=== PATIENT | female | born 1945 | race Caucasian/White ===

== ENCOUNTER 2022-11-28 01:24 | Observation (INO) | payer OTHER ==
[2022-11-28] MEDS ORDERED: ONDANSETRON 4 MG/2 ML VIAL ONE (01:55)
[2022-11-28] MEDS ORDERED: FENTANYL CITR 100 MCG/2 ML ONE ×2 (01:55→03:06)
[2022-11-28] MEDS ORDERED: NA CHLORIDE 0.9% 500 ML ONE (01:55)
[2022-11-28 02:19] LABS: Absolute Lymphocytes (CBC) 1.6 K/uL (0.7-4.9); Hematocrit 36.8 % (36.0-45.0); Lymphocytes % 18.1 % (15.3-44.8); MCV 96.1 fL (80-100); MPV 9.1 fL (7.6-11.3); RBC Red Blood Cell Count 3.83 M/uL (3.86-4.86)
[2022-11-28 02:34] LABS: Bilirubin Total 0.6 mg/dL (0.2-1.0); Potassium 3.5 mEq/L (3.5-5.1)
[2022-11-28] MEDS ORDERED: DIAZEPAM 5 MG TABLET ONE (03:07)
[2022-11-28] MEDS ORDERED: KETOROLAC 30 MG/ML INJ ONE (03:08)
[2022-11-28] MEDS ORDERED: dexAMETHasone 10 MG/ML VIAL ONE (03:08)
--- NOTE | 2022-11-28 03:24 | EDPHYS ---
Physician Documentation [facility] Name: Christal Krishnamurthy Age: 77 yrs Sex: Female : 1945 Arrival Date: 11/28/2022 Time: 01:24 Bed 6 Private MD: ED Physician Jose Aguilar HPI: 11/28 02:06 This 77 yrs old Female presents to ER via EMS with complaints of right hip ana and back pain. 02:06 The patient or guardian reports decreased range of motion, pain. that occurred at an [facility] unknown site. The complaints affect the lumbar area. Onset: The symptoms/episode began/occurred yesterday. Modifying factors: The symptoms are alleviated by nothing, the symptoms are aggravated by any movement. The patient presents with pain that is acute. Onset: The symptoms/episode began/occurred yesterday, 1 day(s) ago. Historical: - Allergies: 01:27 Nexium; jb4 01:27 Latex, Natural Rubber; jb4 01:27 Levaquin; jb4 01:27 Wheat/glutens; jb4 01:27 Wine; jb4 01:27 Eggs; jb4 01:27 Cyanoacrylates; jb4 01:27 Amoxicillin; jb4 01:27 Antihistamine with decongestant; jb4 - PMHx: 01:27 Asthma; jb4 - PSHx: 01:27 Back; heart bypass; jb4 - Immunization history:: Adult Immunizations up to date. - Family history:: not pertinent. - Social history:: Smoking status: Patient denies any tobacco usage or history of. ROS: 02:06 Constitutional: Negative for fever, chills, and weight loss, Eyes: Negative for injury, ana pain, redness, and discharge, ENT: Negative for injury, pain, and discharge, Neck: Negative for injury, pain, and swelling, Cardiovascular: Negative for chest pain, palpitations, and edema, Respiratory: Negative for shortness of breath, cough, wheezing, and pleuritic chest pain, Abdomen/GI: Negative for abdominal pain, nausea, vomiting, diarrhea, and constipation, : Negative for injury, bleeding, discharge, and swelling, Skin: Negative for injury, rash, and discoloration, Neuro: Negative for headache, weakness, numbness, tingling, and seizure, Psych: Negative for depression, anxiety, suicide ideation, homicidal ideation, and hallucinations, Allergy/Immunology: Negative for hives, rash, and allergies, Endocrine: Negative for neck swelling, polydipsia, polyuria, polyphagia, and marked weight changes, Hematologic/Lymphatic: Negative for swollen nodes, abnormal bleeding, and unusual bruising. 02:06 Back: Positive for injury or acute deformity, decreased range of motion, pain with movement, of the lumbar area. Exam: 02:06 Constitutional: This is a well developed, well nourished patient who is awake, alert, ana and in no acute distress. Head/Face: Normocephalic, atraumatic. Eyes: Pupils equal round and reactive to light, extra-ocular motions intact. Lids and lashes normal. Conjunctiva and sclera are non-icteric and not injected. Cornea within normal limits. Periorbital areas with no swelling, redness, or edema. ENT: Nares patent. No nasal discharge, no septal abnormalities noted. Tympanic membranes are normal and external auditory canals are clear. Oropharynx with no redness, swelling, or masses, exudates, or evidence of obstruction, uvula midline. Mucous membranes moist. Neck: Trachea midline, no thyromegaly or masses palpated, and no cervical lymphadenopathy. Supple, full range of motion without nuchal rigidity, or vertebral point tenderness. No Meningismus. Chest/axilla: Normal chest wall appearance and motion. Nontender with no deformity. No lesions are appreciated. Cardiovascular: Regular rate and rhythm with a normal S1 and S2. No gallops, murmurs, or rubs. Normal PMI, no JVD. No pulse deficits. Respiratory: Lungs have equal breath sounds bilaterally, clear to auscultation and percussion. No rales, rhonchi or wheezes noted. No increased work of breathing, no retractions or nasal flaring. Abdomen/GI: Soft, non-tender, with normal bowel sounds. No distension or tympany. No guarding or rebound. No evidence of tenderness throughout. Female : Normal external genitalia. Skin: Warm, dry with normal turgor. Normal color with no rashes, no lesions, and no evidence of cellulitis. MS/ Extremity: Pulses equal, no cyanosis. Neurovascular intact. Full, normal range of motion. Neuro: Awake and alert, GCS 15, oriented to person, place, time, and situation. Cranial nerves II-XII grossly intact. Motor strength 5/5 in all extremities. Sensory grossly intact. Cerebellar exam normal. Normal gait. Psych: Awake, alert, with orientation to person, place and time. Behavior, mood, and affect are within normal limits. 02:06 Back: pain, that is moderate, ROM is painful, normal spinal alignment noted, CVA tenderness, is absent. Vital Signs: 01:25 BP 149 / 66; Pulse 56; Resp 16; Temp 98(O); Pulse Ox 98% on R/A; Weight 72.57 kg (R); jb4 Height 5 ft. 5 in. (R); Pain 0/10; 03:22 BP 120 / 68; Pulse 51; Resp 18; Pulse Ox 96% on R/A; as6 04:09 BP 117 / 59; Pulse 81; Resp 18 S; Pulse Ox 95% on R/A; as6 01:25 Body Mass Index 26.63 (72.57 kg, 165.1 cm) jb4 01:25 Pain Scale: Adult jb4 MDM: 01:39 Patient medically screened. [facility] 02:10 Differential diagnosis: bursitis, arthritis, strain, arthritis. Data reviewed: vital ana signs, nurses notes, lab test result(s), radiologic studies, CT scan. Consideration of Admission/Observation Escalation of care including admission/observation considered. I considered the following discharge prescriptions or medication management in the emergency department Medications were administered in the Emergency Department. See MAR. Independent interpretation of the following test(s) in the Emergency Department CT Scan: My interpretation is ct lumbar. Test considered but Not performed: MRI: no mri. Historians other than the Patient: Spouse/Significant Other: . Care significantly affected by the following chronic conditions: asthma. Counseling: I had a detailed discussion with the patient and/or guardian regarding: the historical points, exam findings, and any diagnostic results supporting the discharge/admit diagnosis, lab results, radiology results. 11/28 01:39 Order name: CBC with Diff; Complete Time: 02:45 ana 11/28 01:39 Order name: Comprehensive Metabolic Panel; Complete Time: 02:45 ana 11/28 01:39 Order name: Urinalysis w/ reflexes ana 11/28 01:39 Order name: Lipase; Complete Time: 02:45 ana 11/28 03:42 Order name: Urinalysis w/ reflexes EDMS 11/28 03:42 Order name: Basic Metabolic Panel EDMS 11/28 03:42 Order name: Basic Metabolic Panel EDMS 11/28 03:42 Order name: Basic Metabolic Panel EDMS 11/28 03:42 Order name: Basic Metabolic Panel EDMS 11/28 03:42 Order name: CBC with Automated Diff EDMS 11/28 03:42 Order name: CBC with Automated Diff EDMS 11/28 03:42 Order name: CBC with Automated Diff EDMS 11/28 03:42 Order name: CBC with Automated Diff EDMS 11/28 01:39 Order name: CT Lumbar Spine Wo Con ana 11/28 02:17 Order name: Hip Right 2 View EDMS 11/28 03:42 Order name: Physical Therapy Consult EDMS Administered Medications: 01:52 Drug: NS 0.9% IV 500 ml Route: IV; Rate: bolus; Site: right antecubital; jb4 04:16 Follow up: Response: No adverse reaction; IV Status: Completed infusion; IV Intake: as6 500ml 01:52 Drug: fentaNYL (PF) IVP 25 mcg Route: IVP; Site: right antecubital; jb4 04:16 Follow up: Response: No adverse reaction as6 01:52 Drug: Ondansetron IVP 4 mg Route: IVP; Site: right antecubital; jb4 04:16 Follow up: Response: No adverse reaction as6 03:12 Drug: fentaNYL (PF) IVP 25 mcg Route: IVP; Site: right antecubital; jb4 04:16 Follow up: Response: No adverse reaction as6 03:12 Drug: Decadron - Dexamethasone IVP 10 mg Route: IVP; Site: right antecubital; jb4 04:16 Follow up: Response: No adverse reaction as6 03:12 Drug: Diazepam PO 5 mg Route: PO; jb4 04:16 Follow up: Response: No adverse reaction as6 03:12 Drug: Ketorolac IVP 15 mg Route: IVP; Site: right antecubital; jb4 04:15 Follow up: Response: No adverse reaction as6 Disposition Summary: 11/28/22 03:23 Hospitalization Ordered Hospitalization Status: Observation ana Provider: Thong Hui cha Location: Telemetry/MedSurg (observation) ana Condition: Stable ana Problem: new ana Symptoms: have improved ana Bed/Room Type: Standard ana Room Assignment: 211(11/28/22 03:26) mw Diagnosis - Low back pain ana - Sciatica, right side ana - Unspecified symptoms and signs involving the musculoskeletal system ana Forms: - Medication Reconciliation Form ana - SBAR form ana Signatures: Dispatcher [employer] EDMS Joanie Clarke RN RN mw Anderson, Corey, MD MD cha Bryson, James, RN RN jb4 Yoel Gandara RN RN as6 Corrections: (The following items were deleted from the chart) 02: 02:06 Hip Left 2 View+RAD.RAD.BRZ ordered. EDMS EDMS 02:17 02:10 Hip Right 2 View+RAD.RAD.BRZ ordered. EDMS EDMS 03:26 03:23 ana mw
--- NOTE | 2022-11-28 03:24 | ER ---
Nurse's Notes [facility] Name: Christal Krishnamurthy Age: 77 yrs Sex: Female : 1945 Arrival Date: 11/28/2022 Time: 01:24 Bed 6 Private MD: Diagnosis: Low back pain;Sciatica, right side;Unspecified symptoms and signs involving the musculoskeletal system Presentation: 11/28 01:25 Chief complaint: EMS states: Pt reports moving into a new house. Was moving objects for jb4 the new house, started having lower back pain around 10am. It has progressively gotten worse. Denies falling or any other trauma. Coronavirus screen: At this time, the client does not indicate any symptoms associated with coronavirus-19. Ebola Screen: No symptoms or risks identified at this time. Initial Sepsis Screen: Does the patient meet any 2 criteria? No. Patient's initial sepsis screen is negative. Does the patient have a suspected source of infection? No. Patient's initial sepsis screen is negative. Risk Assessment: Do you want to hurt yourself or someone else? Patient reports no desire to harm self or others. Onset of symptoms was November 28, 2022. Transition of care: patient was not received from another setting of care. 01:25 Method Of Arrival: EMS: [facility] 01:25 Acuity: ARETHA 4 jb4 Historical: - Allergies: 01:27 Nexium; jb4 01:27 Latex, Natural Rubber; jb4 01:27 Levaquin; jb4 01:27 Wheat/glutens; jb4 01:27 Wine; jb4 01:27 Eggs; jb4 01:27 Cyanoacrylates; jb4 01:27 Amoxicillin; jb4 01:27 Antihistamine with decongestant; jb4 - PMHx: 01:27 Asthma; jb4 - PSHx: 01:27 Back; heart bypass; jb4 - Immunization history:: Adult Immunizations up to date. - Family history:: not pertinent. - Social history:: Smoking status: Patient denies any tobacco usage or history of. Screenin:08 [facility] ED Fall Risk Assessment (Adult) Score/Fall Risk Level 0 - 2 = Low Risk. Abuse as6 screen: Denies threats or abuse. Denies injuries from another. Nutritional screening: No deficits noted. Tuberculosis screening: No symptoms or risk factors identified. Assessment: 01:30 General: Appears in no apparent distress. comfortable, Behavior is calm, cooperative, jb4 appropriate for age. Pain: Complains of pain in low back area Pain does not radiate. Pain currently is 0 out of 10 on a pain scale. at worst was 10 out of 10 on a pain scale. Neuro: Level of Consciousness is awake, alert, obeys commands, Oriented to person, place, time, situation. Cardiovascular: Patient's skin is warm and dry. Respiratory: Airway is patent Respiratory effort is even, unlabored, Respiratory pattern is regular, symmetrical. GI: No signs and/or symptoms were reported involving the gastrointestinal system. : No signs and/or symptoms were reported regarding the genitourinary system. EENT: No signs and/or symptoms were reported regarding the EENT system. Derm: Skin is intact, Skin is pink, warm \T\ dry. Musculoskeletal: Circulation, motion, and sensation intact. Range of motion: intact in all extremities. 02:02 Reassessment: Patient appears in no apparent distress at this time. Patient and/or jb4 family updated on plan of care and expected duration. Pain level reassessed. Patient is alert, oriented x 3, equal unlabored respirations, skin warm/dry/pink. Vital Signs: 01:25 BP 149 / 66; Pulse 56; Resp 16; Temp 98(O); Pulse Ox 98% on R/A; Weight 72.57 kg (R); jb4 Height 5 ft. 5 in. (R); Pain 0/10; 03:22 BP 120 / 68; Pulse 51; Resp 18; Pulse Ox 96% on R/A; as6 04:09 BP 117 / 59; Pulse 81; Resp 18 S; Pulse Ox 95% on R/A; as6 01:25 Body Mass Index 26.63 (72.57 kg, 165.1 cm) jb4 01:25 Pain Scale: Adult jb4 ED Course: 01:24 Patient arrived in ED. as6 01:25 Geovani Reddy, MELCHOR is Primary Nurse. jb4 01:27 Triage completed. jb4 01:30 Arm band placed on right wrist. jb4 01:36 Jose Aguilar MD is Attending Physician. ana 02:17 Hip Right 2 View In Process Unspecified. EDMS 02:29 CT Lumbar Spine Wo Con In Process Unspecified. EDMS 02:40 Inserted saline lock: 20 gauge in right antecubital area, using aseptic technique. as6 Blood collected. 03:23 Thong Hui MD is Hospitalizing Provider. ana 04:08 Bed in low position. Call light in reach. Adult w/ patient. as6 04:08 No provider procedures requiring assistance completed. Patient admitted, IV remains in as6 place. Administered Medications: 01:52 Drug: NS 0.9% IV 500 ml Route: IV; Rate: bolus; Site: right antecubital; jb4 04:16 Follow up: Response: No adverse reaction; IV Status: Completed infusion; IV Intake: as6 500ml 01:52 Drug: fentaNYL (PF) IVP 25 mcg Route: IVP; Site: right antecubital; jb4 04:16 Follow up: Response: No adverse reaction as6 01:52 Drug: Ondansetron IVP 4 mg Route: IVP; Site: right antecubital; jb4 04:16 Follow up: Response: No adverse reaction as6 03:12 Drug: fentaNYL (PF) IVP 25 mcg Route: IVP; Site: right antecubital; jb4 04:16 Follow up: Response: No adverse reaction as6 03:12 Drug: Decadron - Dexamethasone IVP 10 mg Route: IVP; Site: right antecubital; jb4 04:16 Follow up: Response: No adverse reaction as6 03:12 Drug: Diazepam PO 5 mg Route: PO; jb4 04:16 Follow up: Response: No adverse reaction as6 03:12 Drug: Ketorolac IVP 15 mg Route: IVP; Site: right antecubital; jb4 04:15 Follow up: Response: No adverse reaction as6 Medication: 04:08 VIS not applicable for this client. as6 Intake: 04:16 IV: 500ml; Total: 500ml. as6 Outcome: 03:23 Decision to Hospitalize by Provider. ana 04:08 Admitted to Med/surg family with patient, via stretcher, room 211, with chart. as6 04:08 Condition: stable 04:08 Instructed on the need for admit. 04:15 Patient left the ED. as6 Signatures: Dispatcher [employer] EDJose Muñiz MD MD cha Bryson, James, RN RN jb4 Yoel Gandara RN RN as6 Corrections: (The following items were deleted from the chart) 01:30 01:25 Acuity: ARETHA 2 jb4 jb4
[2022-11-28] MEDS ORDERED: ACETAMINOPHEN 500 MG TAB PO PRN (03:35)
--- NOTE | 2022-11-28 03:35 | P.HP ---
Certification for Inpatient Patient admitted to: Observation With expected LOS: <2 Midnights Patient will require the following post-hospital care: Other (OP PT, OT,) Practitioner: I am a practitioner with admitting privileges, knowledge of patient current condition, hospital course, and medical plan of care. Services: Services provided to patient in accordance with Admission requirements found in Title 42 Section 412.3 of the Code of Federal Regulations <Cookie Hart - Last Filed: 11/28/22 04:47> Patient History Date of Service: 11/28/22 Reason for admission: intractable back pain History of Present Illness: 77 yrs old Female with past medical history of Chronic lung disease on home 02 prn and HS, asthma, Hypothyroidism, DJD, OA, diverticulitis, frequent falls, depression, WINNIE, presents to ER via EMS with complaints of lumbar back pain. She reports that the pain radiates to abdomen that is intermittent, made worse by ambulation, bending, turning. She reports history x 4 Back surgeries in the past. She reports she has been moving for the past 3 weeks and lifting a few things, that may have triggered her back pain. She reports she had difficulty rising from the commode, she denies bars in her bathroom, (may benefit from raised toilet seat with bars). She reports the low back pain was worse today. She reports history of falls, she does not have rolling walker with seat. She reports back pain is better with rest, pain medications. She denies fever, dysuria, She denies pain radiating to lower extremities, no lower ext weakness, denies incont of Bowel or bladder, chest pain. She reports needing 02 with ambulation, which she has at home, but has trouble carrying with her back pain. , is at bedside. . - Past Medical/Surgical History -: OA -: DJD -: chronic low back pain -: Depression -: History of falls -: Asthma -: WINNIE -: Chronic lung disease on home 02 prn and HS -: Hyppthyroidism -: Diverticulosis -: X4 Back surgeries -: Hystertectomy -: Knee scraping of deposits Psychosocial/ Personal History: , retired, good family support, lives in a 2 story home - Social History Smoking Status: Never smoker Alcohol use: No <Cookie Hart - Last Filed: 11/28/22 04:47> Date of Service: 11/28/22 <Thong Hui - Last Filed: 11/28/22 10:49> Allergies 2-octyl cyanoacrylate [octyl 2-cyanoacrylate] Allergy (Verified 04/09/12 09:07) Anaphylaxis amoxicillin [Amoxicillin] Allergy (Verified 04/09/12 09:07) Rash esomeprazole mag [From Nexium] Allergy (Verified 04/09/12 09:02) Anaphylaxis wheat Allergy (Verified 04/09/12 09:07) Anaphylaxis Antihistamines - Alkylamine Adverse Reaction (Verified 04/09/12 09:07) states in ones with decongestants it aggrevates her heart levofloxacin [From Levaquin] Adverse Reaction (Verified 04/09/12 09:07) stomach cramps metronidazole Adverse Reaction (Verified 04/09/12 09:07) stomach cramps rosuvastatin calcium [From Crestor] Adverse Reaction (Verified 04/09/12 09:07) weakness Physical Examination - Physical Exam General: Alert, In no apparent distress, Oriented x3, Other (moderate generalized weakness) HEENT: Atraumatic, Normocephalic, PERRLA Neck: Supple, 2+ carotid pulse no bruit Respiratory: Clear to auscultation bilaterally, Normal air movement Cardiovascular: No edema, Regular rate/rhythm, Normal S1 S2 Capillary refill: <2 Seconds Gastrointestinal: Normal bowel sounds, Non-distended Musculoskeletal: No clubbing, No swelling, Other (lumbar, paraspinal tenderness, pain with ROM) Integumentary: No rashes, No breakdown Neurological: Normal strength at 5/5 x4 extr, Cranial nerves 3-12 intact External genitalia: No edema, No lesions - Studies Laboratory Data (last 24 hrs) 11/28/22 01:44: Sodium 137, Potassium 3.5, BUN 17, Creatinine 0.56, Glucose 123 H, Total Bilirubin 0.6, AST 12 L, ALT 16, Alkaline Phosphatase 35 L, Lipase 22 11/28/22 01:44: WBC 8.60, Hgb 12.3, Hct 36.8, Plt Count 167 <Cookie Hart - Last Filed: 11/28/22 04:47> - Studies Laboratory Data (last 24 hrs) 11/28/22 01:44: Sodium 137, Potassium 3.5, BUN 17, Creatinine 0.56, Glucose 123 H, Total Bilirubin 0.6, AST 12 L, ALT 16, Alkaline Phosphatase 35 L, Lipase 22 11/28/22 01:44: WBC 8.60, Hgb 12.3, Hct 36.8, Plt Count 167 <Thong Hui - Last Filed: 11/28/22 10:49> Assessment and Plan - Problems (Diagnosis) (1) Intractable back pain Current Visit: Yes Status: Acute Plan: PRN analgesics PT/OT fall precaution (2) DJD (degenerative joint disease) Current Visit: Yes Status: Acute Plan: Prn analgesics, muscle relaxers PT/OT will like need OP PT/OT for gait training, exercises Qualifiers: Osteoarthritis location: knee Osteoarthritis type: unspecified (3) Osteoarthritis (arthritis due to wear and tear of joints) Current Visit: Yes Status: Acute Qualifiers: Osteoarthritis location: knee (4) Falls frequently Current Visit: Yes Status: Chronic Plan: PT/OT gait training fall precautions (5) Chronic lung disease Current Visit: Yes Status: Chronic Plan: resume approp home med o2 2L PRN, HS (6) On home oxygen therapy Current Visit: Yes Status: Chronic (7) Hypothyroidism Current Visit: Yes Status: Chronic Plan: resume home medications Discharge Plan: Home Plan to discharge in: 48 Hours - Advance Directives Does patient have a Living Will: No Does patient have a Durable POA for Healthcare: No - Code Status/Comfort Care Code Status: Full Code Physician Review: Patient Assessed, Agree with Above Assessment and Plan Critical Care: No Time Spent Managing Pts Care (In Minutes): 55 <Cookie Hart - Last Filed: 11/28/22 04:47> Physician Review: Patient Assessed, Agree with Above Assessment and Plan <Thong Hui - Last Filed: 11/28/22 10:49>
[2022-11-28] MEDS ORDERED: CYCLOBENZAPRINE 10 MG TAB PO PRN (03:41)
[2022-11-28] MEDS ORDERED: HYDROCODONE/APAP 5/325 MG TAB PO PRN (04:18)
[2022-11-28 05:03] VITALS: BMI 28.3
[2022-11-28] MEDS ORDERED: POTASSIUM CL SA 10 MEQ TAB PO ONE (06:00)
[2022-11-28] MEDS ORDERED: PNEUMOCOCCAL VACCINE 0.5 ML IMVAC ONE (08:00)
[2022-11-28] MEDS ORDERED: ONDANSETRON 4 MG/2 ML VIAL IV PRN (08:00)
[2022-11-28 08:11] VITALS: BP 136/68; TEMP 97.5
[2022-11-28] MEDS ORDERED: ENOXAPARIN 40 MG/0.4 ML SQ SCH (09:00)
[2022-11-28] MEDS ORDERED: LIDOCAINE 4% PATCH TOP SCH (09:00)
--- NOTE | 2022-11-28 09:05 | RAD REPORT ---
EXAM DESCRIPTION: RAD - Hip Right 2 View - 11/28/2022 2:16 am CLINICAL HISTORY: Right hip pain FINDINGS: The examination was submitted to [facility] but did not get dictated. It is being submitted fo [facility] for interpretation now. No fracture or dislocation is seen. Mild joint space narrowing with mild subchondral sclerosis. Calcification adjacent to the greater tro chanter right femur likely chronic
[2022-11-28 09:12] LABS: Specific Gravity 1.021 (1.005-1.030); Urine Bacteria None Seen /HPF (<20); Urine Bilirubin NEGATIVE (Negative); Urine Blood Negative (Negative); Urine Clarity Clear (Clear); Urine Color Yellow (Yellow); Urine Glucose 4+ (Over) (Negative); Urine Protein NEGATIVE (Negative); Urine RBC <5 /HPF (None Seen); Urine Urobilinogen Normal (Normal); Urine pH 6.5 (5.0-7.0)
[2022-11-28 10:01] VITALS: O2SAT 91
--- NOTE | 2022-11-28 10:56 | P.DS ---
Admission Date: 11/28/22 Discharge Date: 11/28/22 Disposition: ROUTINE DISCHARGE Reason for Admission: intractable back pain Hospital Course: DIAGNOSES: # Acute on Chronic Back Pain likely secondary to Muscle Strain # Mild- Moderate Central Canal Stenosis (L1-L2, L2-L3) # Severe Central Canal Stenosis (L3-L4) # Chronic Hypoxic Respiratory Failure secondary to Pulmonary Hypertension on PRN Home Oxygen # Chronic Compensated Congestive Heart Failure - Unknown Ejection Fraction # Obstructive Sleep Apnea # Asthma # Hypothyroidism # Depression # Splenic Artery Aneurysm (1.6 cm) HOSPITAL COURSE: Ms. Christal Krishnamurthy is a pleasant 77 year old female with a past medical history significant for spinal stenosis s/p 4 prior back surgeries, chronic hypoxic respiratory failure secondary to pulmonary hypertension on as needed home oxygen, obstructive sleep apnea, asthma, hypothyroidism, depression who was admitted to the [facility] on 11/28/2022 for back pain. She was admitted to the Medicine service. Upon further evaluation, she reported that she has been moving heavy boxes over the last 3-4 weeks. Since then, she has been experiencing significant lower back pain. She has a history of chronic back pain and feels that her symptoms had gotten worse. Her right hip x-ray revealed, "no fracture or dislocation is seen. Mild joint space narrowing with mild subchondral sclerosis. Calcification adjacent to the greater trochanter right femur likely chronic." Her CT lumbar spine revealed, "1. No acute fracture or subluxation of the lumbar spine. 2. Multilevel degenerative changes of the lumbar spine as described. Severe central canal stenosis at L3-L4 with grade 1 anterolisthesis of L3 on L4. Prominent left neural foraminal narrowing at L4-L5. 3. Peripherally calcified lesion in the left upper quadrant likely splenic artery aneurysm measuring approximately 1.6 cm in diameter, likely incidental finding." Over the course of her hospitalization, her symptoms improved significantly. Physical Therapy was consulted. She was able to walk 250 feet with PT. PT recommended that she be discharged with a walker and, with the assistance of case management, this was arranged. During her stay, she did not exhibit any alarm symptoms. She specifically denied any fevers, chills, unilateral weakness, saddle anesthesia, or urinary/bowel incontinence. On 11/28/2022, she was seen on rounds and deemed medically stable for discharge. She was discharged with instructions to schedule follow-up appointments with her PCP (Dr. Li) and her Back Surgeon. She and family members were given the opportunity to ask questions and reported no further questions. Furthermore, all questions were answered to the best of my ability. A copy of this discharge summary will be sent to the above providers to facilitate continuity of care. Today, I personally spent 25 minutes on her case, of which greater than 50% of the time was spent in patient education, counseling, and coordination of care as described above. Vital Signs/Physical Exam: Temp Pulse Resp BP Pulse Ox 97.5 F 52 15 136/68 95 11/28/22 08:00 11/28/22 08:00 11/28/22 08:00 11/28/22 08:00 11/28/22 08:00 General: Alert, In no apparent distress, Oriented x3 HEENT: Atraumatic, Mucous membr. moist/pink, Sclerae nonicteric Neck: JVD not distended Respiratory: Clear to auscultation bilaterally, Normal air movement Cardiovascular: No edema, Regular rate/rhythm, Normal S1 S2, No gallops, No rubs, No murmurs Gastrointestinal: Normal bowel sounds, Soft and benign, Non-distended, No tenderness, No rebound, No guarding Musculoskeletal: No clubbing, Other (lower back pain to palpation) Integumentary: No rashes Neurological: Normal speech, Normal strength at 5/5 x4 extr, Sensation intact, Cranial nerves 3-12 intact, Normal affect Laboratory Data at Discharge: WBC 8.60 thou/uL (4.3-10.9) 11/28/22 01:44 Hgb 12.3 g/dL (12.0-15.0) 11/28/22 01:44 Hct 36.8 % (36.0-45.0) 11/28/22 01:44 Plt Count 167 thou/uL (152-406) 11/28/22 01:44 Sodium 137 mEq/L (136-145) 11/28/22 01:44 Potassium 3.5 mEq/L (3.5-5.1) 11/28/22 01:44 BUN 17 mg/dL (7-18) 11/28/22 01:44 Creatinine 0.56 mg/dL (0.55-1.02) 11/28/22 01:44 Glucose 123 mg/dL (74-106) H 11/28/22 01:44 Total Bilirubin 0.6 mg/dL (0.2-1.0) 11/28/22 01:44 AST 12 U/L (15-37) L 11/28/22 01:44 ALT 16 U/L (13-56) 11/28/22 01:44 Alkaline Phosphatase 35 U/L (45-117) L 11/28/22 01:44 Lipase 22 U/L (13-75) 11/28/22 01:44 Home Medications: Lidocaine 4% Patch [Lidoderm 5% Patch*] 1 patch TOP DAILY pat 11/28/22 Physician Discharge Instructions: 1. Please attend your appointment with your PCP (Dr. Li) on 11/30/2022 - On your CT scan, an aneurysm measuring 1.6 cm was found in an artery in your spleen. Please discuss with Dr. Li. - For your back, please rest and limit picking up boxes for your move - You can alternate ice/heat, use topical lidocaine patches, and take acetaminophen (Tylenol) 650 mg every 6 hours as needed for pain 2. Please call and schedule a follow-up appointment with your back surgeon in 3- 5 days Diet: Regular Activity: Fall precautions Followup: Ant Li MD [ACTIVE - CAN ADMIT] - Time spent managing pt's care (in minutes): 25
--- NOTE | 2022-11-28 19:26 | RAD REPORT ---
EXAM DESCRIPTION: CT - Spine Lumbar Wo Con - 11/28/2022 7:06 am CLINICAL HISTORY: PAIN TECHNIQUE: Contiguous axial CT images obtained through the lumbar spine without IV contrast. Coronal and sagittal reformatted images also provided. This exam was performed according to our departmental dose-optimization program, which includes autom ated exposure control, adjustment of the mA and/or kV according to patient size and/or use of iterati ve reconstruction technique. COMPARISON: None available for comparison FINDINGS: Vertebra: No acute fracture or subluxation. Mild scoliotic curvature of the lumbar spine w ith convexity to the left. Disc spaces: Narrowing of the L1-L2, and L4-L5 intervertebral disc spaces. Broad-based disc bulging at L1-L2, L2-L3 with mild to moderate central canal stenosis. More prominent broad-based disc bulging at L3-L4 with grade 1 anterolisthesis of L3 on L4 and severe central canal stenosis. Prominent facet joint hypertrophy. Mild broad-based disc bulging at L4-L5 with no central canal stenosis. Facet joint arthropathy left g reater than right. Prominent left neural foraminal narrowing. Broad-based disc bulging at L5-S1 with no central canal stenosis. Prominent facet joint arthropathy. Soft tissues: Peripherally calcified lesion in the left upper quadrant likely splenic artery aneurysm measuring approximately 1.6 cm in diameter, likely incidental finding. IMPRESSION: 1. No acute fracture or subluxation of the lumbar spine. 2. Multilevel degenerative changes of the lumbar spine as described. Severe central canal stenosis at L3-L4 with grade 1 anterolisthesis of L3 on L4. Prominent left neural foraminal narrowing at L4-L5 . 3. Peripherally calcified lesion in the left upper quadrant likely splenic artery aneurysm measurin g approximately 1.6 cm in diameter, likely incidental finding. Electronically signed by: Davi Walker MD 11/28/2022 2:57 AM CDT Due to temporary technical issues with the PACS/Fluency reporting system, reports are being signed by the in house radiologists without review as a courtesy to insure prompt reporting. The interpreting radiologist is fully responsible for the content of the report.
== END 2022-11-28 12:00 | disposition home or self-care (01) ==
LOC: ER 01:24 → 2ND 03:57
PROVIDERS: ADMIT Internal Medicine; ATTEND Internal Medicine
DX: M54.9 Dorsalgia, unspecified (principal); M48.061 Spinal stenosis, lumbar region without neurogenic claudication; M19.90 Unspecified osteoarthritis, unspecified site; M17.10 Unilateral primary osteoarthritis, unspecified knee; J98.4 Other disorders of lung; E03.9 Hypothyroidism, unspecified; F32.A Depression, unspecified; J96.11 Chronic respiratory failure with hypoxia; I50.9 Heart failure, unspecified; G47.33 Obstructive sleep apnea (adult) (pediatric); J45.909 Unspecified asthma, uncomplicated; I72.8 Aneurysm of other specified arteries; Z91.81 History of falling; Z99.81 Dependence on supplemental oxygen
CPT/HCPCS: 85025; 81001; 36415; 83690; 80053; 72131; 73502; 97110; 97112; 97116; 97162; 97530; 94760; J2001; J1650; J3010 ×2; J1100; J2405; J7040; G0378

== ENCOUNTER 2023-11-07 17:40 | Inpatient (IN) | payer OTHER ==
[2023-11-07] MEDS ORDERED: IPRATROPIUM BROM 0.5MG/2.5ML ONE (19:13)
[2023-11-07] MEDS ORDERED: ALBUTEROL 2.5 MG/3 ML NEB SOL ONE (19:13)
--- NOTE | 2023-11-07 19:40 | RAD REPORT ---
EXAM DESCRIPTION: Charan Single View11/07/2023 6:20 pm CLINICAL HISTORY: SOB COMPARISON: No comparisons TECHNIQUE: Portable AP view of the chest. FINDINGS: The lungs are clear. No pneumothorax or effusion. Mild cardiomegaly. Mediastinal contours are unremarkable apart from sequelae of CABG. Deformity along the left mid left clavicle, suggestin g prior fracture. IMPRESSION: No acute pulmonary process. Mild cardiomegaly and sequelae of CABG.
[2023-11-07 19:41] LABS: Absolute Eosinophils 0.1 K/uL (0-0.5); Absolute Lymphocytes (CBC) 2.5 K/uL (0.7-4.9); Absolute Monocytes 0.6 K/uL (0.1-1.3); Absolute Neutrophil 2.5 K/uL (1.8-8.0); Basophils % 0.6 % (0-1.3); Eosinophils % 2.5 % (0-4.4); Hematocrit 39.6 % (36.0-45.0); Hemoglobin 13.1 g/dL (12.0-15.0); Lymphocytes % 42.6 % (15.3-44.8); MCH 32.4 pg (27.0-35.0); MCHC 33.1 g/dL (32.0-36.0); MCV 97.9 fL (80-100); MPV 9.2 fL (7.6-11.3); Monocytes % 10.7 % (3.3-12.3); Neutrophils % 43.6 % (41.7-73.7); Nucleated Red Blood Cells % 0.1 % (0-0); Platelets 170 thou/uL (152-406); RBC Red Blood Cell Count 4.04 M/uL (3.86-4.86); Red Cell Distribution Width 14.4 % (12.1-15.2)
[2023-11-07 19:43] LABS: PT Prothrombin Time 13.9 SECONDS (9.5-12.5); Protime INR 1.27; Sqamous Epithelial <5 /HPF (None Seen); Urine Bacteria <20 /HPF (<20); Urine Micro Reflex YN NO BILL MICROSCOPIC; Urine Mucus Slight /HPF (None Seen); Urine RBC <5 /HPF (None Seen); Urine WBC <5 /HPF (<5)
[2023-11-07 19:44] LABS: Specific Gravity 1.005 (1.005-1.030); Urine Bilirubin NEGATIVE (Negative); Urine Blood Negative (Negative); Urine Clarity Clear (Clear); Urine Color Colorless (Yellow); Urine Glucose 3+ (Negative); Urine Ketones NEGATIVE (Negative); Urine Nitrite NEGATIVE (Negative); Urine Protein NEGATIVE (Negative); Urine Urobilinogen Normal (Normal); Urine pH 6.5 (5.0-7.0)
[2023-11-07 19:57] LABS: Albumin 3.2 g/dL (3.4-5.0); Albumin/Globulin Ratio 0.8 (1.1-1.8); Anion Gap 7.8 mEq/L (5.0-15.0); Bilirubin Direct 0.2 mg/dL (0-0.2); Bilirubin Indirect, Calculated 0.2 mg/dL (0.2-0.8); Bilirubin Total 0.4 mg/dL (0.2-1.0); Globulin 4.2 g/dL (2.3-3.5); Magnesium 2.4 mg/dL (1.6-2.4); Potassium 3.8 mEq/L (3.5-5.1); Protein, Total 7.4 g/dL (6.4-8.2); Troponin High Sensitivity 11.4 pg/mL (<58.9)
[2023-11-07] MEDS ORDERED: FUROSEMIDE 40 MG/4 ML VIAL ONE (20:52)
[2023-11-07 21:26] LABS: SARS-CoV-2 Antigen CONTROL BLUE LINE VIS/BG OK; SARS-CoV-2 Antigen Rapid Res Negative (Negative)
--- NOTE | 2023-11-07 21:26 | RAD REPORT ---
EXAM DESCRIPTION: CT - Chest For Pe Angio - 11/07/2023 8:09 pm CLINICAL HISTORY: SOB COMPARISON: Chest Single View dated 11/07/2023 TECHNIQUE: Thin axial CT images of the chest were obtained following administration of 100 mL Isovue 370 IV contrast. Multiplanar reconstructions, and maximum intensity projection reconstructions were generated and reviewed. Exam utilizes a protocol for optimal evaluation of pulmonary arterial tree. All CT scans are performed using dose optimization technique as appropriate and may include automated exposure control or mA/KV adjustment according to patient size. FINDINGS: Markedly prominent caliber of the main pulmonary artery measuring 4.3 cm in greatest calib er. Prominent caliber of the right and left pulmonary arteries as well. No emboli or other suspicious finding. No acute or significant aorta findings. Moderate cardiomegaly. Sequelae of CABG. Irregular consolidative right upper lobe 1.4 cm opacity with adjacent less opacification, abutting th e minor fissure. No pleural thickening or pleural effusion. No pneumothorax. No abnormal mediastinal or hilar masses or lymphadenopathy seen. No chest wall mass or abnormal axill iary lymphadenopathy. Right lateral rib deformity suggesting a remote fracture. Subtle hepatic 2.3 cm lesion suggesting a cyst, not well evaluated. Marginally calcified 1.7 cm splen ic artery aneurysm. IMPRESSION: No evidence of acute central pulmonary emboli. Negative CT scan of the chest for other significant findings. Prominent caliber of the main pulmonary artery as well as the right and left pulmonary arteries, sugg esting pulmonary hypertension. Right upper lobe 1.4 cm opacity with adjacent ground-glass opacification, favoring an infectious/infl ammatory etiologies such as focal pneumonia. A short-term follow-up CT is recommended in 1-3 months t o ensure resolution. Other incidental findings as above.
[2023-11-07] MEDS ORDERED: D5W 100 ML IV ONE (21:52)
[2023-11-07] MEDS ORDERED: AMIODARONE HCL 150 MG/3 ML INJ IV ONE (21:52)
[2023-11-07] MEDS ORDERED: AMIODARONE IN DEXTROSE,ISO-OSM 360 MG/200 ML BAG IV ONE (21:54)
--- NOTE | 2023-11-07 22:53 | ER ---
Nurse's Notes [facility] Name: Christal Krishnamurthy Age: 78 yrs Sex: Female : 1945 Arrival Date: 11/07/2023 Time: 17:40 Bed 2 Private MD: Diagnosis: Other pneumonia, unspecified organism;Unspecified atrial fibrillation;Dyspnea Presentation: 11/06 17:48 Chief complaint: Patient states: shortness of breath that has been increasing over the as6 last few months. Coronavirus screen: At this time, the client does not indicate any symptoms associated with coronavirus-19. Ebola Screen: No symptoms or risks identified at this time. Initial Sepsis Screen: Does the patient meet any 2 criteria? No. Patient's initial sepsis screen is negative. Does the patient have a suspected source of infection? No. Patient's initial sepsis screen is negative. Risk Assessment: Do you want to hurt yourself or someone else? Patient reports no desire to harm self or others. Onset of symptoms was November 07, 2023. 17:48 Method Of Arrival: Wheelchair as6 17:48 Acuity: ARETHA 2 as6 Historical: - Allergies: 17:50 wine; as6 17:50 Wheat/glutens; as6 17:50 Nexium; as6 17:50 Levaquin; as6 17:50 Eggs; as6 17:50 Cyanoacrylates; as6 17:50 Antihistamine with decongestant; as6 17:50 Amoxicillin; as6 17:50 Latex; as6 17:50 PENICILLINS; as6 - PMHx: 17:50 Asthma; as6 17:52 Congestive heart failure; as6 - PSHx: 17:50 back; heart bypass; as6 - Immunization history:: Adult Immunizations up to date. - Infectious Disease History:: Denies. - Social history:: Smoking status: Patient/guardian denies using tobacco, but has a distant history of tobacco abuse. Screenin:43 [facility] ED Fall Risk Assessment (Adult) History of falling in the last 3 months, ld1 including since admission No falls in past 3 months (0 pts). Abuse screen: Denies threats or abuse. Denies injuries from another. Nutritional screening: No deficits noted. Tuberculosis screening: No symptoms or risk factors identified. Assessment: 18:43 General: Appears in no apparent distress. comfortable, Behavior is calm, cooperative, ld1 appropriate for age. Pain: Denies pain. Neuro: Level of Consciousness is awake, alert, obeys commands, Oriented to person, place, time, situation. Cardiovascular: Capillary refill < 3 seconds Patient's skin is warm and dry. Rhythm is sinus rhythm Chest pain. Respiratory: Reports shortness of breath at rest on exertion Airway is patent Respiratory effort is even, unlabored. GI: Abdomen is flat, non-distended. : No signs and/or symptoms were reported regarding the genitourinary system. EENT: No signs and/or symptoms were reported regarding the EENT system. Derm: No signs and/or symptoms reported regarding the dermatologic system. Derm: No signs and/or symptoms reported regarding the dermatologic system. 20:28 General: Appears in no apparent distress. comfortable, slender, well groomed, well vc1 developed, well nourished, Behavior is calm, cooperative, appropriate for age. Pain: Denies pain. Neuro: Level of Consciousness is awake, alert, obeys commands, Oriented to person, place, time, situation, Appropriate for age. Cardiovascular: Capillary refill < 3 seconds Patient's skin is warm and dry. Rhythm is sinus rhythm Chest pain is denied. Respiratory: Reports shortness of breath at rest on exertion Airway is patent Respiratory effort is even, unlabored, Breath sounds are clear bilaterally. GI: No deficits noted. No signs and/or symptoms were reported involving the gastrointestinal system. Abdomen is flat, non-distended, Bowel sounds present X 4 quads. Abd is soft and non tender. : No deficits noted. No signs and/or symptoms were reported regarding the genitourinary system. EENT: No deficits noted. No signs and/or symptoms were reported regarding the EENT system. Derm: No signs and/or symptoms reported regarding the dermatologic system. Skin is intact, is healthy with good turgor, Skin is dry, Skin is pink, warm \T\ dry. Skin temperature is warm. Musculoskeletal: No deficits noted. No signs and/or symptoms reported regarding the musculoskeletal system. 21:04 General: Pt leans back, yawns and closes her eyes, VTACH on monitor for a run of 15 vc1 beats. No complaint of chest pain. Provider notified, repeat EKG shows atrial fibrillation.. 22:31 General: Pt cleaned of incontinence. Pt remains on continuous monitoring. No further kd3 requests at this time. . 23:00 Reassessment: Patient and/or family updated on plan of care and expected duration. Pain vc1 level reassessed. Patient is alert, oriented x 3, equal unlabored respirations, skin warm/dry/pink. Patient states feeling better. Patient states symptoms have improved. 11/07 00:55 Reassessment: Patient appears in no apparent distress at this time. No changes from vc1 previously documented assessment. Patient and/or family updated on plan of care and expected duration. Pain level reassessed. Patient is alert, oriented x 3, equal unlabored respirations, skin warm/dry/pink. Vital Signs: 11/06 17:48 BP 144 / 80; Pulse 61; Resp 18 S; Temp 97.9(TE); Pulse Ox 94% on R/A; Weight 72.57 kg as6 (R); Height 5 ft. 5 in. (R); Pain 0/10; 18:43 BP 155 / 85; Pulse 58; Resp 19; Pulse Ox 89% on R/A; ld1 20:30 BP 151 / 69; Pulse 82; Resp 19; Pulse Ox 90% on R/A; vc1 22:00 BP 142 / 90; Pulse 77; Resp 17; Pulse Ox 90% ; vc1 23:00 BP 145 / 76; Pulse 83; Resp 18; Pulse Ox 94% on 2 lpm NC; vc1 17:48 Body Mass Index 26.63 (72.57 kg, 165.1 cm) as6 17:48 Pain Scale: Adult as6 ED Course: 17:48 Patient arrived in ED. as6 17:50 Triage completed. as6 17:50 Jose Mckeon PA is PHCP. cp 17:50 Bandar Boyd DO is Attending Physician. cp 17:51 Arm band placed on. as6 18:22 XRAY Chest (1 view) In Process Unspecified. EDMS 18:43 Patient has correct armband on for positive identification. Placed in gown. Bed in low ld1 position. Call light in reach. Side rails up X2. detailer furniture on. Pulse ox on. NIBP on. Door closed. Noise minimized. Warm blanket given. 18:43 No provider procedures requiring assistance completed. ld1 18:44 Claudia Boyd, RN is Primary Nurse. ld1 19:33 Basic Metabolic Panel Sent. vk 19:33 CBC with Diff Sent. vk 19:33 LFT's Sent. vk 19:33 NT PRO-BNP Sent. vk 19:33 Magnesium Sent. vk 19:33 PT-INR Sent. vk 19:33 Troponin HS Sent. vk 19:33 Urinalysis W/Microscopic Sent. vk 19:33 Inserted saline lock: 20 gauge in right antecubital area, using aseptic technique. vk 19:34 Initial lab(s) drawn, by me, sent to lab. vk 19:34 EKG done, by ED staff. vk 20:10 CT Chest For PE Angio In Process Unspecified. EDMS 21:58 Notified Nurse Practitioner and/or Physician Cool Roofing Installer of paged on-call alterations workroom clerk. kmf 22:44 Notified Nurse Practitioner and/or Physician [employer] Installer of paged cardiology again. kmf 22:52 Denilson Madsen MD is Hospitalizing Provider. cp 23:46 Ant Li MD is Hospitalizing Provider. cp Administered Medications: 19:14 CANCELLED (Physician Discretion): DuoNeb Nebulize (2.5 mg - 0.5 mg) 3 ml Nebulizer once cp 19:33 Drug: DuoNeb Nebulize (2.5 mg - 0.5 mg) 3 ml Nebulizer once Route: Nebulizer; vc1 20:50 CANCELLED (Physician Discretion): [id number] mg IVP once; give over 2 minutes cp 20:58 CANCELLED (Physician Discretion): [id number] mg IVP once; give over 2 minutes cp 20:59 Drug: Furosemide IVP 20 mg IVP once; give over 2 minutes Route: IVP; Infused Over: 2 vc1 mins; Site: right antecubital; 22:15 Drug: amiodarone IVPB 150 mg 100 ml IVPB once over 10 mins; (mix in D5W) Volume: 100 vc1 ml; Route: IVPB; Infused Over: 10 mins; Site: right antecubital; 22:47 Drug: amiodarone IVPB 900 mg, D5W IV 500 ml IVPB at 1 mg/min continuous; for 6 hrs, vc1 then change to 0.5 mg/min Route: IVPB; Rate: 1 mg/min; Site: right antecubital; 11/07 00:37 Drug: Ativan IVP 0.5 mg IVP once Route: IVP; Site: right antecubital; vc1 00:38 Drug: Enoxaparin Sub-Q 1 mg/kg Sub-Q once Route: Sub-Q; Site: right lower abdomen; vc1 00:38 Drug: Rocephin IV 1 grams IV at calculated rate once; Given slow IV push per pharmacy vc1 instructions Route: IV; Rate: calculated rate; Site: right antecubital; Medication: 11/06 20:30 VIS not applicable for this client. vc1 Outcome: 22:53 Decision to Hospitalize by Provider. ollie 11/07 01:17 Patient left the ED. kd3 Signatures: Dispatcher [employer] EDMS Jose Mckeon PA PA Claudia Boyd RN RN ld1 Yoel Gandara RN RN as6 Itzel Ivan RN RN kd3 Amber Bennett RN RN vc1 No Little Vivian vk
--- NOTE | 2023-11-07 22:53 | EDPHYS ---
Physician Documentation [facility] Name: Christal Krishnamurthy Age: 78 yrs Sex: Female : 1945 Arrival Date: 11/07/2023 Time: 17:40 Bed 2 Private MD: ED Physician Bandar Boyd HPI: 11/06 18:10 This 78 yrs old Female presents to ER via Wheelchair with complaints of Shortness Of cp Breath. 18:10 The patient has shortness of breath with light activity. Onset: The symptoms/episode cp began/occurred gradually, and became worse 1 week(s) ago. Duration: The symptoms are continuous, and are steadily getting worse. The patient's shortness of breath is aggravated by light activity, is alleviated by rest. Associated signs and symptoms: Pertinent negatives: chest pain, productive cough, diaphoresis, fever, vomiting. Severity of symptoms: in the emergency department the symptoms are unchanged despite home interventions. Historical: - Allergies: 17:50 wine; as6 17:50 Wheat/glutens; as6 17:50 Nexium; as6 17:50 Levaquin; as6 17:50 Eggs; as6 17:50 Cyanoacrylates; as6 17:50 Antihistamine with decongestant; as6 17:50 Amoxicillin; as6 17:50 Latex; as6 17:50 PENICILLINS; as6 - PMHx: 17:50 Asthma; as6 17:52 Congestive heart failure; as6 - PSHx: 17:50 back; heart bypass; as6 - Immunization history:: Adult Immunizations up to date. - Infectious Disease History:: Denies. - Social history:: Smoking status: Patient/guardian denies using tobacco, but has a distant history of tobacco abuse. ROS: 18:15 Constitutional: Negative for body aches, chills, fever, poor PO intake, cp 18:15 Eyes: Negative for injury, pain, redness, and discharge, cp 18:15 ENT: Negative for drainage from ear(s), ear pain, sore throat, difficulty swallowing, difficulty handling secretions, 18:15 Cardiovascular: Negative for chest pain, edema, palpitations, 18:15 Respiratory: Positive for shortness of breath, on exertion. Negative for wheezing, 18:15 Abdomen/GI: Negative for abdominal pain, vomiting, diarrhea, constipation, 18:15 Back: Negative for pain at rest, pain with movement, 18:15 : Negative for urinary symptoms, 18:15 Skin: Negative for rash, 18:15 Neuro: Negative for altered mental status, headache, numbness, syncope, weakness, 18:15 All other systems are negative, Exam: 18:20 Constitutional: The patient appears in no acute distress, alert, awake, cp non-diaphoretic, non-toxic, well developed, well nourished, 18:20 Head/Face: Normocephalic, atraumatic. cp 18:20 Eyes: Periorbital structures: appear normal, Conjunctiva: normal, no exudate, no injection, Sclera: no appreciated abnormality, Lids and lashes: appear normal, bilaterally, 18:20 ENT: External ear(s): are unremarkable, Nose: is normal, Mouth: Lips: moist, Oral mucosa: pink and intact, moist, Posterior pharynx: is normal, airway is patent, no erythema, no exudate, 18:20 Chest/axilla: Inspection: normal, Palpation: is normal, no crepitus, no tenderness, 18:20 Cardiovascular: Rate: normal, Rhythm: regular, Edema: is not appreciated, JVD: is not appreciated, 18:20 Respiratory: the patient does not display signs of respiratory distress, Respirations: normal, no use of accessory muscles, no retractions, labored breathing, is not present, Breath sounds: decreased breath sounds, that are mild, throughout, stridor, is not appreciated, wheezing: is not appreciated, 18:20 Abdomen/GI: Inspection: abdomen appears normal, Palpation: abdomen is soft and non-tender, in all quadrants, 18:20 Back: pain, is absent, ROM is normal, 18:20 Skin: cellulitis, is not appreciated, no rash present. 18:20 Neuro: Orientation: to person, place \T\ time. Mentation: is normal, Motor: moves all fours, strength is normal, Sensation: is normal, 18:45 ECG was reviewed by the Attending Physician. cp 21:14 ECG was reviewed by the Attending Physician. cp Vital Signs: 17:48 BP 144 / 80; Pulse 61; Resp 18 S; Temp 97.9(TE); Pulse Ox 94% on R/A; Weight 72.57 kg as6 (R); Height 5 ft. 5 in. (R); Pain 0/10; 18:43 BP 155 / 85; Pulse 58; Resp 19; Pulse Ox 89% on R/A; ld1 20:30 BP 151 / 69; Pulse 82; Resp 19; Pulse Ox 90% on R/A; vc1 22:00 BP 142 / 90; Pulse 77; Resp 17; Pulse Ox 90% ; vc1 23:00 BP 145 / 76; Pulse 83; Resp 18; Pulse Ox 94% on 2 lpm NC; vc1 17:48 Body Mass Index 26.63 (72.57 kg, 165.1 cm) as6 17:48 Pain Scale: Adult as6 MDM: 18:01 Patient medically screened. cp 19:00 Differential diagnosis: Anemia Bronchitis CHF exacerbation, Chronic Obstructive cp Pulmonary Disease Myocardial Infarction pneumonia, Pneumothorax pulmonary edema, Pulmonary Embolism Sepsis Unstable Angina. 22:15 Data reviewed: vital signs, nurses notes, lab test result(s), EKG, radiologic studies, cp CT scan, plain films, I have discussed the patient's presentation/case with the attending Emergency Department Physician; and as a result, I will admit patient. 22:15 Management of patient was discussed with the following: Vice President Talent Management: cardiology cp concerning short run of VTach observed by nurse. Amiodarone administered and patient to be admitted to ICU. 11/06 18:02 Order name: Basic Metabolic Panel; Complete Time: 20:37 cp 06/12 20:37 Interpretation: Normal except: BUN 24; GFR 71. cp /12 18:02 Order name: CBC with Diff; Complete Time: 20:37 cp /12 18:02 Order name: LFT's; Complete Time: 20:37 cp 06/12 20:38 Interpretation: Normal except: ALB 3.2; GLOB 4.2; A/G 0.8. cp /12 18:02 Order name: Magnesium; Complete Time: 20:37 cp 06/12 18:02 Order name: NT PRO-BNP; Complete Time: 20:37 cp 06/12 20:38 Interpretation: Abnormal: NT PRO-BNP 6201. cp /12 18:02 Order name: PT-INR; Complete Time: 20:37 cp /12 18:02 Order name: Troponin HS; Complete Time: 20:37 cp /12 18:02 Order name: SARS RAPID; Complete Time: 21:30 06 18:02 Order name: Urinalysis W/Microscopic; Complete Time: 20:37 11/06 21:47 Interpretation: Normal except: UGLUC 3+. 11/06 21:56 Order name: Lactate w/ 2H reflex if indic. 11/06 21:56 Order name: Blood Culture Adult (2) 11/07 00:30 Order name: Basic Metabolic Panel EDLA 11/07 00:30 Order name: Basic Metabolic Panel [facility] 11/07 00:30 Order name: CBC with Automated Diff [facility] 11/07 00:30 Order name: CBC with Automated Diff [facility] 11/07 00:30 Order name: NT PRO-BNP [facility] 11/07 00:30 Order name: NT PRO-BNP [facility] 11/07 00:30 Order name: Troponin High Sensitivity [facility] 11/07 00:30 Order name: Troponin High Sensitivity [facility] 11/07 00:30 Order name: Troponin High Sensitivity [facility] 11/07 00:30 Order name: Troponin High Sensitivity [facility] 11/06 18:02 Order name: XRAY Chest (1 view); Complete Time: 20:37 11/06 20:38 Interpretation: Report review. 11/06 19:14 Order name: CT Chest For PE Angio; Complete Time: 21:30 11/06 21:54 Interpretation: Report reviewed. 11/07 00:30 Order name: CONS Physician Consult [facility] 11/06 18:02 Order name: Cardiac monitoring; Complete Time: 18:43 11/06 18:02 Order name: EKG - Nurse/Tech; Complete Time: 18:43 cp 11/06 18:02 Order name: IV Saline Lock; Complete Time: 19:32 cp 11/06 18:02 Order name: Labs collected and sent; Complete Time: 19:33 cp 06 18:02 Order name: O2 Per Protocol; Complete Time: 18:35 cp 11/06 18:02 Order name: O2 Sat Monitoring; Complete Time: 18:35 cp EC:45 Rate is 60 beats/min. Rhythm is regular. ID interval is normal. QRS interval is cp prolonged at 108 msec. QT interval is normal. T waves are Inverted in lead aVL. Interpreted by me. Reviewed by me. 21:14 Rate is 70 beats/min. Rhythm is irregular. QRS interval is prolonged at 106 msec. QT cp interval is prolonged. Interpreted by me. Reviewed by me. Administered Medications: 19:14 CANCELLED (Physician Discretion): DuoNeb Nebulize (2.5 mg - 0.5 mg) 3 ml Nebulizer once cp 19:33 Drug: DuoNeb Nebulize (2.5 mg - 0.5 mg) 3 ml Nebulizer once Route: Nebulizer; vc1 20:50 CANCELLED (Physician Discretion): [id number] mg IVP once; give over 2 minutes cp 20:58 CANCELLED (Physician Discretion): mg IVP once; give over 2 minutes cp 20:59 Drug: Furosemide IVP 20 mg IVP once; give over 2 minutes Route: IVP; Infused Over: 2 vc1 mins; Site: right antecubital; 22:15 Drug: amiodarone IVPB 150 mg 100 ml IVPB once over 10 mins; (mix in D5W) Volume: 100 vc1 ml; Route: IVPB; Infused Over: 10 mins; Site: right antecubital; 22:47 Drug: amiodarone IVPB 900 mg, D5W IV 500 ml IVPB at 1 mg/min continuous; for 6 hrs, vc1 then change to 0.5 mg/min Route: IVPB; Rate: 1 mg/min; Site: right antecubital; 11/07 00:37 Drug: Ativan IVP 0.5 mg IVP once Route: IVP; Site: right antecubital; vc1 00:38 Drug: Enoxaparin Sub-Q 1 mg/kg Sub-Q once Route: Sub-Q; Site: right lower abdomen; vc1 00:38 Drug: Rocephin IV 1 grams IV at calculated rate once; Given slow IV push per pharmacy vc1 instructions Route: IV; Rate: calculated rate; Site: right antecubital; Disposition: 03:35 I agree with the assessment and plan of care. I reviewed the patient's care provided by sp4 the Advanced Practice Provider and agree with the diagnosis and treatment plan. Disposition Summary: 11/07/23 22:53 Hospitalization Ordered Notes: Hospitalization Status: Inpatient Admission cp Condition: Stable cp Problem: new cp Symptoms: have improved cp Bed/Room Type: Standard cp Location: Intensive Care Unit(11/07/23 23:02) cp Provider: Ant Li(11/07/23 23:47) cp Room Assignment: 3-(11/08/23 00:36) jb4 Diagnosis - Other pneumonia, unspecified organism cp - Unspecified atrial fibrillation cp - Dyspnea cp Forms: - Medication Reconciliation Form cp - SBAR form cp - Leadership Thank You Letter cp Signatures: Dispatcher [employer] EDMS Jose Mckeon PA PA cp Geovani Reddy, RN RN jb4 Yoel Gandara, RN RN as6 Amber Bennett RN RN vc1 Regino Page MD MD sp4 Corrections: (The following items were deleted from the chart) 11/06 18:02 18:02 Chest Single View+RAD.RAD.BRZ ordered. EDMS EDMS 19:14 18:02 DuoNeb Nebulize (2.5 mg - 0.5 mg) 3 ml Nebulizer once ordered. cp cp 20:50 20:39 Furosemide IVP 20 mg IVP once; give over 2 minutes ordered. cp cp 20:58 20:50 Furosemide IVP 40 mg IVP once; give over 2 minutes ordered. cp cp 21:56 21:56 LACTATE+C.LAB.BRZ ordered. EDMS EDMS 21:56 21:56 BLOOD CULTURE*+BA.LAB.BRZ ordered. EDMS EDMS 23:02 22:53 Telemetry/MedSurg (Inpatient) cp cp 23:02 22:53 cp cp 23:47 22:53 Denilson Madsen cp cp 11/07 00:36 11/06 23:02 cp jb4
[2023-11-07] MEDS ORDERED: LORazepam 2 MG/ML VIAL ONE (23:50)
[2023-11-07] MEDS ORDERED: CEFTRIAXONE 1000 MG/VIAL ONE (23:51)
[2023-11-07] MEDS ORDERED: ENOXAPARIN 80 MG/0.8 ML SQ ONE (23:52)
[2023-11-08] MEDS ORDERED: ALBUTEROL 2.5 MG/3 ML NEB SOL NEB PRN (00:25)
[2023-11-08] MEDS ORDERED: IPRATROPIUM BROM 0.5MG/2.5ML NEB PRN (00:25)
[2023-11-08] MEDS ORDERED: AMIODARONE HCL 900 MG in Dextrose 5%-Water 482 ML IV SCH (01:00)
[2023-11-08 02:22] VITALS: BMI 28.8
[2023-11-08] MEDS: AMIODARONE IN DEXTROSE,ISO-OSM 360 MG/200 ML BAG IV ONE (04:44)
[2023-11-08] MEDS: TADALAFIL 20 MG PO SCH (09:00)
[2023-11-08] MEDS: **PT MED**Empagliflozin [Jardiance] 10 MG Tablet PO SCH (09:00)
[2023-11-08] MEDS: FEXOFENADINE 180 MG TAB PO SCH (09:39)
[2023-11-08] MEDS: ASPIRIN EC 81 MG TAB PO SCH (09:39)
[2023-11-08] MEDS: LEVOTHYROXINE SOD 0.05 MG TABLET PO SCH (09:39)
[2023-11-08] MEDS: SACUBITRIL/VALSARTAN 24/26 MG TAB PO SCH (09:40)
[2023-11-08] MEDS: SERTRALINE HCL 50 MG TAB PO SCH (09:40)
[2023-11-08] MEDS: FUROSEMIDE 20 MG/ 2ML VIAL IV SCH (09:43)
[2023-11-08] MEDS: CEFTRIAXONE 1,000 MG in NA CHLORIDE 0.9% 50 ML IVPB SCH (09:44)
[2023-11-08 10:13] LABS: Magnesium 1.9 mg/dL (1.6-2.4)
[2023-11-08] MEDS: POTASSIUM 25 MEQ EFFERV TAB PO ONE (11:26)
[2023-11-08] MEDS: MAGNESIUM SULFATE 1 gm IVPB 1 GM/100 ML BAG IV ONE (11:26)
--- NOTE | 2023-11-08 11:35 | P.CNS ---
Date of Consult: 11/08/23 Chief Complaint: SOB History of Present Illness: Patient with PMH of CAD s/p CABG X1 in 1997, congestive heart failure and pulmonary hypertension, presented with worsening BRODERICK, bilateral lower extremities swelling that has been going on for month, denies chest pain, no palpitations, no syncope. Allergies 2-octyl cyanoacrylate [octyl 2-cyanoacrylate] Allergy (Verified 04/09/12 09:07) Anaphylaxis amoxicillin [Amoxicillin] Allergy (Verified 04/09/12 09:07) Rash esomeprazole mag [From Nexium] Allergy (Verified 04/09/12 09:02) Anaphylaxis wheat Allergy (Verified 04/09/12 09:07) Anaphylaxis Antihistamines - Alkylamine Adverse Reaction (Verified 04/09/12 09:07) states in ones with decongestants it aggrevates her heart levofloxacin [From Levaquin] Adverse Reaction (Verified 04/09/12 09:07) stomach cramps metronidazole Adverse Reaction (Verified 04/09/12 09:07) stomach cramps rosuvastatin calcium [From Crestor] Adverse Reaction (Verified 04/09/12 09:07) weakness Home Medications: Albuterol Sulfate [Albuterol Sulfate 0.083% Neb Soln] 2.5 mg IH PRN 11/08/23 Albuterol Sulfate [Proair Hfa] See Rx Instructions .ROUTE .COMPLEX PRN 11/08/23 Aspirin [Aspirin EC] 81 mg PO DAILY 11/08/23 Azelastine [Astelin 137MCG/Metered [place]] 30 sprays NS PRN 11/08/23 Bempedoic Acid [Nexletol] 180 mg 1X 11/08/23 Dupilumab [Dupixent Pen] 300 mg SQ SEECOM 11/08/23 Empagliflozin [Jardiance] 10 mg PO DAILY 11/08/23 Estrogens, Conjugated [Premarin] 1.25 mg PO 1X 11/08/23 Famotidine 20 mg PO BID 11/08/23 Fexofenadine HCl 180 mg PO DAILY 11/08/23 Levothyroxine [Synthroid] 50 mcg PO 1X 11/08/23 Montelukast [Singulair] 10 mg PO BEDTIME 11/08/23 Sacubitril/Valsartan [Entresto 24 mg-26 mg Tablet] 1 tab PO BID 11/08/23 Sertraline [Zoloft] 50 mg PO 1X 11/08/23 Tadalafil [Cialis] 20 mg PO BID 11/08/23 - Past Medical/Surgical History Diabetic: No -: OA -: DJD -: chronic low back pain -: Depression -: History of falls -: Asthma -: WINNIE -: Chronic lung disease on home 02 prn and HS -: Hyppthyroidism -: Diverticulosis -: X4 Back surgeries -: Hystertectomy -: Knee scraping of deposits Psychosocial/ Personal History: , retired, good family support, lives in a 2 story home - Social History Smoking Status: Former smoker Alcohol use: No CD- Drugs: No Caffeine use: Yes Place of Residence: Home Review of Systems 10-point ROS is otherwise unremarkable Physical Examination Temp Pulse Resp BP Pulse Ox 97.6 F 66 18 141/77 H 100 11/08/23 08:00 11/08/23 10:00 11/08/23 10:00 11/08/23 10:00 11/08/23 10:00 General: Alert, In no apparent distress HEENT: Atraumatic, PERRLA, Mucous membr. moist/pink, EOMI, Sclerae nonicteric Neck: Supple, 2+ carotid pulse no bruit, No LAD, Without JVD or thyroid abnormality Respiratory: Crackles/rales Cardiovascular: Regular rate/rhythm, Normal S1 S2, Edema Gastrointestinal: Normal bowel sounds, No tenderness Musculoskeletal: No tenderness Integumentary: No rashes Neurological: Normal gait, Normal speech, Normal tone, Normal affect Lymphatics: No axilla or inguinal lymphadenopathy Laboratory Data (last 24 hrs) 11/07/23 11/07/23 11/07/23 19:28 19:28 19:28 WBC 5.80 Hgb 13.1 Hct 39.6 Plt Count 170 PT 13.9 H INR 1.27 Sodium 137 Potassium 3.8 BUN 24 H Creatinine 0.83 Glucose 96 Magnesium 2.4 Total Bilirubin 0.4 AST 18 ALT 18 Alkaline Phosphatase 47 - Problems (1) Atrial fibrillation Current Visit: Yes Status: Acute Plan: New onset as patient denies being told that she had AF,now she is in sinus rhythm after Amiodarone load and drip. Continue Amiodarone 200 mg daily Start Xarelto 20 mg daily Echo outpatient follow up with her project reservoir engineer, she sees one in [place]. (2) Congestive heart failure Current Visit: Yes Status: Acute Plan: patient with mild volume overload, NYHA 3, stage C. Continue Lasix 20 mg IV BID Monitor input and output and correct electrolytes Continue Entresto BID can not use BB due to slow HR get Echo (3) CAD (coronary artery disease) of artery bypass graft Current Visit: Yes Status: Acute Plan: stable, no chest pain with negative troponin. continue ASA 81 mg daily
--- NOTE | 2023-11-08 12:55 | P.HP ---
Certification for Inpatient Patient admitted to: Inpatient With expected LOS: >2 Midnights Practitioner: I am a practitioner with admitting privileges, knowledge of patient current condition, hospital course, and medical plan of care. Services: Services provided to patient in accordance with Admission requirements found in Title 42 Section 412.3 of the Code of Federal Regulations Patient History Date of Service: 11/08/23 Reason for admission: SOB History of Present Illness: ESTRADA HAS HAD PULMONARY HTN FROM [facility] AGO AND HAS CONGESTIVE CARDIOMYOPATHY MANAGED BY DR. PATEL. SHE COMES WITH DYSPNEA, WAS FOUND TO HAVE A FIB. ER PA CALLED AND SAID SHE HAD V. TACH BUT DR. GARCIA DENIES THAT. SHE IS ON AMIODARONE DRIP AND HR IS LOW NOW. SHE WILL BE ON ORAL AMIO. SHE WILL GET DIURESIS FOR A DAY AND MAY GO HOME. THERE IS EARLY SIGN OF CHF. Allergies 2-octyl cyanoacrylate [octyl 2-cyanoacrylate] Allergy (Verified 04/09/12 09:07) Anaphylaxis amoxicillin [Amoxicillin] Allergy (Verified 04/09/12 09:07) Rash esomeprazole mag [From Nexium] Allergy (Verified 04/09/12 09:02) Anaphylaxis wheat Allergy (Verified 04/09/12 09:07) Anaphylaxis Antihistamines - Alkylamine Adverse Reaction (Verified 04/09/12 09:07) states in ones with decongestants it aggrevates her heart levofloxacin [From Levaquin] Adverse Reaction (Verified 04/09/12 09:07) stomach cramps metronidazole Adverse Reaction (Verified 04/09/12 09:07) stomach cramps rosuvastatin calcium [From Crestor] Adverse Reaction (Verified 04/09/12 09:07) weakness Home Medications: Albuterol Sulfate [Albuterol Sulfate 0.083% Neb Soln] 2.5 mg IH PRN 11/08/23 Albuterol Sulfate [Proair Hfa] See Rx Instructions .ROUTE .COMPLEX PRN 11/08/23 Aspirin [Aspirin EC] 81 mg PO DAILY 11/08/23 Azelastine [Astelin 137MCG/Metered [place]] 30 sprays NS PRN 11/08/23 Bempedoic Acid [Nexletol] 180 mg 1X 11/08/23 Dupilumab [Dupixent Pen] 300 mg SQ SEECOM 11/08/23 Empagliflozin [Jardiance] 10 mg PO DAILY 11/08/23 Estrogens, Conjugated [Premarin] 1.25 mg PO 1X 11/08/23 Famotidine 20 mg PO BID 11/08/23 Fexofenadine HCl 180 mg PO DAILY 11/08/23 Levothyroxine [Synthroid] 50 mcg PO 1X 11/08/23 Montelukast [Singulair] 10 mg PO BEDTIME 11/08/23 Sacubitril/Valsartan [Entresto 24 mg-26 mg Tablet] 1 tab PO BID 11/08/23 Sertraline [Zoloft] 50 mg PO 1X 11/08/23 Tadalafil [Cialis] 20 mg PO BID 11/08/23 - Past Medical/Surgical History Has patient received pneumonia vaccine in the past: Yes Diabetic: No -: OA -: DJD -: chronic low back pain -: Depression -: History of falls -: Asthma -: WINNIE -: Chronic lung disease on home 02 prn and HS -: Hyppthyroidism -: Diverticulosis -: X4 Back surgeries -: Hystertectomy -: Knee scraping of deposits Psychosocial/ Personal History: , retired, good family support, lives in a 2 story home - Social History Smoking Status: Former smoker Alcohol use: No CD- Drugs: No Caffeine use: Yes Place of Residence: Home Review of Systems 10-point ROS is otherwise unremarkable General: Weakness Physical Examination - Vital Signs Temperature: 98 F Blood Pressure: 131/81 Pulse: 60 Respirations: 14 Pulse Ox (%): 97 - Physical Exam General: Oriented x3, Mild distress HEENT: Atraumatic, PERRLA, Mucous membr. moist/pink, EOMI, Sclerae nonicteric Neck: Supple, 2+ carotid pulse no bruit, No LAD, Without JVD or thyroid abnormality Respiratory: Diminished Cardiovascular: Regular rate/rhythm, Normal S1 S2 Gastrointestinal: Normal bowel sounds, No tenderness Musculoskeletal: No tenderness Integumentary: No rashes Neurological: Normal gait, Normal speech, Normal strength at 5/5 x4 extr, Normal tone, Normal affect Lymphatics: No axilla or inguinal lymphadenopathy - Studies Laboratory Data (last 24 hrs) 11/07/23 11/07/23 11/07/23 19:28 19:28 19:28 WBC 5.80 Hgb 13.1 Hct 39.6 Plt Count 170 PT 13.9 H INR 1.27 Sodium 137 Potassium 3.8 BUN 24 H Creatinine 0.83 Glucose 96 Magnesium 2.4 Total Bilirubin 0.4 AST 18 ALT 18 Alkaline Phosphatase 47 Assessment and Plan - Problems (Diagnosis) (1) Atrial fibrillation Current Visit: Yes Status: Acute Plan: ORAL AMIODARONE ADDED XARELTO SHE MAY GO HOME IN AM I WILL BE OUT OF TOWN. SIGNED OUT TO DR. OLIVEIRA FROM AM. HE WILL DC HER. (2) Congestive heart failure Current Visit: Yes Status: Chronic Plan: GENTLE DIURESIS LAB IN AM FU WITH DR PATEL. SHE IS ADVISED TO GET LOCAL MINE SAFETY DIRECTOR BUT I AM NOT SURE IF SHE WILL. (3) Lesion of lung Current Visit: Yes Status: Acute Plan: ROUNDED , REPORTED EARLY PNEUMONIA BUT I AM NOT SURE. WILL FU. AFTER ABX. - Advance Directives Does patient have a Living Will: Yes Does patient have a Durable POA for Healthcare: Yes
[2023-11-08] MEDS: AMIODARONE HCL 900 MG in Dextrose 5%-Water 482 ML IV SCH (14:12)
[2023-11-08 16:21] LABS: Magnesium 2.5 mg/dL (1.6-2.4); Potassium 3.8 mEq/L (3.5-5.1)
[2023-11-08] MEDS: RIVAROXABAN 20 MG TABLET PO SCH (18:29)
[2023-11-08] MEDS: MONTELUKAST 10 MG TAB PO SCH (21:24)
[2023-11-08] MEDS: ACETAMINOPHEN 325 MG TABLET PO PRN (22:03)
[2023-11-08] MEDS: ROPINIROLE HCL 0.25 MG TAB PO SCH (23:02)
--- NOTE | 2023-11-09 06:53 | ECHO ---
HEIGHT: 5 ft 4 in WEIGHT: 168 lb 0 oz DATE OF STUDY: 11/08/[address]: Ernesto Bryant MD 2-DIMENSIONAL: YES M.MODE: YES DOPPLER: YES COLOR FLOW: YES TDS: PORTABLE: YES DEFINITY: BUBBLE STUDY: DIAGNOSIS: HEART FAILURE CARDIAC HISTORY: CATHERIZATION: YES SURGERY: YES PROSTHETIC VALVE: NO PACEMAKER: NO MEASUREMENTS (cm) DIASTOLIC (NORMALS) SYSTOLIC (NORMALS) IVSd 0.9 (0.6-1.2) LA Diam 3.0 (1.9-4.0) LVEF 40-45% LVIDd 5.1 (3.5-5.7) LVIDs 4.3 (2.0-3.5) %FS 16% LVPWd 1.0 (0.6-1.2) Ao Diam 3.0 (2.0-3.7) 2 DIMENSIONAL ASSESSMENT: RIGHT ATRIUM: NORMAL LEFT ATRIUM: NORMAL RIGHT VENTRICLE: NORMAL LEFT VENTRICLE: DEPRESSED EJECTION FRACTION TRICUSPID VALVE: MILD TRICUSPID REGURGITATION MITRAL VALVE: MILD MITRAL REGURGITATION PULMONIC VALVE: MODERATE PULMONIC INSUFFICIENCY AORTIC VALVE: NORMAL PERICARDIAL EFFUSION: NONE AORTIC ROOT: NORMAL LEFT VENTRICULAR WALL MOTION: MILD GLOBAL HYPOKINESIS DOPPLER/COLOR FLOW: SEE BELOW COMMENTS: 1. MILDLY DEPRESSED LEFT VENTRICULAR EJECTION FRACTION 40-45% 2. MILD GLOBAL HYPOKINESIS 3. MILD MITRAL REGURGITATION/ TRICUSPID REGURGITATION 4. MODERATE PULMONIC INSUFFICIENCY 5. MODERATE DIASTOLIC DYSFUNCTION TECHNOLOGIST: JUNIOR CÁRDENAS
[2023-11-09 07:00] LABS: Absolute Eosinophils 0.3 K/uL (0-0.5); Absolute Lymphocytes (CBC) 1.8 K/uL (0.7-4.9); Absolute Monocytes 0.6 K/uL (0.1-1.3); Absolute Neutrophil 2.8 K/uL (1.8-8.0); Basophils % 0.5 % (0-1.3); Eosinophils % 5.1 % (0-4.4); Hematocrit 41.3 % (36.0-45.0); Lymphocytes % 32.5 % (15.3-44.8); MCH 32.9 pg (27.0-35.0); MCHC 33.9 g/dL (32.0-36.0); MCV 96.9 fL (80-100); MPV 9.4 fL (7.6-11.3); Monocytes % 10.7 % (3.3-12.3); Neutrophils % 51.2 % (41.7-73.7); Nucleated Red Blood Cells % 0.1 % (0-0); Platelets 187 thou/uL (152-406); RBC Red Blood Cell Count 4.26 M/uL (3.86-4.86)
[2023-11-09 07:19] LABS: Anion Gap 8.5 mEq/L (5.0-15.0); Potassium 3.5 mEq/L (3.5-5.1)
[2023-11-09] MEDS: SERTRALINE HCL 50 MG TAB PO SCH (08:53)
[2023-11-09] MEDS: AMIODARONE HCL 200 MG TAB PO SCH (09:00)
[2023-11-09 09:07] VITALS: O2SAT 92
[2023-11-09] MEDS ORDERED: IPRATROPIUM BROM 0.5MG/2.5ML NEB PRN (11:15)
[2023-11-09] MEDS: FEXOFENADINE 180 MG TAB PO SCH (11:16)
[2023-11-09 12:15] VITALS: BP 140/82; TEMP 97.1
--- NOTE | 2023-11-09 19:35 | PN ---
Date of Progress Note: 11/09/2023 Subjective: Seen by bedside. Doing clinically well. No new complaints. Heart rate has been contro lled. Review of Systems: No chest pain, shortness of breath, orthopnea, cough, nausea, vomiting, diarrhea. All other systems reviewed, they are negative. Objective: Vital Signs: Reviewed. Head and Neck: Pupils are equal, reactive to light. Intact eye movements. No JVD. No cervical lym phadenopathy. Neck is supple. Thyroid is not enlarged. Lungs: Clear to auscultation bilaterally. No rhonchi, wheezing, or crackles. No accessory muscle u se. Heart: Regular rate and rhythm. No extra sounds. Abdomen: Soft, nontender. Bowel sounds positive. No organomegaly. No masses or hernia. No rigidi ty or rebound. Extremities: No clubbing, cyanosis. Intact pulses. Skin: No rash. No nodule. Neurologic: Alert, awake, oriented x3. No acute focal deficits appreciated. Investigation: Labs reviewed. Assessment And Recommendations: 1.Atrial fibrillation, controlled now. Continue amiodarone and Xarelto. 2.Congestive heart failure, NYHA class 2. Continue Lasix and Entresto. Follow up echo as an outpat ient. 3.Coronary artery disease. No chest pain. Continue current management. Cardiology signed off. Follow up on an outpatient basis. /BECKY Voice ID: [id number] Report ID: [id number]
--- NOTE | 2023-11-12 15:05 | EKG ---
Test Date: 2023-11-09 Test Time: 07:07:32 Service Supervisor: 33 MEASUREMENT RESULTS: Intervals: Rate: 55 CO: 190 QRSD: 110 QT: 502 QTc: 480 [place]: P: 86 CO: 190 QRS: -54 T: 170 INTERPRETIVE STATEMENTS: Sinus bradycardia with occasional premature ventricular complexes and premature atrial complexes Pulmonary disease pattern Left anterior fascicular block Nonspecific T wave abnormality Prolonged QT Abnormal ECG Compared to ECG 11/07/2023 21:09:20 Atrial premature complex(es) now present Left anterior fascicular block now present T-wave abnormality now present Atrial fibrillation no longer present ST (T wave) deviation no longer present Electronically Signed On 11-12-23 14:54:59 CDT by Eric Fagan
--- NOTE | 2023-11-12 15:09 | EKG ---
Test Date: 2023-11-07 Test Time: 21:09:20 Reference Services Head: GIUSEPPE MEASUREMENT RESULTS: Intervals: Rate: 70 MS: QRSD: 106 QT: 450 QTc: 486 [place]: P: MS: QRS: 214 T: 51 INTERPRETIVE STATEMENTS: Atrial fibrillation with premature ventricular or aberrantly conducted complexes Nonspecific ST and T wave abnormality, probably digitalis effect Prolonged QT Abnormal ECG Compared to ECG 11/07/2023 18:38:57 ST (T wave) deviation now present Sinus rhythm no longer present T-wave abnormality no longer present Electronically Signed On 11-12-23 14:56:42 CDT by Eric Fagan
--- NOTE | 2023-11-12 15:11 | EKG ---
Test Date: 2023-11-07 Test Time: 18:38:57 Fire Lieutenant Marine: Tyson CURRY MEASUREMENT RESULTS: Intervals: Rate: 60 NC: 182 QRSD: 108 QT: 484 QTc: 484 [place]: P: -3 NC: 182 QRS: 183 T: 30 INTERPRETIVE STATEMENTS: Sinus rhythm with occasional premature ventricular complexes Nonspecific T wave abnormality Prolonged QT Abnormal ECG Compared to ECG 06/24/2012 11:14:36 Ventricular premature complex(es) now present T-wave abnormality now present Prolonged QT interval now present Sinus bradycardia no longer present ST (T wave) deviation no longer present Possible ischemia no longer present Electronically Signed On 11-12-23 14:56:55 CDT by Eric Fagan
== END 2023-11-09 14:00 | disposition home or self-care (01) | DRG 308 ==
LOC: ER 17:40 → ERHOLD 11-08 00:23 → 3RD-ICU 11-08 01:02 → 4TH 11-08 15:15
PROVIDERS: ADMIT Internal Medicine; ATTEND Hospitalist
DX: I48.91 Unspecified atrial fibrillation (principal); J18.9 Pneumonia, unspecified organism; I50.9 Heart failure, unspecified; I25.10 Atherosclerotic heart disease of native coronary artery without angina pectoris; Z88.0 Allergy status to penicillin; Z88.1 Allergy status to other antibiotic agents; Z95.1 Presence of aortocoronary bypass graft; Z88.8 Allergy status to other drugs, medicaments and biological substances; Z11.52 Encounter for screening for COVID-19; Z90.49 Acquired absence of other specified parts of digestive tract; Z91.09 Other allergy status, other than to drugs and biological substances; Z91.012 Allergy to eggs; Z91.040 Latex allergy status; Z91.018 Allergy to other foods; Z87.891 Personal history of nicotine dependence
CPT/HCPCS: 36415; 71045; 71275; 80048; 80076; 81001; 83605; 83735; 83880; 84132; 84484; 85025; 85610; 87040; 87811; 93005; 93306; 94640; 96372; 96374; 96375; 99285; J0282; J0696; J1940; J7060; J7613; J7644; Q9967

== ENCOUNTER 2023-12-03 20:23 | Emergency (ER) | payer OTHER ==
--- NOTE | 2023-12-03 21:35 | RAD REPORT ---
EXAM DESCRIPTION: RAD - Chest Single View - 12/03/2023 9:28 pm CLINICAL HISTORY: weakness COMPARISON: Chest Single View dated 11/07/2023; Chest For Pe Angio dated 11/07/2023 FINDINGS: Lines: None. Lungs: No evidence of edema or pneumonia. Pleural: No significant pleural effusions or pneumothorax. Cardiac: Cardiomegaly. Mediastinum: Within normal limits. Bones: No acute fractures. Sternotomy. Other: None IMPRESSION: No acute cardiopulmonary disease.
[2023-12-03 22:11] LABS: Urine Color Light-Yellow (Yellow)
[2023-12-03 22:12] LABS: Specific Gravity 1.012 (1.005-1.030); Urine Bilirubin NEGATIVE (Negative); Urine Blood Trace (Negative); Urine Clarity Clear (Clear); Urine Glucose 3+ (Negative); Urine Ketones Negative (Negative); Urine Protein Negative (Negative); Urine Urobilinogen Normal mg/dL (0.2-1.0); Urine pH 6.5 (5.0-7.0)
[2023-12-03 22:13] LABS: Sqamous Epithelial <5 /HPF (None Seen); Urine Bacteria 20-50 /HPF (<20); Urine Culture Reflex Order NOT NEEDED; Urine Micro Reflex YN NO BILL MICROSCOPIC; Urine Nitrite Negative (Negative); Urine RBC <5 /HPF (None Seen); Urine WBC <5 /HPF (<5)
[2023-12-03 22:17] LABS: PT Prothrombin Time 38.2 SECONDS (9.4-12.5); Protime INR 3.6
[2023-12-03 22:25] LABS: Albumin 3.3 g/dL (3.4-5.0); Albumin/Globulin Ratio 0.8 (1.1-1.8); Anion Gap 8.5 mEq/L (5.0-15.0); Bilirubin Direct 0.2 mg/dL (0-0.2); Bilirubin Indirect, Calculated 0.3 mg/dL (0.2-0.8); Bilirubin Total 0.5 mg/dL (0.2-1.0); Globulin 3.9 g/dL (2.3-3.5); Magnesium 2.3 mg/dL (1.6-2.4); Potassium 3.5 mEq/L (3.5-5.1); Protein, Total 7.2 g/dL (6.4-8.2); Troponin High Sensitivity 12.2 pg/mL (<58.9)
[2023-12-03 22:36] LABS: Hematocrit 36.4 % (36.0-45.0); Hemoglobin 12.4 g/dL (12.0-15.0); MCH 32.8 pg (27.0-35.0); MCHC 34.1 g/dL (32.0-36.0); MCV 96.2 fL (80-100); MPV 9.5 fL (7.6-11.3); Platelets 159 thou/uL (152-406); RBC Red Blood Cell Count 3.78 M/uL (3.86-4.86); Red Cell Distribution Width 14.5 % (12.1-15.2)
[2023-12-03 22:38] LABS: Lymphocytes % 43.1 % (15.3-44.8); Monocytes % 13.1 % (3.3-12.3); Neutrophils % 40.7 % (41.7-73.7)
[2023-12-03 22:39] LABS: Absolute Lymphocytes (CBC) 2.4 K/uL (0.7-4.9); Absolute Monocytes 0.7 K/uL (0.1-1.3); Absolute Neutrophil 2.2 K/uL (1.8-8.0); Basophils % 0.8 % (0-1.3); Eosinophils % 2.3 % (0-4.4)
[2023-12-03 22:40] LABS: Absolute Eosinophils 0.1 K/uL (0-0.5)
[2023-12-03] MEDS ORDERED: FUROSEMIDE 20 MG/ 2ML VIAL ONE (22:56)
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
[2023-12-04 00:19] VITALS: TEMP 97.6
[2023-12-04 00:50] VITALS: BP 121/74; O2SAT 95
--- NOTE | 2023-12-05 12:14 | EKG ---
Test Date: 2023-12-03 Test Time: 21:05:49 Powder Blender: MEASUREMENT RESULTS: Intervals: Rate: 58 TN: 206 QRSD: 112 QT: 480 QTc: 471 [place]: P: 30 TN: 206 QRS: -59 T: 87 INTERPRETIVE STATEMENTS: Sinus bradycardia with occasional premature ventricular complexes Left axis deviation Nonspecific T wave abnormality Prolonged QT Abnormal ECG Compared to ECG 11/09/2023 07:07:32 Left-axis deviation now present Atrial premature complex(es) no longer present Left anterior fascicular block no longer present T-wave abnormality still present Electronically Signed On 12-05-23 12:11:10 CDT by Ernesto Bryant
== END 2023-12-04 00:11 | disposition home or self-care (01) ==
LOC: ER 20:23
DX: I50.9 Heart failure, unspecified (principal); I48.91 Unspecified atrial fibrillation; I27.20 Pulmonary hypertension, unspecified; J45.909 Unspecified asthma, uncomplicated; Z79.01 Long term (current) use of anticoagulants; Z95.1 Presence of aortocoronary bypass graft; Z88.0 Allergy status to penicillin; Z88.1 Allergy status to other antibiotic agents; Z88.5 Allergy status to narcotic agent; Z91.012 Allergy to eggs; Z91.018 Allergy to other foods; Z88.8 Allergy status to other drugs, medicaments and biological substances
CPT/HCPCS: 93005; 85025; 81001; 80048; 36415; 83735; 85610; 80076; 84484; 83880; 71045; 96374; 99285; J1940

== ENCOUNTER 2024-04-26 13:51 | Inpatient (IN) | payer OTHER ==
[2024-04-26] MEDS ORDERED: IPRATROPIUM BROM 0.5MG/2.5ML ONE (14:40)
[2024-04-26] MEDS ORDERED: AZITHROMYCIN 250 MG TAB ONE (14:41)
[2024-04-26] MEDS ORDERED: LEVALBUTEROL 1.25 MG/3 ML NEB ONE ×2 (14:41→16:52)
[2024-04-26 14:55] LABS: SARS-CoV-2 Antigen CONTROL BLUE LINE VIS/BG OK; SARS-CoV-2 Antigen Rapid Res Negative (Negative)
--- NOTE | 2024-04-26 15:45 | RAD REPORT ---
EXAM: Chest Pa And Lat (2 Views) HISTORY: COUGH COMPARISON: 12/03/2023 FINDINGS: LUNGS/PLEURA: The lungs are clear. No pleural effusions or pneumothorax. No pulmonary edema. MEDIASTINUM: The mediastinal silhouette is within normal limits. CARDIAC: Similar cardiomegaly. UPPER ABDOMEN: No significant abnormality. BONES: No acute fracture. Sternotomy LINES/TUBES/OTHER: N/A IMPRESSION: No evidence of acute cardiopulmonary disease.
[2024-04-26] MEDS ORDERED: FUROSEMIDE 20 MG/ 2ML VIAL ONE (16:52)
[2024-04-26] MEDS ORDERED: Magnesium Sulfate 2gm IVPB 2 G/50 ML BAG IV ONE (16:52)
[2024-04-26] MEDS ORDERED: CEFTRIAXONE 1000 MG/VIAL ONE (16:52)
[2024-04-26] MEDS ORDERED: METHYLPREDNISOLONE 125 MG INJ ONE (16:52)
[2024-04-26 16:55] LABS: Absolute Lymphocytes (CBC) 2.1 K/uL (0.7-4.9); Absolute Monocytes 0.7 K/uL (0.1-1.3); Absolute Neutrophil 2.8 K/uL (1.8-8.0); Basophils % 0.5 % (0-1.3); Eosinophils % 0.5 % (0-4.4); Hemoglobin 12.5 g/dL (12.0-15.0); Lymphocytes % 36.7 % (15.3-44.8); MCH 33.5 pg (27.0-35.0); MCHC 33.7 g/dL (32.0-36.0); MCV 99.5 fL (80-100); MPV 9.4 fL (7.6-11.3); Monocytes % 11.9 % (3.3-12.3); Neutrophils % 50.4 % (41.7-73.7); Platelets 149 thou/uL (152-406); RBC Red Blood Cell Count 3.72 M/uL (3.86-4.86); Red Cell Distribution Width 14.4 % (12.1-15.2)
[2024-04-26 17:21] LABS: Albumin 3.4 g/dL (3.4-5.0); Albumin/Globulin Ratio 0.9 (1.1-1.8); Anion Gap 7.2 mEq/L (5.0-15.0); Bilirubin Direct 0.2 mg/dL (0-0.2); Bilirubin Indirect, Calculated 0.2 mg/dL (0.2-0.8); Bilirubin Total 0.4 mg/dL (0.2-1.0); Globulin 3.9 g/dL (2.3-3.5); Magnesium 2.5 mg/dL (1.6-2.4); Potassium 3.2 mEq/L (3.5-5.1); Protein, Total 7.3 g/dL (6.4-8.2); Troponin High Sensitivity 11.2 pg/mL (<58.9)
[2024-04-26 17:25] LABS: PT Prothrombin Time 38.4 SECONDS (9.4-12.5); Protime INR 3.56
[2024-04-26] MEDS ORDERED: FAMOTIDINE 20 MG/2 ML VIAL IV ONE (17:41)
--- NOTE | 2024-04-26 17:46 | EDPHYS ---
Physician Documentation [facility] Name: Christal Krishnamurthy Age: 78 yrs Sex: Female : 1945 Arrival Date: 04/26/2024 Time: 13:51 Bed 14 Private MD: ED Physician Jose Aguilar HPI: 04/26 15:50 This 78 yrs old Female presents to ER via Ambulatory with complaints of Flu ana Symptoms, Congestion. 15:50 The patient has shortness of breath at rest, with light activity. Onset: The ana symptoms/episode began/occurred 3 day(s) ago. Duration: The symptoms are continuous, and are steadily getting worse. The patient's shortness of breath has no apparent modifying factors. The patient or guardian reports cough, that is constant, difficulty breathing, flu symptoms, arthralgias, low-grade fever, myalgias. Modifying factors: The symptoms are alleviated by changing position, elevating head, remaining still, the symptoms are aggravated by activity, cold environment, lying flat, talking. Associated signs and symptoms: Pertinent positives: non-productive cough. Severity of symptoms: At their worst the symptoms were moderate in the emergency department the symptoms are unchanged. Associated signs and symptoms: Pertinent positives: fever, rhinorrhea, sore throat. Historical: - Allergies: 14:24 Adhesives; ss 14:24 Amoxicillin; ss 14:24 Antihistamine with decongestant; ss 14:24 Cyanoacrylates; ss 14:24 Eggs; ss 14:24 Levaquin; ss 14:24 Nexium; ss 14:24 PENICILLINS; ss 14:24 Wheat/glutens; ss 14:24 wine; ss - PMHx: 14:24 Asthma; Congestive heart failure; pulmonary HTN (Congestive heart fa); ss - PSHx: 14:24 back; heart bypass; ss - Immunization history:: Client reports receiving the 2nd dose of the Covid vaccine. - Infectious Disease History:: Denies. - Social history:: Smoking status: Patient/guardian denies using tobacco, but has a distant history of tobacco abuse. - Family history:: not pertinent. ROS: 15:50 Constitutional: Negative for fever, chills, and weight loss, Eyes: Negative for injury, ana pain, redness, and discharge, ENT: Negative for injury, pain, and discharge, Neck: Negative for injury, pain, and swelling, Cardiovascular: Negative for chest pain, palpitations, and edema, Abdomen/GI: Negative for abdominal pain, nausea, vomiting, diarrhea, and constipation, Back: Negative for injury and pain, : Negative for injury, bleeding, discharge, and swelling, MS/Extremity: Negative for injury and deformity, Skin: Negative for injury, rash, and discoloration, Neuro: Negative for headache, weakness, numbness, tingling, and seizure, Psych: Negative for depression, anxiety, suicide ideation, homicidal ideation, and hallucinations, Allergy/Immunology: Negative for hives, rash, and allergies, Endocrine: Negative for neck swelling, polydipsia, polyuria, polyphagia, and marked weight changes, 15:50 Respiratory: Positive for cough, "sounds productive", shortness of breath, at rest. wheezing, inspiratory, expiratory, 15:50 MS/extremity: Negative for acute changes, swelling, tenderness, Exam: 15:50 Constitutional: This is a well developed, well nourished patient who is awake, alert, ana and in no acute distress. Head/Face: Normocephalic, atraumatic. Eyes: Pupils equal round and reactive to light, extra-ocular motions intact. Lids and lashes normal. Conjunctiva and sclera are non-icteric and not injected. Cornea within normal limits. Periorbital areas with no swelling, redness, or edema. ENT: Nares patent. No nasal discharge, no septal abnormalities noted. Tympanic membranes are normal and external auditory canals are clear. Oropharynx with no redness, swelling, or masses, exudates, or evidence of obstruction, uvula midline. Mucous membranes moist. Neck: Trachea midline, no thyromegaly or masses palpated, and no cervical lymphadenopathy. Supple, full range of motion without nuchal rigidity, or vertebral point tenderness. No Meningismus. Chest/axilla: Normal chest wall appearance and motion. Nontender with no deformity. No lesions are appreciated. Cardiovascular: Regular rate and rhythm with a normal S1 and S2. No gallops, murmurs, or rubs. Normal PMI, no JVD. No pulse deficits. Abdomen/GI: Soft, non-tender, with normal bowel sounds. No distension or tympany. No guarding or rebound. No evidence of tenderness throughout. Back: No spinal tenderness. No costovertebral tenderness. Full range of motion. Female : Normal external genitalia. Skin: Warm, dry with normal turgor. Normal color with no rashes, no lesions, and no evidence of cellulitis. MS/ Extremity: Pulses equal, no cyanosis. Neurovascular intact. Full, normal range of motion., bilateral aka Neuro: Awake and alert, GCS 15, oriented to person, place, time, and situation. Cranial nerves II-XII grossly intact. Motor strength 5/5 in all extremities. Sensory grossly intact. Cerebellar exam normal. Normal gait. Psych: Awake, alert, with orientation to person, place and time. Behavior, mood, and affect are within normal limits. 15:50 ECG was reviewed by the Attending Physician. 15:50 Respiratory: mild respiratory distress is noted, Respirations: normal, Breath sounds: decreased breath sounds, that are moderate, are scattered, are located in both bases, rhonchi, that are moderate, are scattered, stridor, is not appreciated, + upper airway congestion. wheezing: inspiratory expiratory is heard diffusely, Respiratory rate: 22 15:50 Musculoskeletal/extremity: Extremities: all appear grossly normal, with no appreciated pain with palpation, ROM: full active range of motion, full passive range of motion, limited active range of motion, limited passive range of motion, Circulation is intact in all extremities. Sensation intact. Compartment Syndrome exam of affected extremity: is normal. Weight bearing: able to fully bear weight, DVT Exam: No signs of deep vein thrombosis. no pain, no swelling, no tenderness, negative Homans' sign noted on exam, no appreciated bluish discoloration, no erythema, no increased warmth, Vital Signs: 14:22 BP 101 / 73; Pulse 64; Resp 17; Temp 98(TE); Pulse Ox 95% on R/A; Weight 73.03 kg; ss Height 5 ft. 4 in. ; Pain 0/10; 16:31 BP 149 / 102; Pulse 52; Pulse Ox 98% on R/A; MAP 115 mmHg; Pain 0/10; tm6 19:00 BP 142 / 73; Pulse 53; Resp 18; Pulse Ox 98% ; vc1 20:30 BP 142 / 73; Pulse 53; Resp 18; Pulse Ox 95% ; vc1 14:22 Body Mass Index 27.64 (73.03 kg, 162.56 cm) ss 14:22 Pain Scale: Adult ss 16:31 Pain Scale: Adult tm6 Lluvia Coma Score: 15:50 Eye Response: spontaneous(4). Motor Response: obeys commands(6). Verbal Response: ana oriented(5). Total: 15. MDM: 13:57 Medical Screening Exam initiated ana 14:39 Medical Screening Exam initiated ana 15:54 Differential diagnosis: Anemia Anxiety Reaction asthma, Bronchitis CHF exacerbation, ana Chronic Obstructive Pulmonary Disease obstructed airway, tracheal injury, bronchitis, flu, URI, Myocardial Infarction pneumonia, Pneumothorax pulmonary edema, Pulmonary Embolism reactive airway disease, Sepsis Unstable Angina. Antibiotic administration: Rocephin and Zithromax given. Immunization status: Pneumococcal vaccine: within last 5 years. Influenza vaccine: within last 5 years. Data reviewed: vital signs, nurses notes, lab test result(s), EKG, radiologic studies, plain films. Consideration of Admission/Observation Patient was admitted/placed on observation. Escalation of care including admission/observation considered. I considered the following discharge prescriptions or medication management in the emergency department Medications were administered in the Emergency Department. See MAR. Independent interpretation of the following test(s) in the Emergency Department EKG: See my EKG interpretation above. Test considered but Not performed: Ultrasound NO 2 D ECHO. Historians other than the Patient: PT WELL INFORMED. Care significantly affected by the following chronic conditions: Hypertension, Congestive Heart Failure, ASTHMA. Counseling: I had a detailed discussion with the patient and/or guardian regarding the historical points, exam findings, and any diagnostic results supporting the discharge/admit diagnosis, lab results, radiology results, the need for further work-up and treatment in the hospital. 04/26 13:58 Order name: Flu; Complete Time: 15:50 [facility] 04/26 13:58 Order name: SARS RAPID; Complete Time: 15:50 ana 04/26 14:58 Order name: Basic Metabolic Panel; Complete Time: 17:26 ana 04/26 14:58 Order name: CBC with Diff; Complete Time: 17: ana 04/26 14:58 Order name: LFT's; Complete Time: 17:26 04/26 14:58 Order name: Magnesium; Complete Time: 17:26 04/26 14:58 Order name: NT PRO-BNP; Complete Time: 17:26 ana 04/26 14:58 Order name: PT-INR; Complete Time: 17: [facility] 04/26 14:58 Order name: Troponin HS; Complete Time: 17:26 [facility] 04/26 14:58 Order name: Blood Culture Adult (2) [facility] 04/26 20:24 Order name: Urinalysis w/ reflexes [facility] 04/26 20:25 Order name: CBC with Automated Diff [facility] 04/26 20:25 Order name: Comprehensive Metabolic Panel [facility] 04/26 20:25 Order name: Magnesium [facility] 04/26 20:25 Order name: NT PRO-BNP [facility] 04/26 20:25 Order name: Phosphorus [facility] 04/26 20:25 Order name: Thyroid Stimulating Hormone [facility] 04/26 13:58 Order name: Chest Pa And Lat (2 Views) XRAY; Complete Time: 15:50 [facility] 04/26 17:33 Order name: CT Chest For PE Angio; Complete Time: 20:07 [facility] 04/26 20:24 Order name: CONS Physician Consult [facility] 04/26 20:25 Order name: Respiratory Therapy Consult [facility] 04/26 14:58 Order name: Cardiac monitoring; Complete Time: 16:31 [facility] 04/26 14:58 Order name: EKG - Nurse/Tech; Complete Time: 16:31 [facility] 04/26 14:58 Order name: IV Saline Lock; Complete Time: 16:46 [facility] 04/26 14:58 Order name: Labs collected and sent; Complete Time: 16:46 [facility] 04/26 14:58 Order name: O2 Per Protocol; Complete Time: 16:31 [facility] 04/26 14:58 Order name: O2 Sat Monitoring; Complete Time: 16:31 [facility] Administered Medications: 14:46 Drug: AZITHromycin PO 500 mg PO once Route: PO; tm6 14:46 Drug: Levalbuterol Inhalation 1.25 mg Inhalation once Route: Inhalation; tm6 18:51 Follow up: Response: No adverse reaction tm6 14:46 Drug: Ipratropium Inhalation Aerosol 0.5 mg Inhalation once Route: Inhalation; tm6 18:51 Follow up: Response: No adverse reaction tm6 17:14 Drug: MethylPrednisoLONE IVP 125 mg IVP once Route: IVP; Site: right antecubital; tm6 18:50 Follow up: Response: No adverse reaction tm6 17:14 Drug: Furosemide IVP 20 mg IVP once; give over 2 minutes Route: IVP; Site: right tm6 antecubital; 18:50 Follow up: Response: No adverse reaction tm6 17:14 Drug: Rocephin IV 1 grams IV at per protocol once; Given slow IV push per pharmacy tm6 instructions Route: IV; Rate: per protocol; Site: right antecubital; 18:51 Follow up: Response: No adverse reaction; IV Status: Completed infusion; IV Intake: [id number] 17:14 Drug: Levalbuterol Inhalation 1.25 mg Inhalation once Route: Inhalation; tm6 18:51 Follow up: Response: No adverse reaction tm6 17:14 Drug: Magnesium Sulfate IVPB 2 grams IVPB once over 2 hrs Route: IVPB; Infused Over: 2 tm6 hrs; Site: right antecubital; 18:52 Follow up: Response: No adverse reaction; IV Status: Completed infusion; IV Intake: [id number] 17:52 Drug: Famotidine IVP 20 mg IVP once; dilute with 10 mL 0.9% NaCl; give over 2 minutes tm6 Route: IVP; Site: right antecubital; 18:52 Follow up: Response: No adverse reaction tm6 18:50 Drug: Potassium PO Effervescent Tablet 25 mEq PO once; dissolve in 4 ounces of water or tm6 juice Route: PO; 18:50 Drug: Mucomyst - Acetylcysteine PO 600 mg PO once Route: PO; tm6 Disposition Summary: 04/26/24 17:46 Hospitalization Ordered Notes: Hospitalization Status: Observation ana Provider: Abdoulaye Hernandez cha Location: Telemetry/MedSurg (Inpatient) ana Condition: Fair ana Problem: new ana Symptoms: have improved ana Bed/Room Type: Standard ana Room Assignment: 228(04/26/24 21:49) lg3 Diagnosis - Dyspnea ana - Acute upper respiratory infection, unspecified ana - Cardiomegaly ana - Essential (primary) hypertension ana - Primary pulmonary hypertension ana - Hypokalemia ana Forms: - Medication Reconciliation Form ana - SBAR form ana - Leadership Thank You Letter ana Signatures: Dispatcher [employer] Jose Sher MD MD cha Blanchard, Shelby, RN RN Celeste Burr RN RN lg3 Kate Ordoñez RN RN tm6 Corrections: (The following items were deleted from the chart) 13:59 13:59 Influenza Screen (A \\T\\ B)+BA.LAB.BRZ ordered. EDMS EDMS 13:59 13:59 SARS-COV-2 Antigen Rapid+I.LAB.BRZ ordered. EDMS EDMS 13:59 13:59 Chest Pa And Lat (2 Views)+RAD.RAD.BRZ ordered. EDMS EDMS 14:58 14:58 BASIC METABOLIC PANEL+C.LAB.BRZ ordered. EDMS EDMS 14:58 14:58 CBC+H.LAB.BRZ ordered. EDMS EDMS 14:58 14:58 HEPATIC FUNCTION+C.LAB.BRZ ordered. EDMS EDMS 14:58 14:58 MAGNESIUM+C.LAB.BRZ ordered. EDMS EDMS 14:58 14:58 PROBNP+C.LAB.BRZ ordered. EDMS EDMS 14:58 14:58 PROTIME (+INR)+COAG.LAB.BRZ ordered. EDMS EDMS 14:58 14:58 Troponin High Sensitivity+C.LAB.BRZ ordered. EDMS EDMS 14:58 14:58 BLOOD CULTURE*+BA.LAB.BRZ ordered. EDMS EDMS 21:49 17:46 ana lg3
--- NOTE | 2024-04-26 17:46 | ER ---
Nurse's Notes [facility] Name: Christal Krishnamurthy Age: 78 yrs Sex: Female : 1945 Arrival Date: 04/26/2024 Time: 13:51 Bed 14 Private MD: Diagnosis: Dyspnea;Acute upper respiratory infection, unspecified;Cardiomegaly;Essential (primary) hypertension;Primary pulmonary hypertension;Hypokalemia Presentation: 04/26 14:22 Chief complaint: Patient states: scratchy throat, itchy eyes and cough that has been ss getting worse over the past week. Coronavirus screen: Client denies travel out of the [place] in the last 14 days. Ebola Screen: Patient denies exposure to infectious person. Patient denies travel to an Ebola-affected area in the 21 days before illness onset. Initial Sepsis Screen: Does the patient meet any 2 criteria? No. Patient's initial sepsis screen is negative. Does the patient have a suspected source of infection? No. Patient's initial sepsis screen is negative. Risk Assessment: Do you want to hurt yourself or someone else? Patient reports no desire to harm self or others. Onset of symptoms was April 19, 2024. 14:22 Method Of Arrival: Ambulatory ss 14:22 Acuity: ARETHA 3 ss Historical: - Allergies: 14:24 Adhesives; ss 14:24 Amoxicillin; ss 14:24 Antihistamine with decongestant; ss 14:24 Cyanoacrylates; ss 14:24 Eggs; ss 14:24 Levaquin; ss 14:24 Nexium; ss 14:24 PENICILLINS; ss 14:24 Wheat/glutens; ss 14:24 wine; ss - PMHx: 14:24 Asthma; Congestive heart failure; pulmonary HTN (Congestive heart fa); ss - PSHx: 14:24 back; heart bypass; ss - Immunization history:: Client reports receiving the 2nd dose of the Covid vaccine. - Infectious Disease History:: Denies. - Social history:: Smoking status: Patient/guardian denies using tobacco, but has a distant history of tobacco abuse. - Family history:: not pertinent. Screenin:46 [facility] ED Fall Risk Assessment (Adult) History of falling in the last 3 months, tm6 including since admission No falls in past 3 months (0 pts) Confusion or Disorientation No (0 pts) Intoxicated or Sedated No (0 pts) Impaired Gait No (0 pts) Mobility Assist Device Used No (0 pt) Altered Elimination No (0 pt) Score/Fall Risk Level 0 - 2 = Low Risk Oriented to surroundings, Maintained a safe environment, Educated pt \T\ family on fall prevention, incl call for assistance when getting out of bed. Abuse screen: Denies threats or abuse. Denies injuries from another. Nutritional screening: No deficits noted. Tuberculosis screening: No symptoms or risk factors identified. Assessment: 14:46 General: Appears in no apparent distress. Behavior is calm, cooperative. Pain: Denies tm6 pain. Neuro: Level of Consciousness is awake, alert, obeys commands, Oriented to person, place, time, situation. Cardiovascular: Patient's skin is warm and dry. Respiratory: Reports cough that is hacking, persistent since x1 week Airway is patent Respiratory effort is even, unlabored, Respiratory pattern is regular, symmetrical, Breath sounds are coarse. GI: No signs and/or symptoms were reported involving the gastrointestinal system. Abdomen is flat, non-distended. : No signs and/or symptoms were reported regarding the genitourinary system. EENT: Reports itchy eyes. Derm: No signs and/or symptoms reported regarding the dermatologic system. Musculoskeletal: No signs and/or symptoms reported regarding the musculoskeletal system. 16:32 Reassessment: Patient and/or family updated on plan of care and expected duration. Pain tm6 level reassessed. Patient is alert, oriented x 3, equal unlabored respirations, skin warm/dry/pink. 18:53 Reassessment: Patient and/or family updated on plan of care and expected duration. Pain tm6 level reassessed. Patient is alert, oriented x 3, equal unlabored respirations, skin warm/dry/pink. Vital Signs: 14:22 BP 101 / 73; Pulse 64; Resp 17; Temp 98(TE); Pulse Ox 95% on R/A; Weight 73.03 kg; ss Height 5 ft. 4 in. ; Pain 0/10; 16:31 BP 149 / 102; Pulse 52; Pulse Ox 98% on R/A; MAP 115 mmHg; Pain 0/10; tm6 19:00 BP 142 / 73; Pulse 53; Resp 18; Pulse Ox 98% ; vc1 20:30 BP 142 / 73; Pulse 53; Resp 18; Pulse Ox 95% ; vc1 14:22 Body Mass Index 27.64 (73.03 kg, 162.56 cm) ss 14:22 Pain Scale: Adult ss 16:31 Pain Scale: Adult tm6 Hulbert Coma Score: 15:50 Eye Response: spontaneous(4). Motor Response: obeys commands(6). Verbal Response: ana oriented(5). Total: 15. ED Course: 13:55 Patient arrived in ED. im 13:57 Jose Aguilar MD is Attending Physician. ana 14:24 Triage completed. ss 14:24 Arm band placed on right wrist. ss 14:38 SARS RAPID Sent. ss 14:38 Flu Sent. ss 14:46 Patient has correct armband on for positive identification. Provided Education on: plan tm6 of care. 15:19 Kate Ordoñez, RN is Primary Nurse. tm6 15:38 Chest Pa And Lat (2 Views) XRAY In Process Unspecified. EDMS 16:31 EKG done, by ED staff, reviewed by Jose Aguilar MD. tm6 16:46 Blood Culture Adult (2) Sent. tm6 16:46 Basic Metabolic Panel Sent. tm6 16:46 CBC with Diff Sent. tm6 16:46 LFT's Sent. tm6 16:46 Magnesium Sent. tm6 16:46 NT PRO-BNP Sent. tm6 16:46 PT-INR Sent. tm6 16:46 Troponin HS Sent. tm6 16:46 Inserted saline lock: 20 gauge in right antecubital area, using aseptic technique. tm6 Blood collected. Flushed with 10 mL NS. 17:38 Abdoulaye Hernandez MD is Hospitalizing Provider. ana 18:10 CT Chest For PE Angio In Process Unspecified. EDMS Administered Medications: 14:46 Drug: AZITHromycin PO 500 mg PO once Route: PO; tm6 14:46 Drug: Levalbuterol Inhalation 1.25 mg Inhalation once Route: Inhalation; tm6 18:51 Follow up: Response: No adverse reaction tm6 14:46 Drug: Ipratropium Inhalation Aerosol 0.5 mg Inhalation once Route: Inhalation; tm6 18:51 Follow up: Response: No adverse reaction tm6 17:14 Drug: MethylPrednisoLONE IVP 125 mg IVP once Route: IVP; Site: right antecubital; tm6 18:50 Follow up: Response: No adverse reaction tm6 17:14 Drug: Furosemide IVP 20 mg IVP once; give over 2 minutes Route: IVP; Site: right tm6 antecubital; 18:50 Follow up: Response: No adverse reaction tm6 17:14 Drug: Rocephin IV 1 grams IV at per protocol once; Given slow IV push per pharmacy tm6 instructions Route: IV; Rate: per protocol; Site: right antecubital; 18:51 Follow up: Response: No adverse reaction; IV Status: Completed infusion; IV Intake: [id number] 17:14 Drug: Levalbuterol Inhalation 1.25 mg Inhalation once Route: Inhalation; tm6 18:51 Follow up: Response: No adverse reaction tm6 17:14 Drug: Magnesium Sulfate IVPB 2 grams IVPB once over 2 hrs Route: IVPB; Infused Over: 2 tm6 hrs; Site: right antecubital; 18:52 Follow up: Response: No adverse reaction; IV Status: Completed infusion; IV Intake: [id number] 17:52 Drug: Famotidine IVP 20 mg IVP once; dilute with 10 mL 0.9% NaCl; give over 2 minutes tm6 Route: IVP; Site: right antecubital; 18:52 Follow up: Response: No adverse reaction tm6 18:50 Drug: Potassium PO Effervescent Tablet 25 mEq PO once; dissolve in 4 ounces of water or tm6 juice Route: PO; 18:50 Drug: Mucomyst - Acetylcysteine PO 600 mg PO once Route: PO; tm6 Medication: 14:46 VIS not applicable for this client. tm6 Intake: 18:51 IV: 10ml; Total: 10ml. tm6 18:52 IV: 50ml; Total: 60ml. tm6 Outcome: 17:46 Decision to Hospitalize by Provider. ana 23:11 Patient left the ED. lg3 Signatures: Dispatcher [employer] EDJose Muñiz MD MD cha Blanchard, Shelby, RN RN ss Able, Lacie, RN RN lg3 Amber Bennett RN RN vc1 Christy Feng Tawney, RN RN tm6
[2024-04-26] MEDS ORDERED: ACETYLCYST 6,000 MG/30 ML VIAL ONE (18:06)
[2024-04-26] MEDS ORDERED: POTASSIUM 25 MEQ EFFERV TAB ONE (18:06)
--- NOTE | 2024-04-26 18:21 | RAD REPORT ---
EXAMINATION: CTA CHEST PE CLINICAL INDICATION: Female, 78 years old. PE TECHNIQUE: This examination was performed according to an angiographic protocol with 3D post-processi ng. This involves 3D reconstructions, MIPs, volume rendered images and/or shaded surface rendering. One or more of the following dose reduction techniques were used: Automated exposure control, adjustm ent of the mA and/or kV according to patient size, and/or iterative reconstruction. Unless otherwise specified, incidental findings do not require dedicated imaging follow-up. [id number]. COMPARISON: 01/03/2024 FINDINGS: LOWER NECK: Visualized thyroid gland and soft tissues are normal. LUNGS AND AIRWAYS: Motion limited. No evidence of edema or pneumonia. Mild subpleural reticulation. PLEURA: No pleural effusion. No pneumothorax. Hemidiaphragms are normally positioned. MEDIASTINUM AND LYMPH NODES: No mediastinal mass or fluid collection. Normal size mediastinal, hilar, and axillary lymph nodes. THORACIC AORTA: Normal caliber and configuration. PULMONARY ARTERIES: No evidence of pulmonary embolism. Enlarged main pulmonary artery suggesting pulm onary hypertension. HEART: Cardiomegaly. Coronary arterial calcifications are present. No pericardial effusion. OSSEOUS STRUCTURES AND CHEST WALL: Intact. Sternotomy. Multilevel degenerative changes are present in the spine. UPPER ABDOMEN: Low-density liver lesions noted which are probably benign and unchanged from prior. IMPRESSION: No evidence of pulmonary emboli to the subsegmental level. Lungs are clear. Cardiomegaly. Enlarged main pulmonary artery suggests pulmonary hypertension.
[2024-04-26] MEDS ORDERED: ALBUTEROL 2.5 MG/3 ML NEB SOL NEB PRN (20:18)
[2024-04-26] MEDS: LEVOTHYROXINE SOD 0.05 MG TABLET PO SCH (20:30)
--- NOTE | 2024-04-26 20:35 | P.HP ---
Certification for Inpatient With expected LOS: <2 Midnights Practitioner: I am a practitioner with admitting privileges, knowledge of patient current condition, hospital course, and medical plan of care. Services: Services provided to patient in accordance with Admission requirements found in Title 42 Section 412.3 of the Code of Federal Regulations Patient History Date of Service: 04/26/24 Reason for admission: upper respiratory infection History of Present Illness: 78-year-old woman with a past medical history significant for hypothyroidism, CHF, depression, chronic pulmonary hypertension, CAD s/p CABG, and WINNIE on CPAP at bedtime presented to the emergency department complaining of a constant cough x 3 days. The patient is alert and oriented x 3. The patient's is present at bedside. The patient states that she has had a constant cough for the past 3 days that is now productive. The patient states with a productive cough, she has felt short of breath today. The patient is on home oxygen for her chronic pulmonary hypertension at bedtime. She has attempted OTC cough medication and reports minimal improvement. She states nothing worsens her symptoms. The patient is a former smoker who quit 30 years ago. She denies fever, and urinary symptoms. Allergies 2-octyl cyanoacrylate [octyl 2-cyanoacrylate] Allergy (Verified 04/09/12 09:07) Anaphylaxis amoxicillin [Amoxicillin] Allergy (Verified 04/09/12 09:07) Rash esomeprazole mag [From Nexium] Allergy (Verified 04/09/12 09:02) Anaphylaxis wheat Allergy (Verified 04/09/12 09:07) Anaphylaxis Antihistamines - Alkylamine Adverse Reaction (Verified 04/09/12 09:07) states in ones with decongestants it aggrevates her heart levofloxacin [From Levaquin] Adverse Reaction (Verified 04/09/12 09:07) stomach cramps metronidazole Adverse Reaction (Verified 04/09/12 09:07) stomach cramps rosuvastatin calcium [From Crestor] Adverse Reaction (Verified 04/09/12 09:07) weakness Home medications list reviewed: Yes Home Medications: Albuterol Sulfate [Albuterol Sulfate 0.083% Neb Soln] 2.5 mg IH PRN 11/08/23 Albuterol Sulfate [Proair Hfa] See Rx Instructions .ROUTE .COMPLEX PRN 11/08/23 Aspirin [Aspirin EC] 81 mg PO DAILY 11/08/23 Azelastine [Astelin 137MCG/Metered [place]*] 30 sprays NS PRN 11/08/23 Bempedoic Acid [Nexletol] 180 mg 1X 11/08/23 Dupilumab [Dupixent Pen] 300 mg SQ SEECOM 11/08/23 Empagliflozin [Jardiance] 10 mg PO DAILY 11/08/23 Estrogens, Conjugated [Premarin] 1.25 mg PO 1X 11/08/23 Famotidine 20 mg PO BID 11/08/23 Fexofenadine HCl 180 mg PO DAILY 11/08/23 Levothyroxine [Synthroid*] 50 mcg PO 1X 11/08/23 Montelukast [Singulair*] 10 mg PO BEDTIME 11/08/23 Sacubitril/Valsartan [Entresto 24 mg-26 mg Tablet] 1 tab PO BID 11/08/23 Sertraline [Zoloft*] 50 mg PO 1X 11/08/23 tadalafiL [Cialis] 20 mg PO BID 11/08/23 Amiodarone HCl [Cordarone*] 200 mg PO DAILY #30 tab 11/09/23 Rivaroxaban [Xarelto] 20 mg PO DAILY #30 tab 11/09/23 - Past Medical/Surgical History Diabetic: No -: OA -: DJD -: chronic low back pain -: Depression -: History of falls -: Asthma -: WINNIE -: Chronic lung disease on home 02 prn and HS -: Hypothyroidism -: CHF -: chronic pulm HTN on home oxygen 1 L at bedtime -: CAD s/p CABG -: X4 Back surgeries -: Hystertectomy -: Knee scraping of deposits Psychosocial/ Personal History: , retired, good family support, lives in a 2 story home - Social History Smoking Status: Former smoker (quit 30 years ago) Alcohol use: No CD- Drugs: No Caffeine use: Yes Review of Systems Respiratory: Cough, Shortness of Breath Physical Examination - Vital Signs Temperature: 98.0 F Blood Pressure: 142/73 Pulse: 62 Respirations: 18 Pulse Ox (%): 100 (room air) - Physical Exam General: Alert, Oriented x3 HEENT: Atraumatic, Normocephalic Neck: JVD not distended Respiratory: Crackles/rales (bilateral lungs) Cardiovascular: No edema, Regular rate/rhythm, No gallops, No rubs, No murmurs Gastrointestinal: Normal bowel sounds, Non-distended, No tenderness Musculoskeletal: No swelling, No erythema, No tenderness, No warmth Neurological: Normal strength at 5/5 x4 extr, Sensation intact - Studies Laboratory Data (last 24 hrs) 04/26/24 04/26/24 04/26/24 16:43 16:43 16:43 WBC 5.60 Hgb 12.5 Hct 37.0 Plt Count 149 L PT 38.4 H INR 3.56 Sodium 138 Potassium 3.2 L BUN 29 H Creatinine 1.13 H Glucose 98 Magnesium 2.5 H Total Bilirubin 0.4 AST 31 ALT 24 Alkaline Phosphatase 37 L Microbiology Data (last 24 hrs): 04/26/24 14:36 Nasopharnyx Influenza Type A Antigen Screen - Final 04/26/24 14:36 Nasopharnyx Influenza Type B Antigen Screen - Final Assessment and Plan - Problems (Diagnosis) (1) Pulmonary hypertension Current Visit: Yes Status: Acute (2) CAD (coronary artery disease) Current Visit: Yes Status: Acute (3) Depression Current Visit: Yes Status: Acute (4) WINNIE on CPAP Current Visit: Yes Status: Acute (5) Congestive heart failure Current Visit: No Status: Chronic (6) Hypothyroidism Current Visit: No Status: Chronic (7) URI (upper respiratory infection) Current Visit: Yes Status: Acute - Plan Upper respiratory infection: Admit to floor Jen patient Respiratory therapy consulted DuoNebs as needed Solu-Medrol 60 q6 ordered Pulm consulted Continue with oxygen via nasal cannula Tessalon Perles ordered for cough CXR revealed no acute disease Given azithromycin, Rocephin, breathing treatments, Lasix, magnesium, Solu- Medrol, and potassium repletion in ED Blood cultures collected in ED CHF: Resume home medication BNP improved since 12/18, BNP to continue to monitor Heparin ordered Hypothyroidism: Resume home medication Depression: Resume home medication Chronic pulmonary hypertension: Pulm consulted Continue with oxygen via nasal cannula CT chest revealed no pulmonary embolism, cardiomegaly, pulmonary hypertension WINNIE: CPAP at bedtime ordered - Advance Directives Does patient have a Living Will: No Does patient have a Durable POA for Healthcare: No
[2024-04-26] MEDS: SERTRALINE HCL 50 MG TAB PO SCH (21:00)
[2024-04-26] MEDS: SACUBITRIL/VALSARTAN 24/26 MG TAB PO SCH (21:00)
[2024-04-26 23:55] VITALS: BMI 28.0
[2024-04-27] MEDS: IPRATROPIUM BROM 0.5MG/2.5ML NEB SCH (01:03)
[2024-04-27] MEDS: METHYLPREDNISOLONE 125 MG INJ IV SCH (01:05)
[2024-04-27] MEDS: HEPARIN 5000 UNIT/ML 1 ML VIAL SQ SCH (01:05)
[2024-04-27 01:08] LABS: Specific Gravity 1.029 (1.005-1.030); Urine Bilirubin NEGATIVE (Negative); Urine Blood Negative (Negative); Urine Clarity Clear (Clear); Urine Color Colorless (Yellow); Urine Glucose 4+ (Over) (Negative); Urine Ketones NEGATIVE (Negative); Urine Microscopic Reflex YN NO UMIC; Urine Nitrite NEGATIVE (Negative); Urine Protein NEGATIVE (Negative); Urine Urobilinogen Normal (Normal); Urine pH 6.5 (5.0-7.0)
[2024-04-27 06:12] LABS: Absolute Monocytes 0.1 K/uL (0.1-1.3); Absolute Neutrophil 3.3 K/uL (1.8-8.0); Basophils % 0.5 % (0-1.3); Hematocrit 40.7 % (36.0-45.0); Hemoglobin 13.6 g/dL (12.0-15.0); Lymphocytes % 23.2 % (15.3-44.8); MCH 33.2 pg (27.0-35.0); MCHC 33.4 g/dL (32.0-36.0); MCV 99.2 fL (80-100); MPV 9.6 fL (7.6-11.3); Monocytes % 2.2 % (3.3-12.3); Neutrophils % 74.1 % (41.7-73.7); Platelets 182 thou/uL (152-406); RBC Red Blood Cell Count 4.11 M/uL (3.86-4.86); Red Cell Distribution Width 14.3 % (12.1-15.2)
[2024-04-27 06:37] LABS: Albumin 3.8 g/dL (3.4-5.0); Albumin/Globulin Ratio 0.8 (1.1-1.8); Anion Gap 11.8 mEq/L (5.0-15.0); Bilirubin Total 0.5 mg/dL (0.2-1.0); Globulin 4.6 g/dL (2.3-3.5); Magnesium 2.7 mg/dL (1.6-2.4); Phosphorus 4.1 mg/dL (2.5-4.9); Potassium 3.8 mEq/L (3.5-5.1); Protein, Total 8.4 g/dL (6.4-8.2); Thyroid Stimulating Hormone 0.646 uIU/mL (0.358-3.740)
[2024-04-27] MEDS: SERTRALINE HCL 50 MG TAB PO SCH (09:37)
--- NOTE | 2024-04-27 10:22 | P.PN ---
Subjective Date of Service: 04/28/24 Chief Complaint: upper respiratory infection resports productive cough, shortness of breath with exertion <Cookie Hart - Last Filed: 04/28/24 01:42> Date of Service: 04/27/24 <Abdoulaye Hernandezl - Last Filed: 04/28/24 03:30> Review of Systems 10-point ROS is otherwise unremarkable <Cookie Hart - Last Filed: 04/28/24 01:42> Physical Examination - Vital Signs Temperature: 97.6 F Blood Pressure: 138/70 Pulse: 97 Respirations: 16 Pulse Ox (%): 92 - Physical Exam General: Alert, In no apparent distress, Oriented x3 HEENT: Atraumatic, Normocephalic Respiratory: Expiratory wheezes, Inspiratory wheezes, Other (productive cough) Cardiovascular: No edema, Regular rate/rhythm, Normal S1 S2 Gastrointestinal: Normal bowel sounds, Soft and benign Musculoskeletal: No clubbing, No swelling Integumentary: No rashes, No breakdown Neurological: Normal speech, Normal strength at 5/5 x4 extr - Studies Laboratory Data (last 24 hrs) 04/26/24 04/26/24 04/26/24 16:43 16:43 16:43 WBC 5.60 Hgb 12.5 Hct 37.0 Plt Count 149 L PT 38.4 H INR 3.56 Sodium 138 Potassium 3.2 L BUN 29 H Creatinine 1.13 H Glucose 98 Magnesium 2.5 H Total Bilirubin 0.4 AST 31 ALT 24 Alkaline Phosphatase 37 L Microbiology Data (last 24 hrs): 04/26/24 14:36 Nasopharnyx Influenza Type A Antigen Screen - Final 04/26/24 14:36 Nasopharnyx Influenza Type B Antigen Screen - Final <Cookie Hart - Last Filed: 04/28/24 01:42> Assessment And Plan - Plan Assessment and Plan - Problems (Diagnosis) (1) Pulmonary hypertension Current Visit: Yes Status: Acute (2) CAD (coronary artery disease) Current Visit: Yes Status: Acute (3) Depression Current Visit: Yes Status: Acute (4) WINNIE on CPAP Current Visit: Yes Status: Acute (5) Congestive heart failure Current Visit: No Status: Chronic (6) Hypothyroidism Current Visit: No Status: Chronic (7) URI (upper respiratory infection) Current Visit: Yes Status: Acute - Plan Upper respiratory infection: Admit to floor Jen patient Respiratory therapy consulted TorreyoNebs as needed Solu-Medrol 60 q6 ordered Pulm consulted Continue with oxygen via nasal cannula Tessalon Perles ordered for cough CXR revealed no acute disease Given azithromycin, Rocephin, breathing treatments, Lasix, magnesium, Solu- Medrol, and potassium repletion in ED Blood cultures collected in ED CHF: Resume home medication BNP improved since 7 echo ordered, card to eval BNP to continue to monitor Heparin ordered Hypothyroidism: Resume home medication Depression: Resume home medication Chronic pulmonary hypertension: Pulm consulted Continue with oxygen via nasal cannula CT chest revealed no pulmonary embolism, cardiomegaly, pulmonary hypertension WINNIE: CPAP at bedtime ordered - Advance Directives Does patient have a Living Will: No Does patient have a Durable POA for Healthcare: No Discharge Plan: Home - Code Status/Comfort Care Code Status: Full Code Critical Care: No Time Spent Managing PTS Care (In Minutes): 35 <Cookie Hart - Last Filed: 04/28/24 01:42> Date of Service: 04/27/24 Patient was seen and examined. Events of the last 24 hours have been noted. Spoke with with STEFF regarding patient's clinical picture after evaluating and examining the patient independently. I performed a substantial part of the MDM during this patient's care today. I personally made or approved the documented management plan and acknowledge its risk of complications. I agree with the find ings and documentation provided in the STEFF's notes. Clinically doing well. Anticipate discharge in a.m. if continues to do well. <Abdoulaye Hernandez - Last Filed: 04/28/24 03:30>
[2024-04-27] MEDS ORDERED: ALBUTEROL 2.5 MG/3 ML NEB SOL NEB PRN (10:35)
[2024-04-27] MEDS: CEFTRIAXONE 2,000 MG in NA CHLORIDE 0.9% 100 ML IV SCH (11:45)
[2024-04-27] MEDS: FUROSEMIDE 40 MG/4 ML VIAL IV SCH (12:34)
[2024-04-27] MEDS: LEVALBUTEROL 1.25 MG/3 ML NEB NEB SCH (13:00)
--- NOTE | 2024-04-27 14:12 | EKG ---
Test Date: 2024-04-26 Test Time: 16:22:20 Clerk Supervisor: JENNIFER MEASUREMENT RESULTS: Intervals: Rate: 56 OK: 204 QRSD: 112 QT: 520 QTc: 501 Noble: P: 9 OK: 204 QRS: -59 T: -57 INTERPRETIVE STATEMENTS: Sinus bradycardia with occasional premature ventricular complexes Left axis deviation Incomplete left bundle branch block Nonspecific ST and T wave abnormality Prolonged QT Abnormal ECG Compared to ECG 12/03/2023 21:05:49 Left bundle-branch block now present ST (T wave) deviation now present T-wave abnormality no longer present Electronically Signed On 04-27-24 14:10:46 INTERNAL RECRUITER by Eric Fagan
--- NOTE | 2024-04-27 16:52 | CON ---
Date of Consultation: 04/27/2024 Reason For Consultation: Elevated NT proBNP. History Of Present Illness: This is an 78-year-old female coming into the hospital with shortness of breath, productive cough, congestion, and wheezing. Denies having any chest pain. No orthopnea or lower extremity edema. She has past medical history of CHF and coronary artery disease, status post CABG. Denies having any active chest pain. No nausea. No nausea, vomiting, or diarrhea. Past Medical History: Coronary artery disease, asthma, hypertension, congestive heart failure, COPD, hypothyroidism. Medications: Refer to reconciliation sheet for detailed list. Allergies: LONG LIST OF ALLERGY WAS REVIEWED. PLEASE REFER TO NURSE'S NOTE. Social History: Ex-smoker. Does not drink, use any drugs. Family History: No premature coronary artery disease or cancer. Review of Systems: All systems reviewed and they were negative except as mentioned in the HPI. Physical Examination: Vital Signs: Reviewed. Head and Neck: Pupils equal and reactive to light. Intact eye movements. No JVD. No cervical lymp hadenopathy. Neck supple. Thyroid is not enlarged. Lungs: Rhonchi bilaterally. No accessory muscle use or muscle retraction. Heart: Irregular. No extra sounds. Abdomen: Soft and nontender. Bowel sounds positive. No organomegaly. No masses or hernia. No rig idity or rebound. Extremities: No edema, clubbing, cyanosis. Intact pulses. Skin: No rash. Neuro: Alert, awake, oriented x3. No acute focal deficits appreciated. Investigations: BUN 30, creatinine 1.14, and hemoglobin is 13.6. Assessment/recommendation: 1.Elevated NT proBNP. She is known to have history of congestive heart failure. Please discontinue IV Lasix. This is not an acute exacerbation and put her on home medications and no need to repeat e cho tomorrow. Cancel the order. She had an echo back in October. 2.Upper respiratory tract infection, which is causing her shortness of breath, likely pneumonia. Ag ree with IV antibiotics. 3.Mitral valve regurgitation, it is mild. I will follow this through in the outpatient arena. 4.Hypothyroidism, on LT4. SR/MODL Voice ID: [id number] Report ID: [id number]
[2024-04-27] MEDS: METHYLPREDNISOLONE 40 MG INJ IV SCH (17:17)
[2024-04-27] MEDS: POTASSIUM CL SA 10 MEQ TAB PO ONE (20:36)
[2024-04-27] MEDS: ACETAMINOPHEN 325 MG TABLET PO PRN (20:36)
[2024-04-27] MEDS ORDERED: MELATONIN 5 MG TABLET PO PRN (22:14)
[2024-04-27] MEDS: TRAZODONE 50 MG TABLET PO PRN (22:53)
[2024-04-28] MEDS: BENZONATATE 100 MG CAP PO PRN (05:21)
[2024-04-28] MEDS: LEVOTHYROXINE SOD 0.05 MG TABLET PO SCH (05:22)
--- NOTE | 2024-04-28 08:18 | P.DS ---
Admission Date: 04/26/24 Discharge Date: 04/28/24 Disposition: ROUTINE DISCHARGE Discharge Condition: GOOD Reason for Admission: upper respiratory infection Brief History of Present Illness: 78-year-old woman with a past medical history significant for hypothyroidism, CHF, depression, chronic pulmonary hypertension, CAD s/p CABG, and WINNIE on CPAP at bedtime presented to the emergency department complaining of a constant cough x 3 days. The patient is alert and oriented x 3. The patient's is present at bedside. The patient states that she has had a constant cough for the past 3 days that is now productive. The patient states with a productive cough, she has felt short of breath today. The patient is on home oxygen for her chronic pulmonary hypertension at bedtime. She has attempted OTC cough medication and reports minimal improvement. She states nothing worsens her symptoms. The patient is a former smoker who quit 30 years ago. She denies fever, and urinary symptoms. - Physical Exam General: Alert, Oriented x3 HEENT: Atraumatic, Normocephalic Neck: JVD not distended Respiratory: Crackles/rales (bilateral lungs) Cardiovascular: No edema, Regular rate/rhythm, No gallops, No rubs, No murmurs Gastrointestinal: Normal bowel sounds, Non-distended, No tenderness Musculoskeletal: No swelling, No erythema, No tenderness, No warmth Neurological: Normal strength at 5/5 x4 extr, Sensation intact Hospital Course: 78-year-old woman with a past medical history significant for hypothyroidism, CHF, depression, chronic pulmonary hypertension, CAD s/p CABG, and WINNIE on CPAP at bedtime presented to the emergency department complaining of a constant cough x 3 days. The patient is alert and oriented x 3. The patient's is present at bedside. The patient states that she has had a constant cough for the past 3 days that is now productive. The patient states with a productive cough, she has felt short of breath, worse with excertion The patient is a former smoker who quit 30 years ago. Noted to have acute upper respiratory infection, acute hyporespiratory failure, pulmonary hypertension, congestive heart elevated BNP, history of obstructive sleep apnea, CAD, depression, she was treated with oxygen, steroids, IV antibiotics, improving on treatment plan. Will order home O2 prior to discharge, discharged home on p.o. antibiotics, steroids, nebulizers. Follow-up with pulmonary after discharge Order home O2 prior to discharge Discharge medications, steroids, inhalers, antibiotics, follow-up with pulmonary, cardiology, after discharge Assessment Acute hypoxic respiratory failure secondary to upper respiratory infection, pulmonary hypertension, elevated BNP, suspected heart failure, treated with oxygen, Lasix, echo ordered prior to discharge, Pulmonary hypertension, follow-up with pulmonary after the discharge Elevated BNP, suspected heart failure, treated with Lasix History of CAD resume home meds History of depression resume home meds History of hypothyroidism resume home meds Continue home medicines as previously prescribed GOAL: Clear understanding of disease process INSTRUCTIONS: Physician Discharge Instructions: -Follow-up with pulmonary after discharge -Follow-up with cardiology after discharge -Follow-up with PCP in 1 to 2 weeks -Please call Dr. Hernandez at [phone] if any questions regarding hospital stay -Please call nursing station at [phone] if any nursing or medication questions -Return to the emergency room if symptoms worsen Diet: ADA, low sodium Activity: Fall precautions Vital Signs/Physical Exam: Temp Pulse Resp BP Pulse Ox 97.1 F 51 17 147/77 H 99 04/28/24 04:00 04/28/24 04:00 04/28/24 04:00 04/28/24 04:00 04/28/24 04:00 Laboratory Data at Discharge: WBC 4.50 thou/uL (4.3-10.9) 04/27/24 05:59 Hgb 13.6 g/dL (12.0-15.0) D 04/27/24 05:59 Hct 40.7 % (36.0-45.0) 04/27/24 05:59 Plt Count 182 thou/uL (152-406) 04/27/24 05:59 PT 38.4 SECONDS (9.4-12.5) H 04/26/24 16:43 INR 3.56 04/26/24 16:43 Sodium 139 mEq/L (136-145) 04/27/24 05:59 Potassium 3.8 mEq/L (3.5-5.1) D 04/27/24 05:59 BUN 30 mg/dL (7-18) H 04/27/24 05:59 Creatinine 1.14 mg/dL (0.55-1.02) H 04/27/24 05:59 Glucose 150 mg/dL (74-106) H 04/27/24 05:59 Phosphorus 4.1 mg/dL (2.5-4.9) 04/27/24 05:59 Magnesium 2.7 mg/dL (1.6-2.4) H 04/27/24 05:59 Total Bilirubin 0.5 mg/dL (0.2-1.0) 04/27/24 05:59 AST 35 U/L (15-37) 04/27/24 05:59 ALT 27 U/L (13-56) 04/27/24 05:59 Alkaline Phosphatase 44 U/L (45-117) L 04/27/24 05:59 Home Medications: Albuterol Sulfate [Albuterol Sulfate 0.083% Neb Soln] 2.5 mg IH PRN 11/08/23 Albuterol Sulfate [Proair Hfa] See Rx Instructions .ROUTE .COMPLEX PRN 11/08/23 Aspirin [Aspirin EC] 81 mg PO DAILY 11/08/23 Azelastine [Astelin 137MCG/Metered [place]*] 30 sprays NS PRN 11/08/23 Bempedoic Acid [Nexletol] 180 mg 1X 11/08/23 Dupilumab [Dupixent Pen] 300 mg SQ SEECOM 11/08/23 Empagliflozin [Jardiance] 10 mg PO DAILY 11/08/23 Estrogens, Conjugated [Premarin] 1.25 mg PO 1X 11/08/23 Famotidine 20 mg PO BID 11/08/23 Fexofenadine HCl 180 mg PO DAILY 11/08/23 Levothyroxine [Synthroid*] 50 mcg PO 1X 11/08/23 Montelukast [Singulair*] 10 mg PO BEDTIME 11/08/23 Sacubitril/Valsartan [Entresto 24 mg-26 mg Tablet] 1 tab PO BID 11/08/23 Sertraline [Zoloft*] 50 mg PO 1X 11/08/23 tadalafiL [Cialis] 20 mg PO BID 11/08/23 Amiodarone HCl [Cordarone*] 200 mg PO DAILY #30 tab 11/09/23 Rivaroxaban [Xarelto*] 20 mg PO DAILY #30 tab 11/09/23 Benzonatate [Tessalon Perle*] 100 mg PO TID PRN #20 cap 04/28/24 Cefdinir [Cefdinir*] 300 mg PO BID #14 cap 04/28/24 Ipratropium Neb [Atrovent*] 0.5 mg NEB [id number] #60 amp 04/28/24 Levalbuterol [Xopenex*] 1.25 mg NEB TIDRESP #60 amp 04/28/24 predniSONE [Deltasone] 20 mg PO BID #11 tab 04/28/24 New Medications: Ipratropium Neb [Atrovent*] 0.5 mg NEB [id number] #60 amp Cefdinir [Cefdinir*] 300 mg PO BID #14 cap predniSONE [Deltasone] 20 mg PO BID #11 tab Benzonatate [Tessalon Perle*] 100 mg PO TID PRN #20 cap PRN Reason: Cough Levalbuterol [Xopenex*] 1.25 mg NEB TIDRESP #60 amp Physician Discharge Instructions: -DC IV and DC home -Follow-up with PCP in 1 to 2 weeks -Follow-up with [facility] in 1 to 2 weeks -Please call Dr. Hernandez at [phone] if any questions regarding hospital stay -Please call nursing station at [phone] if any nursing or medication questions -Return to the emergency room if symptoms worsen Diet: AHA Activity: Fall precautions Followup: Ant Li MD [Primary Care Provider] - Time spent managing pt's care (in minutes): 45
[2024-04-28] MEDS: CEFTRIAXONE 1,000 MG in NA CHLORIDE 0.9% 50 ML IVPB SCH (09:22)
--- NOTE | 2024-04-28 10:38 | P.PN ---
Subjective Date of Service: 04/28/24 Chief Complaint: cough and short of breath Subjective: Worsening I SAW HER TODAY. SHE WAS SEEN BY HOSPITALISTS FOR THE WEEKEND. SHE IS WEAK, LAYING IN BED. SOME BETTER. Review of Systems General: As per HPI Physical Examination - Vital Signs Temperature: 97.5 F Blood Pressure: 125/70 Pulse: 43 Respirations: 20 Pulse Ox (%): 90 - Physical Exam General: Mild distress, Moderate distress HEENT: Atraumatic, PERRLA, EOMI Neck: Supple, JVD not distended Respiratory: Inspiratory wheezes (DIFFUSE.), Rhonchi/gurgles Cardiovascular: Regular rate/rhythm, Normal S1 S2 Gastrointestinal: Normal bowel sounds, No tenderness Musculoskeletal: No tenderness Integumentary: No rashes Neurological: Normal speech, Normal tone, Normal affect Lymphatics: No axilla or inguinal lymphadenopathy - Studies Medications List Reviewed: Yes Assessment And Plan - Current Problems (Diagnosis) (1) COPD with acute bronchitis Current Visit: Yes Status: Acute Plan: SHE WAS HYPOXIC LAST NIGHT. DOWN TO 85% STILL HAS WHEEZING AND ACUTE BRONCHITIS CANCEL DISCHARGE ADD ZITHROMAX OR ATYPICAL COVERAGE STOP ROCEPHIN SHE HAS NO PNEUMONIA. CONT STEROIDS IV AND NEBS. (2) Pulmonary hypertension Current Visit: Yes Status: Acute
[2024-04-28] MEDS: AZITHROMYCIN IV 500 MG in NA CHLORIDE 0.9% 250 ML IVPB SCH (11:43)
[2024-04-29] MEDS: Levofloxacin500mg IV 500 MG/100 ML BAG IV SCH (08:31)
--- NOTE | 2024-04-29 13:16 | P.PN ---
Subjective Date of Service: 04/29/24 Chief Complaint: cough and short of breath I SAW HER TODAY. SHE WAS SEEN BY HOSPITALISTS FOR THE WEEKEND. SHE IS WEAK, LAYING IN BED. SOME BETTER. ESTRADA IS STIL WEAK. HAS DEEP COUGH AND DYSPNEA. Review of Systems 10-point ROS is otherwise unremarkable General: Weakness Physical Examination - Vital Signs Temperature: 98.0 F Blood Pressure: 144/75 Pulse: 53 Respirations: 18 Pulse Ox (%): 94 - Physical Exam General: Acute distress, Moderate distress HEENT: Atraumatic, PERRLA, EOMI Neck: Supple, JVD not distended Respiratory: Inspiratory wheezes Cardiovascular: Regular rate/rhythm, Normal S1 S2 Gastrointestinal: Normal bowel sounds, No tenderness Musculoskeletal: No tenderness Integumentary: No rashes Neurological: Normal speech, Normal tone, Normal affect Lymphatics: No axilla or inguinal lymphadenopathy - Studies Medications List Reviewed: Yes Assessment And Plan - Current Problems (Diagnosis) (1) COPD with acute bronchitis Current Visit: Yes Status: Acute Plan: SHE WAS HYPOXIC LAST NIGHT. DOWN TO 85% STILL HAS WHEEZING AND ACUTE BRONCHITIS I ADDED LEVAQUIN ZITHROMAX WAS NOT GIVEN. STOP AMIDARONE IT WILL INTERACT WITH LEVAQUIN SHE NEEDS THIS ANTIBIOTIC OTHER BROAD SPECTRUM HAS FAILED AND SHE NEEDS ATYPICAL COVERAGE. (2) Pulmonary hypertension Current Visit: Yes Status: Acute
[2024-04-29] MEDS: POTASSIUM 25 MEQ EFFERV TAB PO ONE (14:43)
[2024-04-30] MEDS: METOPROLOL XL 50 MG TAB PO SCH (04:57)
[2024-04-30] MEDS: **PT MED**Empagliflozin [Jardiance] 10 MG Tablet PO SCH ×2 (09:00→12:17)
[2024-04-30] MEDS: RIVAROXABAN 20 MG TABLET PO SCH (09:23)
[2024-04-30] MEDS: CALCIUM CARBONATE CHEW 500MG TAB PO PRN (10:44)
[2024-04-30] MEDS: ARFORMOTEROL TARTRATE 15 MCG/2 ML VIAL.NEB NEB SCH (12:20)
--- NOTE | 2024-04-30 12:21 | P.CNS ---
Date of Consult: 04/30/24 Reason for Consult: Cough and shortness of breath Chief Complaint: cough and short of breath History of Present Illness: Patient is 78 years of age admitted with acute onset of shortness of breath history of congestive heart failure patient denies any fever acutely worse ended up here in the hospital still wheezing Allergies 2-octyl cyanoacrylate [octyl 2-cyanoacrylate] Allergy (Verified 04/09/12 09:07) Anaphylaxis amoxicillin [Amoxicillin] Allergy (Verified 04/09/12 09:07) Rash esomeprazole mag [From Nexium] Allergy (Verified 04/09/12 09:02) Anaphylaxis wheat Allergy (Verified 04/09/12 09:07) Anaphylaxis Antihistamines - Alkylamine Adverse Reaction (Verified 04/09/12 09:07) states in ones with decongestants it aggrevates her heart levofloxacin [From Levaquin] Adverse Reaction (Verified 04/09/12 09:07) stomach cramps metronidazole Adverse Reaction (Verified 04/09/12 09:07) stomach cramps rosuvastatin calcium [From Crestor] Adverse Reaction (Verified 04/09/12 09:07) weakness Home Medications: Albuterol Sulfate [Albuterol Sulfate 0.083% Neb Soln] 2.5 mg IH PRN 11/08/23 Albuterol Sulfate [Proair Hfa] See Rx Instructions .ROUTE .COMPLEX PRN 11/08/23 Azelastine [Astelin 137MCG/Metered [place]*] 0.1 % NS DAILYPRN PRN 11/08/23 Bempedoic Acid [Nexletol] 180 mg PO DAILY 11/08/23 Estrogens, Conjugated [Premarin] 1.25 mg PO DAILY 11/08/23 Famotidine 20 mg PO BID 11/08/23 Fexofenadine HCl 180 mg PO DAILY 11/08/23 Levothyroxine [Synthroid*] 50 mcg PO DAILY 11/08/23 Montelukast [Singulair*] 10 mg PO BEDTIME 11/08/23 Sacubitril/Valsartan [Entresto 24 mg-26 mg Tablet] 24 - 26 mg PO BID 11/08/23 Sertraline [Zoloft*] 50 mg PO DAILY 11/08/23 Rivaroxaban [Xarelto*] 20 mg PO DAILY #30 tab 11/09/23 Benzonatate [Tessalon Perle*] 100 mg PO TID PRN #20 cap 04/28/24 Cefdinir [Cefdinir*] 300 mg PO BID #14 cap 04/28/24 Ipratropium Neb [Atrovent*] 0.5 mg NEB [id number] #60 amp 04/28/24 Levalbuterol [Xopenex*] 1.25 mg NEB TIDRESP #60 amp 04/28/24 predniSONE [Deltasone] 20 mg PO BID #11 tab 04/28/24 Amiodarone HCl [Pacerone] 200 mg PO DAILY 04/29/24 Dupilumab [Dupixent Pen] 300 mg IM Q15D 04/29/24 Empagliflozin [Jardiance] 10 mg PO DAILY 04/29/24 Furosemide [Lasix] 20 mg PO BIDL 04/30/24 - Past Medical/Surgical History Diabetic: No -: OA -: DJD -: chronic low back pain -: Depression -: History of falls -: Asthma -: WINNIE -: Chronic lung disease on home 02 prn and HS -: Hypothyroidism -: CHF -: chronic pulm HTN on home oxygen 1 L at bedtime -: CAD s/p CABG -: X4 Back surgeries -: Hystertectomy -: Knee scraping of deposits Psychosocial/ Personal History: , retired, good family support, lives in a 2 story home - Social History Smoking Status: Former smoker Alcohol use: No CD- Drugs: No Caffeine use: Yes Place of Residence: Home Review of Systems 10-point ROS is otherwise unremarkable General: Weakness Respiratory: Shortness of Breath Physical Examination Temp Pulse Resp BP Pulse Ox 97.9 F 58 16 138/61 95 04/30/24 08:00 04/30/24 08:00 04/30/24 08:00 04/30/24 08:00 04/30/24 08:00 General: Alert, In no apparent distress, Oriented x3 Respiratory: Expiratory wheezes Cardiovascular: No edema, Regular rate/rhythm, Normal S1 S2 Gastrointestinal: Normal bowel sounds, Soft and benign Musculoskeletal: No clubbing, No swelling - Problems (1) CHF exacerbation Current Visit: Yes Status: Acute Plan: Patient is 78 years of age with a history of congestive heart failure admitted with worsening acute dyspnea SPECT his heart failure her BNP is very elevated no evidence of obstructive airways disease on her pulmonary function testing could be a viral reactive airways disease have added some prednisone scheduled bronchodilators and higher dose of IV Lasix repeat 2D echocardiogram doubt if patient have sepsis patient is still wheezing Qualifiers: Heart failure type: systolic Qualified Code(s): I50.23 - Acute on chronic systolic (congestive) heart failure
[2024-04-30 12:48] LABS: Arterial Blood Carboxyhemoglob 0.9 % (0-1.5); Blood Gas Oxyhemoglobin 94.3 % (94-97); Blood Gas THB 12.9 g/dl (12-18)
[2024-04-30] MEDS: FUROSEMIDE 40 MG/4 ML VIAL IV SCH (12:53)
[2024-04-30] MEDS: predniSONE 20 MG TAB PO SCH (12:53)
[2024-04-30] MEDS ORDERED: FUROSEMIDE 20 MG TABLET PO SCH ×2 (14:00→21:00)
[2024-04-30] MEDS: GUAIFENESIN/CODEINE 5ML UCUP PO PRN (17:32)
[2024-04-30] MEDS: PANTOPRAZOLE 40MG TABLET PO SCH (17:32)
[2024-05-01 04:37] VITALS: TEMP 97.2
[2024-05-01 09:32] VITALS: O2SAT 98
[2024-05-01 13:05] VITALS: BP 146/68
--- NOTE | 2024-05-01 13:05 | P.DS ---
Admission Date: 04/26/24 Discharge Date: 05/01/24 Disposition: ROUTINE DISCHARGE Discharge Condition: GOOD Reason for Admission: cough and short of breath - Problems (1) COPD with acute bronchitis Status: Acute (2) Pulmonary hypertension Status: Acute Hospital Course: ESTRADA COMESWITH INCESSANT COUGH AND I FOUND THAT SHE HAS WHEEZES WITHOUT ANY RALES. SHE IMPROVED AFTER LEVAQUIN. I STOPPED AMIODARONE AND KEPT HER ON B ERNESTO. SHE IS STABLE FOR HOME. SHE HAS PULMONARY HTN BUT NO CHF SIGNS ON X RAY. Vital Signs/Physical Exam: Temp Pulse Resp BP Pulse Ox 97.2 F 64 17 113/54 L 95 05/01/24 04:00 05/01/24 05:18 05/01/24 04:00 05/01/24 05:18 05/01/24 04:00 Laboratory Data at Discharge: WBC 4.50 thou/uL (4.3-10.9) 04/27/24 05:59 Hgb 13.6 g/dL (12.0-15.0) D 04/27/24 05:59 Hct 40.7 % (36.0-45.0) 04/27/24 05:59 Plt Count 182 thou/uL (152-406) 04/27/24 05:59 PT 38.4 SECONDS (9.4-12.5) H 04/26/24 16:43 INR 3.56 04/26/24 16:43 Sodium 139 mEq/L (136-145) 04/27/24 05:59 Potassium 3.8 mEq/L (3.5-5.1) D 04/27/24 05:59 BUN 30 mg/dL (7-18) H 04/27/24 05:59 Creatinine 1.14 mg/dL (0.55-1.02) H 04/27/24 05:59 Glucose 150 mg/dL (74-106) H 04/27/24 05:59 Phosphorus 4.1 mg/dL (2.5-4.9) 04/27/24 05:59 Magnesium 2.7 mg/dL (1.6-2.4) H 04/27/24 05:59 Total Bilirubin 0.5 mg/dL (0.2-1.0) 04/27/24 05:59 AST 35 U/L (15-37) 04/27/24 05:59 ALT 27 U/L (13-56) 04/27/24 05:59 Alkaline Phosphatase 44 U/L (45-117) L 04/27/24 05:59 Home Medications: Albuterol Sulfate [Albuterol Sulfate 0.083% Neb Soln] 2.5 mg IH PRN 11/08/23 Albuterol Sulfate [Proair Hfa] See Rx Instructions .ROUTE .COMPLEX PRN 11/08/23 Azelastine [Astelin 137MCG/Metered [place]*] 0.1 % NS DAILYPRN PRN 11/08/23 Bempedoic Acid [Nexletol] 180 mg PO DAILY 11/08/23 Estrogens, Conjugated [Premarin] 1.25 mg PO DAILY 11/08/23 Famotidine 20 mg PO BID 11/08/23 Fexofenadine HCl 180 mg PO DAILY 11/08/23 Levothyroxine [Synthroid*] 50 mcg PO DAILY 11/08/23 Montelukast [Singulair*] 10 mg PO BEDTIME 11/08/23 Sacubitril/Valsartan [Entresto 24 mg-26 mg Tablet] 24 - 26 mg PO BID 11/08/23 Sertraline [Zoloft*] 50 mg PO DAILY 11/08/23 Rivaroxaban [Xarelto*] 20 mg PO DAILY #30 tab 11/09/23 Benzonatate [Tessalon Perle*] 100 mg PO TID PRN #20 cap 04/28/24 Ipratropium Neb [Atrovent*] 0.5 mg NEB [id number] #60 amp 04/28/24 Levalbuterol [Xopenex*] 1.25 mg NEB TIDRESP #60 amp 04/28/24 predniSONE [Deltasone] 20 mg PO BID #11 tab 04/28/24 Amiodarone HCl [Pacerone] 200 mg PO DAILY 04/29/24 Dupilumab [Dupixent Pen] 300 mg IM Q15D 04/29/24 Empagliflozin [Jardiance] 10 mg PO DAILY 04/29/24 Furosemide [Lasix] 20 mg PO BIDL 04/30/24 New Medications: Ipratropium Neb [Atrovent*] 0.5 mg NEB [id number] #60 amp predniSONE [Deltasone] 20 mg PO BID #11 tab Benzonatate [Tessalon Perle*] 100 mg PO TID PRN #20 cap PRN Reason: Cough Levalbuterol [Xopenex*] 1.25 mg NEB TIDRESP #60 amp Physician Discharge Instructions: -DC IV and DC home -Follow-up with PCP in 1 to 2 weeks -Follow-up with Supervisor Inspection in 1 to 2 weeks -Please call Dr. Hernandez at [phone] if any questions regarding hospital stay -Please call nursing station at [phone] if any nursing or medication questions -Return to the emergency room if symptoms worsen Diet: AHA Activity: Fall precautions Followup: Ant Li MD [ACTIVE - CAN ADMIT] - 1-2 Weeks
== END 2024-05-01 11:52 | disposition home or self-care (01) | DRG 189 ==
LOC: ER 13:51 → ERHOLD 20:18 → 2ND 22:35
PROVIDERS: ADMIT Hospitalist; ATTEND Internal Medicine
PROC: 5A09457 Assistance with Respiratory Ventilation, 24-96 Consecutive Hours, Continuous Positive Airway Pressure (ICD-10-PCS; 2024-04-26)
PROC: 4A033R1 Measurement of Arterial Saturation, Peripheral, Percutaneous Approach (ICD-10-PCS; principal; 2024-04-30)
DX: J96.01 Acute respiratory failure with hypoxia (principal); I50.32 Chronic diastolic (congestive) heart failure; J44.0 Chronic obstructive pulmonary disease with (acute) lower respiratory infection; I27.0 Primary pulmonary hypertension; J20.9 Acute bronchitis, unspecified; E87.6 Hypokalemia; I51.7 Cardiomegaly; F32.A Depression, unspecified; G47.33 Obstructive sleep apnea (adult) (pediatric); I34.0 Nonrheumatic mitral (valve) insufficiency; E03.9 Hypothyroidism, unspecified; I25.10 Atherosclerotic heart disease of native coronary artery without angina pectoris; R29.6 Repeated falls; Z88.1 Allergy status to other antibiotic agents; Z95.1 Presence of aortocoronary bypass graft; Z88.8 Allergy status to other drugs, medicaments and biological substances; Z91.81 History of falling; Z79.82 Long term (current) use of aspirin; Z99.89 Dependence on other enabling machines and devices; Z91.09 Other allergy status, other than to drugs and biological substances; Z91.012 Allergy to eggs; Z79.890 Hormone replacement therapy; Z79.899 Other long term (current) drug therapy; Z87.891 Personal history of nicotine dependence; Z91.048 Other nonmedicinal substance allergy status
CPT/HCPCS: 36415; 36600; 71046; 71275; 80048; 80053; 80076; 81003; 82805; 83735; 83880; 84100; 84443; 84484; 85025; 85610; 87040; 87804; 87811; 93005; 94640; 94660; 94760; 96365; 96366; 96368; 96375; 99285; J0696; J1644; J1940; J2919; J3475; J7050; J7512; J7605; J7608; J7614; J7644; Q9967

== ENCOUNTER 2024-05-16 18:00 | Inpatient (IN) | payer OTHER ==
[2024-05-16 18:51] LABS: PT Prothrombin Time 27.6 SECONDS (9.4-12.5); Protime INR 2.53
[2024-05-16 18:52] LABS: Absolute Basophils 0.1 K/uL (0-0.5); Absolute Eosinophils 0.1 K/uL (0-0.5); Absolute Lymphocytes (CBC) 1.4 K/uL (0.7-4.9); Absolute Monocytes 0.8 K/uL (0.1-1.3); Absolute Neutrophil 5.7 K/uL (1.8-8.0); Basophils % 1.4 % (0-1.3); Eosinophils % 1.2 % (0-4.4); Hematocrit 33.7 % (36.0-45.0); Hemoglobin 11.5 g/dL (12.0-15.0); Lymphocytes % 17.6 % (15.3-44.8); MCH 33.8 pg (27.0-35.0); MCHC 34.2 g/dL (32.0-36.0); MCV 98.7 fL (80-100); MPV 9.5 fL (7.6-11.3); Monocytes % 10.2 % (3.3-12.3); Neutrophils % 69.6 % (41.7-73.7); Nucleated Red Blood Cells % 0.1 % (0-0); Platelets 133 thou/uL (152-406); RBC Red Blood Cell Count 3.41 M/uL (3.86-4.86); Red Cell Distribution Width 14.1 % (12.1-15.2)
[2024-05-16 19:07] LABS: Albumin 2.8 g/dL (3.4-5.0); Albumin/Globulin Ratio 0.7 (1.1-1.8); Anion Gap 8.6 mEq/L (5.0-15.0); Bilirubin Direct 0.2 mg/dL (0-0.2); Bilirubin Indirect, Calculated 0.3 mg/dL (0.2-0.8); Bilirubin Total 0.5 mg/dL (0.2-1.0); Globulin 3.8 g/dL (2.3-3.5); Magnesium 2.4 mg/dL (1.6-2.4); Potassium 3.6 mEq/L (3.5-5.1); Protein, Total 6.6 g/dL (6.4-8.2); Troponin High Sensitivity 16.1 pg/mL (<58.9)
--- NOTE | 2024-05-16 19:07 | RAD REPORT ---
EXAMINATION: ONE VIEW CHEST XR CLINICAL INDICATION: Female, 78 years old.,DYSPNEA TECHNIQUE: Frontal chest projection is submitted. Examination is limited by patient positioning and t echnique. COMPARISON: 04/26/2024 FINDINGS: Patchy perihilar opacities, on the left extending to the mid to lower lung. Sequelae of CABG. Decreas ed inspiratory effort limits evaluation. No pneumothorax or sizable effusion. The heart is moderately enlarged in size. Mediastinal contours are unremarkable. IMPRESSION: Patchy central bilateral and left mid to lower lung airspace opacities, may relate to pulmonary edema . Moderate cardiomegaly. Underlying pneumonia would be difficult to exclude.
[2024-05-16] MEDS ORDERED: FUROSEMIDE 40 MG/4 ML VIAL ONE (19:12)
[2024-05-16] MEDS ORDERED: IPRATROPIUM BROM 0.5MG/2.5ML NEB PRN (19:24)
[2024-05-16] MEDS ORDERED: ALBUTEROL 2.5 MG/3 ML NEB SOL NEB PRN (19:24)
--- NOTE | 2024-05-16 19:24 | ER ---
Nurse's Notes [facility] Name: Christal Krishnamurthy Age: 78 yrs Sex: Female : 1945 Arrival Date: 05/16/2024 Time: 18:00 Bed 8 Private MD: Diagnosis: CHF exacerbation, dyspnea Presentation: 05/16 18:21 Chief complaint: EMS states: patient called for shortness of breath, was on NC 1lpm and ko1 sats were 87%, placed on 3lpm and sats came up to 97%. Coronavirus screen: At this time, the client does not indicate any symptoms associated with coronavirus-19. Ebola Screen: No symptoms or risks identified at this time. Initial Sepsis Screen: Does the patient meet any 2 criteria? No. Patient's initial sepsis screen is negative. Does the patient have a suspected source of infection? No. Patient's initial sepsis screen is negative. Risk Assessment: Do you want to hurt yourself or someone else? Patient reports no desire to harm self or others. Onset of symptoms was May 16, 2024. 18:21 Method Of Arrival: EMS: [facility] ko1 18:21 Acuity: ARETHA 3 ko1 18:21 Care prior to arrival: Oxygen administered. via nasal cannula. ko1 Triage Assessment: 18:23 General: Appears in no apparent distress. Behavior is calm, cooperative, appropriate ko1 for age. Pain: Denies pain. EENT: No deficits noted. Neuro: No deficits noted. Cardiovascular: Reports shortness of breath. Respiratory: Reports shortness of breath at rest on exertion Onset: The symptoms/episode began/occurred today, the patient has moderate shortness of breath. GI: No deficits noted. No signs and/or symptoms were reported involving the gastrointestinal system. : No deficits noted. No signs and/or symptoms were reported regarding the genitourinary system. Derm: No deficits noted. No signs and/or symptoms reported regarding the dermatologic system. Musculoskeletal: No deficits noted. No signs and/or symptoms reported regarding the musculoskeletal system. Historical: - Allergies: 18:23 Adhesives; ko1 18:23 Amoxicillin; ko1 18:23 Antihistamine with decongestant; ko1 18:23 Cyanoacrylates; ko1 18:23 Eggs; ko1 18:23 Nexium; ko1 18:23 Levaquin; ko1 18:23 PENICILLINS; ko1 18:23 Wheat/glutens; ko1 18:23 wine; ko1 - PMHx: 18:23 Asthma; Congestive heart failure; pulmonary HTN (Congestive heart fa); ko1 - PSHx: 18:23 back; heart bypass; ko1 - Immunization history:: Adult Immunizations up to date. - Infectious Disease History:: Denies. - Social history:: Smoking status: Patient denies any tobacco usage or history of. Screenin:47 [facility] ED Fall Risk Assessment (Adult) History of falling in the last 3 months, ko1 including since admission No falls in past 3 months (0 pts) Confusion or Disorientation No (0 pts) Intoxicated or Sedated No (0 pts) Impaired Gait No (0 pts) Mobility Assist Device Used No (0 pt) Altered Elimination No (0 pt) Score/Fall Risk Level 0 - 2 = Low Risk Oriented to surroundings, Maintained a safe environment, Educated pt \T\ family on fall prevention, incl call for assistance when getting out of bed, Assessed \T\ reinforced patient's understanding of fall precautions, Hourly rounding (assess needs \T\ fall precautionary measures) done. Abuse screen: Denies threats or abuse. Denies injuries from another. Nutritional screening: No deficits noted. Tuberculosis screening: No symptoms or risk factors identified. Assessment: 18:47 Cardiovascular: Rhythm is regular. Respiratory: Airway is patent Respiratory effort is ko1 even, unlabored, Breath sounds are diminished bilaterally. Vital Signs: 18:11 BP 113 / 62; Pulse 48; Resp 19 S; Temp 98(O); Pulse Ox 96% on 2 lpm NC; aa5 19:10 BP 134 / 67; Pulse 46; Resp 15; Pulse Ox 99% on 2 lpm NC; al5 19:19 BP 100 / 84; Pulse 47; Resp 15; Pulse Ox 99% on R/A; al5 20:00 BP 118 / 68; Pulse 46; Resp 15; Pulse Ox 98% on R/A; al5 21:00 BP 117 / 79; Pulse 48; Resp 16; Pulse Ox 96% on R/A; al5 ED Course: 18:08 Patient arrived in ED. ko1 18:09 Bere Renteria RN is Primary Nurse. ko1 18:12 Kwesi Archer MD is Attending Physician. sp3 18:23 Triage completed. ko1 18:23 Arm band placed on right wrist. Patient placed in an exam room, on a stretcher, on ko1 oxygen, on shelter monitor, on pulse oximetry, Patient notified of wait time. 18:39 Inserted saline lock: 20 gauge in left antecubital area, using aseptic technique. Blood aa5 collected. Flushed with 10 mL NS. 18:47 Patient has correct armband on for positive identification. Allergy band placed. Placed ko1 in gown. Bed in low position. Call light in reach. Side rails up X2. Provided Education on: labs. Client placed on continuous cardiac and pulse oximetry monitoring. NIBP monitoring applied. shelter monitor on. Door closed. Noise minimized. Lights dimmed. Warm blanket given. Pillow given. 18:50 EKG done, by ED staff, reviewed by Kwesi Archer MD. aa5 19:04 XRAY Chest (1 view) In Process Unspecified. EDMS 19:23 Prince Caballero MD is Hospitalizing Provider. sp3 21:49 No provider procedures requiring assistance completed. Patient admitted, IV remains in al5 place. Administered Medications: 19:33 Drug: Furosemide IVP 40 mg IVP once; give over 2 minutes Route: IVP; Site: left dd2 antecubital; 21:50 Follow up: Response: No adverse reaction al5 Medication: 21:49 VIS not applicable for this client. al5 Outcome: 19:23 Decision to Hospitalize by Provider. sp3 21:50 Admitted to Med/surg accompanied by tech, via stretcher, room 404, with oxygen, with al5 chart, 21:50 Condition: stable 21:50 Instructed on the need for admit, 21:50 Patient left the ED. al5 Signatures: Dispatcher [employer] EDMS Saritha Bills, RN RN aa5 Kwesi Archer MD MD sp3 Bere Renteria RN RN ko1 Catrina Santos RN RN al5 JASIEL PLUMMER RN RN dd2
--- NOTE | 2024-05-16 19:24 | EDPHYS ---
Physician Documentation [facility] Name: Christal Krishnamurthy Age: 78 yrs Sex: Female : 1945 Arrival Date: 05/16/2024 Time: 18:00 Bed 8 Private MD: ED Physician Kwesi Archer HPI: 05/16 18:57 This 78 yrs old Female presents to ER via EMS with complaints of Shortness Of Breath. sp3 18:57 78-year-old female with a history of pulmonary hypertension, CHF, asthma with recent sp3 admission for CHF exacerbation approximately 2 weeks ago now presents again for which she describes as fluid overload and difficulty breathing due to CHF. She denies any chest pain, fever, cough, headache, abdominal pain, vomit, diarrhea, syncope, near syncope, bleeding, rash, travel history, known sick contacts, prolonged immobilization, or any other signs or symptoms on ROS at this time.. Historical: - Allergies: 18:23 Adhesives; ko1 18:23 Amoxicillin; ko1 18:23 Antihistamine with decongestant; ko1 18:23 Cyanoacrylates; ko1 18:23 Eggs; ko1 18:23 Nexium; ko1 18:23 Levaquin; ko1 18:23 PENICILLINS; ko1 18:23 Wheat/glutens; ko1 18:23 wine; ko1 - PMHx: 18:23 Asthma; Congestive heart failure; pulmonary HTN (Congestive heart fa); ko1 - PSHx: 18:23 back; heart bypass; ko1 - Immunization history:: Adult Immunizations up to date. - Infectious Disease History:: Denies. - Social history:: Smoking status: Patient denies any tobacco usage or history of. ROS: 18:59 Constitutional: Negative for fever, chills, and weight loss, Eyes: Negative for injury, sp3 pain, redness, and discharge, Neck: Negative for injury, pain, and swelling, Cardiovascular: Negative for chest pain, palpitations, and edema, Back: Negative for injury and pain, MS/Extremity: Negative for injury and deformity, Skin: Negative for injury, rash, and discoloration, Neuro: Negative for headache, weakness, numbness, tingling, and seizure, Psych: Negative for depression, anxiety, suicide ideation, homicidal ideation, and hallucinations, Allergy/Immunology: Negative for hives, rash, and allergies, Endocrine: Negative for neck swelling, polydipsia, polyuria, polyphagia, and marked weight changes, 18:59 All other systems are negative, Exam: 18:58 Constitutional: This is a well developed, well nourished patient who is awake, alert, sp3 and in no acute distress. Head/Face: Normocephalic, atraumatic. Eyes: Pupils equal round and reactive to light, extra-ocular motions intact. Lids and lashes normal. Conjunctiva and sclera are non-icteric and not injected. Cornea within normal limits. Periorbital areas with no swelling, redness, or edema. Neck: Trachea midline, no thyromegaly or masses palpated, and no cervical lymphadenopathy. Supple, full range of motion without nuchal rigidity, or vertebral point tenderness. No Meningismus. Chest/axilla: Normal chest wall appearance and motion. Nontender with no deformity. No lesions are appreciated. Abdomen/GI: Soft, non-tender, with normal bowel sounds. No distension or tympany. No guarding or rebound. No evidence of tenderness throughout. Skin: Warm, dry with normal turgor. Normal color with no rashes, no lesions, and no evidence of cellulitis. Neuro: Awake and alert, GCS 15, oriented to person, place, time, and situation. Cranial nerves II-XII grossly intact. Motor strength 5/5 in all extremities. Sensory grossly intact. Cerebellar exam normal. Normal gait. 18:58 Cardiovascular: Exam negative for Rate: bradycardic, 18:58 Respiratory: Rales noted bilaterally. Body habitus and obesity limit exam., 18:59 ECG was reviewed by the Attending Physician. EKG demonstrates sinus bradycardia at 52 sp3 bpm with a first-degree AV block with AK interval 204, occasional ectopy, leftward axis and poor R wave progression with nonspecific diffuse ST/T changes without evidence of acute ischemia. Vital Signs: 18:11 BP 113 / 62; Pulse 48; Resp 19 S; Temp 98(O); Pulse Ox 96% on 2 lpm NC; aa5 19:10 BP 134 / 67; Pulse 46; Resp 15; Pulse Ox 99% on 2 lpm NC; al5 19:19 BP 100 / 84; Pulse 47; Resp 15; Pulse Ox 99% on R/A; al5 20:00 BP 118 / 68; Pulse 46; Resp 15; Pulse Ox 98% on R/A; al5 21:00 BP 117 / 79; Pulse 48; Resp 16; Pulse Ox 96% on R/A; al5 MDM: 18:23 Medical Screening Exam initiated sp3 18:59 Data reviewed: vital signs, nurses notes, old medical records, lab test result(s), EKG, sp3 radiologic studies. ED course: 78-year-old female with shortness of breath. Differential diagnosis include CHF exacerbation, acute coronary syndrome, pneumonia, bronchitis, viral illness, influenza, COVID-19, among others. Probable diagnosis is CHF exacerbation. Workup will include EKG, chest x-ray, general labs including BNP and swabs. Disposition pending workup and patient course with possible Lasix and discharge versus admission.. 05/16 18:23 Order name: Basic Metabolic Panel; Complete Time: 19:08 sp3 05/16 18:23 Order name: CBC with Diff; Complete Time: 19:08 sp3 05/16 18:23 Order name: LFT's; Complete Time: 19:08 sp3 05/16 18:23 Order name: Magnesium; Complete Time: 19:08 sp3 05/16 18:23 Order name: NT PRO-BNP; Complete Time: 19:08 sp3 05/16 18:23 Order name: PT-INR; Complete Time: 19:08 sp3 05/16 18:23 Order name: Troponin HS; Complete Time: 19:08 sp3 05/16 19:00 Order name: Flu sp3 05/16 19:00 Order name: SARS RAPID sp3 05/16 19:29 Order name: Lactate w/ 2H reflex if indic. EDMS 05/16 19:29 Order name: Magnesium EDMS 05/16 19:29 Order name: NT PRO-BNP EDMS 05/16 19:29 Order name: Phosphorus EDMS 05/16 19:29 Order name: Protime (+INR) EDMS 05/16 19:29 Order name: PTT, Activated Partial Thromb EDMS 05/16 19:29 Order name: Urinalysis w/ reflexes EDMS 05/16 19:29 Order name: Basic Metabolic Panel EDMS 05/16 19:29 Order name: Basic Metabolic Panel EDMS 05/16 19:29 Order name: CBC with Automated Diff EDMS 05/16 19:29 Order name: CBC with Automated Diff EDMS 05/16 19:29 Order name: Lipid Profile EDMS 05/16 19:29 Order name: Lipid Profile EDMS 05/16 19:29 Order name: Troponin High Sensitivity EDMS 05/16 19:29 Order name: Troponin High Sensitivity EDMS 05/16 19:29 Order name: Troponin High Sensitivity EDMS 05/16 19:29 Order name: Troponin High Sensitivity EDMS 05/16 18:23 Order name: XRAY Chest (1 view); Complete Time: 19:08 sp3 05/16 18:23 Order name: Cardiac monitoring; Complete Time: 18:32 sp3 05/16 18:23 Order name: EKG - Nurse/Tech; Complete Time: 18:47 sp3 05/16 18:23 Order name: IV Saline Lock; Complete Time: 18:39 sp3 05/16 18:23 Order name: Labs collected and sent; Complete Time: 18:39 sp3 05/16 18:23 Order name: O2 Per Protocol; Complete Time: 18:32 sp3 05/16 18:23 Order name: O2 Sat Monitoring; Complete Time: 18:32 sp3 Administered Medications: 19:33 Drug: Furosemide IVP 40 mg IVP once; give over 2 minutes Route: IVP; Site: left dd2 antecubital; 21:50 Follow up: Response: No adverse reaction al5 Disposition Summary: 05/16/24 19:23 Hospitalization Ordered Notes: Hospitalization Status: Observation sp3 Provider: Prince Federico sp3 Location: Telemetry/MedSurg (observation) sp3 Condition: Stable sp3 Problem: an acute exacerbation sp3 Symptoms: have worsened sp3 Bed/Room Type: Standard sp3 Room Assignment: 404(05/16/24 19:55) [facility] Diagnosis - CHF exacerbation, dyspnea sp3 Forms: - Medication Reconciliation Form sp3 - SBAR form sp3 - Leadership Thank You Letter sp3 Signatures: Dispatcher [employer] Kwesi Dimas MD MD sp3 Bere Renteria RN RN ko1 No [facility] JASIEL PLUMMER RN RN dd2 Catrina Santos RN al5 Corrections: (The following items were deleted from the chart) 18:23 18:23 BASIC METABOLIC PANEL+C.LAB.BRZ ordered. EDMS EDMS 18:23 18:23 CBC+H.LAB.BRZ ordered. EDMS EDMS 18:23 18:23 HEPATIC FUNCTION+C.LAB.BRZ ordered. EDMS EDMS 18:23 18:23 MAGNESIUM+C.LAB.BRZ ordered. EDMS EDMS 18:23 18:23 PROBNP+C.LAB.BRZ ordered. EDMS EDMS 18:23 18:23 PROTIME (+INR)+COAG.LAB.BRZ ordered. EDMS EDMS 18:23 18:23 Troponin High Sensitivity+C.LAB.BRZ ordered. EDMS EDMS 18:24 18:24 Chest Single View+RAD.RAD.BRZ ordered. EDMS EDMS 19:55 19:23 sp3 kmf
--- NOTE | 2024-05-16 20:00 | P.HP ---
Certification for Inpatient Patient admitted to: Inpatient With expected LOS: >2 Midnights Practitioner: I am a practitioner with admitting privileges, knowledge of patient current condition, hospital course, and medical plan of care. Services: Services provided to patient in accordance with Admission requirements found in Title 42 Section 412.3 of the Code of Federal Regulations Patient History Date of Service: 05/16/24 Reason for admission: Acute respiratory failure, CHF exacerbation History of Present Illness: Patient is a 78-year-old female with a known past medical history of atrial fibrillation on Xarelto, diastolic CHF, COPD, obstructive sleep apnea on CPAP at night. She also uses oxygen intermittently at home. She is being admitted after she presented with worsening shortness of breath for the past few days. Patient is accompanied by her . She states that she has been running out of air at home. Denies lower extremity edema. Patient arrived in the ER slightly bradycardic with a heart rate in the 40s. She also has borderline blood pressure with SBP in the low 100. Her mental status is at baseline. Workup in the ER revealed a mildly elevated creatinine at 1.38. She has a BNP of 1 of 5000. Her chest x-ray was concerning for pulmonary edema. During her last admission, she was taken off amiodarone and placed on beta- blockers. Patient follows up with [facility]ology. Allergies 2-octyl cyanoacrylate [octyl 2-cyanoacrylate] Allergy (Verified 04/09/12 09:07) Anaphylaxis amoxicillin [Amoxicillin] Allergy (Verified 04/09/12 09:07) Rash esomeprazole mag [From Nexium] Allergy (Verified 04/09/12 09:02) Anaphylaxis wheat Allergy (Verified 04/09/12 09:07) Anaphylaxis Antihistamines - Alkylamine Adverse Reaction (Verified 04/09/12 09:07) states in ones with decongestants it aggrevates her heart levofloxacin [From Levaquin] Adverse Reaction (Verified 04/09/12 09:07) stomach cramps metronidazole Adverse Reaction (Verified 04/09/12 09:07) stomach cramps rosuvastatin calcium [From Crestor] Adverse Reaction (Verified 04/09/12 09:07) weakness Home Medications: Albuterol Sulfate [Albuterol Sulfate 0.083% Neb Soln] 2.5 mg IH PRN 11/08/23 Albuterol Sulfate [Proair Hfa] See Rx Instructions .ROUTE .COMPLEX PRN 11/08/23 Azelastine [Astelin 137MCG/Metered [place]*] 0.1 % NS DAILYPRN PRN 11/08/23 Bempedoic Acid [Nexletol] 180 mg PO DAILY 11/08/23 Estrogens, Conjugated [Premarin] 1.25 mg PO DAILY 11/08/23 Famotidine 20 mg PO BID 11/08/23 Fexofenadine HCl 180 mg PO DAILY 11/08/23 Levothyroxine [Synthroid*] 50 mcg PO DAILY 11/08/23 Montelukast [Singulair*] 10 mg PO BEDTIME 11/08/23 Sacubitril/Valsartan [Entresto 24 mg-26 mg Tablet] 24 - 26 mg PO BID 11/08/23 Sertraline [Zoloft*] 50 mg PO DAILY 11/08/23 Rivaroxaban [Xarelto*] 20 mg PO DAILY #30 tab 11/09/23 Benzonatate [Tessalon Perle*] 100 mg PO TID PRN #20 cap 04/28/24 Ipratropium Neb [Atrovent*] 0.5 mg NEB [id number] #60 amp 04/28/24 Levalbuterol [Xopenex*] 1.25 mg NEB TIDRESP #60 amp 04/28/24 predniSONE [Deltasone] 20 mg PO BID #11 tab 04/28/24 Amiodarone HCl [Pacerone] 200 mg PO DAILY 04/29/24 Dupilumab [Dupixent Pen] 300 mg IM Q15D 04/29/24 Empagliflozin [Jardiance] 10 mg PO DAILY 04/29/24 Furosemide [Lasix] 20 mg PO BIDL 04/30/24 - Past Medical/Surgical History Diabetic: No -: OA -: DJD -: chronic low back pain -: Depression -: History of falls -: Asthma -: WINNIE -: Chronic lung disease on home 02 prn and HS -: Hypothyroidism -: CHF -: chronic pulm HTN on home oxygen 1 L at bedtime -: CAD s/p CABG -: X4 Back surgeries -: Hystertectomy -: Knee scraping of deposits Psychosocial/ Personal History: , retired, good family support, lives in a 2 story home - Social History Alcohol use: No CD- Drugs: No Caffeine use: Yes Physical Examination - Physical Exam General: Acute distress HEENT: Atraumatic, Normocephalic Respiratory: Clear to auscultation bilaterally, Normal air movement Cardiovascular: Regular rate/rhythm, Normal S1 S2, Other (Bradycardic. No edema appreciated in the lower extremities) Neurological: Normal speech - Studies Laboratory Data (last 24 hrs) 05/16/24 05/16/24 05/16/24 18:38 18:38 18:38 WBC 8.20 Hgb 11.5 L Hct 33.7 L Plt Count 133 L PT 27.6 H INR 2.53 Sodium 140 Potassium 3.6 BUN 24 H Creatinine 1.38 H Glucose 104 Magnesium 2.4 Total Bilirubin 0.5 AST 67 H ALT 32 Alkaline Phosphatase 41 L Assessment and Plan - Problems (Diagnosis) (1) Acute respiratory failure Current Visit: Yes Status: Acute (2) Acute on chronic diastolic CHF (congestive heart failure) Current Visit: Yes Status: Acute (3) Acute kidney injury Current Visit: Yes Status: Acute (4) Atrial fibrillation Current Visit: No Status: Acute (5) CAD (coronary artery disease) of artery bypass graft Current Visit: No Status: Acute (6) DJD (degenerative joint disease) Current Visit: No Status: Acute (7) WINNIE on CPAP Current Visit: No Status: Acute (8) Pulmonary hypertension Current Visit: No Status: Acute (9) Hypothyroidism Current Visit: No Status: Chronic - Plan Assessment Patient is a 78-year-old female with a past medical history of coronary disease status post CABG, atrial fibrillation on Xarelto, chronic diastolic CHF and COPD. She is being admitted for decompensated CHF after she presented with worsening shortness of breath. Initial BNP is more than 5000. Patient has evidence of pulmonary edema on chest imaging. Acute respiratory failure Acute on chronic diastolic CHF Pulmonary hypertension PVCs Bradycardia Borderline blood pressure COPD Obstructive sleep apnea Coronary artery disease status post CABG Atrial fibrillation Hypothyroidism AGUS Plan: Patient's shortness of breath is of multifactorial etiology as evidenced by medical issues above Pulmonary embolism unlikely considering patient's INR of 2.53. She is also on Xarelto. Will admit inpatient with telemetry Start scheduled IV Lasix 40 mg twice daily Monitor ins and out Repeat 2D echo Will hold beta-blockers due to bradycardia Check mag and Phos due to PVCs Replete electrolytes if needed Cardiology consulted Resume Xarelto for DVT prophylaxis Patient is full code - Advance Directives Does patient have a Living Will: No Does patient have a Durable POA for Healthcare: No
[2024-05-16] MEDS: FUROSEMIDE 40 MG/4 ML VIAL IV SCH (20:01)
[2024-05-16 20:05] LABS: SARS-CoV-2 Antigen CONTROL BLUE LINE VIS/BG OK; SARS-CoV-2 Antigen Rapid Res Negative (Negative)
[2024-05-17 00:03] LABS: Magnesium 2.5 mg/dL (1.6-2.4); Phosphorus 3.8 mg/dL (2.5-4.9)
[2024-05-17 00:14] LABS: Renal Epithelial <5 /HPF (None Seen); Specific Gravity 1.007 (1.005-1.030); Sqamous Epithelial <5 /HPF (None Seen); Urine Bacteria None Seen /HPF (<20); Urine Bilirubin NEGATIVE (Negative); Urine Blood Negative (Negative); Urine Clarity Turbid (Clear); Urine Color Colorless (Yellow); Urine Culture Reflex Order NOT NEEDED; Urine Glucose 3+ (Negative); Urine Ketones NEGATIVE (Negative); Urine Microscopic Reflex YN ORDER UMIC; Urine Nitrite NEGATIVE (Negative); Urine Protein NEGATIVE (Negative); Urine RBC None Seen /HPF (None Seen); Urine Urobilinogen Normal (Normal); Urine WBC <5 /HPF (<5)
[2024-05-17] MEDS: HEPARIN 5000 UNIT/ML 1 ML VIAL SQ SCH (01:50)
[2024-05-17] MEDS: ONDANSETRON 4 MG/2 ML VIAL IV PRN (02:19)
[2024-05-17 02:51] VITALS: BMI 26.7
[2024-05-17 05:51] LABS: Absolute Eosinophils 0.1 K/uL (0-0.5); Absolute Lymphocytes (CBC) 2.5 K/uL (0.7-4.9); Absolute Monocytes 0.8 K/uL (0.1-1.3); Absolute Neutrophil 4.3 K/uL (1.8-8.0); Basophils % 0.5 % (0-1.3); Eosinophils % 1.4 % (0-4.4); Hematocrit 33.2 % (36.0-45.0); Hemoglobin 11.1 g/dL (12.0-15.0); Lymphocytes % 32.2 % (15.3-44.8); MCH 33.5 pg (27.0-35.0); MCHC 33.4 g/dL (32.0-36.0); MCV 100.2 fL (80-100); MPV 9.5 fL (7.6-11.3); Monocytes % 10.6 % (3.3-12.3); Neutrophils % 55.3 % (41.7-73.7); Platelets 127 thou/uL (152-406); RBC Red Blood Cell Count 3.31 M/uL (3.86-4.86); Red Cell Distribution Width 14.1 % (12.1-15.2)
[2024-05-17 06:02] LABS: Anion Gap 8.2 mEq/L (5.0-15.0); Potassium 3.2 mEq/L (3.5-5.1)
[2024-05-17] MEDS: POTASSIUM CL SA 10 MEQ TAB PO ONE (08:43)
[2024-05-17] MEDS: RIVAROXABAN 20 MG TABLET PO SCH (08:43)
[2024-05-17] MEDS: SACUBITRIL/VALSARTAN 24/26 MG TAB PO SCH (08:44)
--- NOTE | 2024-05-17 09:22 | P.DS ---
Admission Date: 05/16/24 Discharge Date: 05/17/24 Disposition: ROUTINE DISCHARGE Discharge Condition: GOOD Reason for Admission: Acute respiratory failure, CHF exacerbation Brief History of Present Illness: Patient is a 78-year-old female with a past medical history of coronary disease status post CABG, atrial fibrillation on Xarelto, chronic diastolic CHF and COPD on home oxygen. She presented to emergency room for worsening shortness of breath for a couple of days and was admitted for decompensated CHF . Initial BNP is more than 5000. Patient has evidence of pulmonary edema on chest x-ray. Hospital Course: She responded very well to IV furosemide 40 mg IV, her symptoms significant improved the following day. She was feeling good enough to go home. Serial troponin normal x 3, serum creatinine stable at 24/.1 after diuresis, mild hypokalemia with potassium 3.2, oral potassium supplement was given. Telemetry showed sinus bradycardia in 40s to 50s overnight. She is being discharged home. Her furosemide will be increased to 20 mg twice daily to 30 mg twice daily with potassium supplement Acute respiratory failure due to #2 Acute on chronic diastolic CHF Transthoracic echocardiogram in May 2023 reviewed, borderline left ventricular ejection fraction of 40 to 45%, moderate diastolic dysfunction Stable AGUS due to diuresis Mild hypokalemia due to furosemide Asymptomatic bradycardia History of paroxysmal atrial fibrillation on Xarelto Stable COPD Obstructive sleep apnea Stable coronary artery disease status post CABG Vital Signs/Physical Exam: Temp Pulse Resp BP Pulse Ox 97.9 F 45 L 18 124/62 97 05/17/24 08:00 05/17/24 08:00 05/17/24 08:00 05/17/24 08:00 05/17/24 08:00 Other Physical/Emotional Findings: - Physical Exam. General: Chronic ill- looking, emaciated, in no apparent distress,. HEENT: Normocephalic, atraumatic, nonicteric sclera, nonanemic conjunctive. Neck: Supple, without JVD or goiter or thyroid mass. Respiratory: Normal breathing effort, clear to auscultation bilaterally, no crackles no wheezing or rhonchi. Cardiovascular: Slow regular rate and rhythm, S1, S2 normal, no murmur no gallop. Gastrointestinal: Normal bowel sounds, nondistended, nontender, No ascites, , No masses, no hepatosplenomegaly. Extremities : No clubbing, No peripheral edema, full range of motion, no deformity, no muscle atrophy. Integumentary: No rashes, petechia, suspected lesions. Lymphatics: No axilla or cervical lymphadenopathy. Neurology; alert awake oriented x3, no focal neurologic deficit, normal affection . mood and behavior. Laboratory Data at Discharge: WBC 7.70 thou/uL (4.3-10.9) 05/17/24 05:14 Hgb 11.1 g/dL (12.0-15.0) L 05/17/24 05:14 Hct 33.2 % (36.0-45.0) L 05/17/24 05:14 Plt Count 127 thou/uL (152-406) L 05/17/24 05:14 PT Cancelled 05/16/24 23:00 INR Cancelled 05/16/24 23:00 APTT 44.4 SECONDS (24.3-36.9) H 05/16/24 23:00 Sodium 140 mEq/L (136-145) 05/17/24 05:14 Potassium 3.2 mEq/L (3.5-5.1) L 05/17/24 05:14 BUN 24 mg/dL (7-18) H 05/17/24 05:14 Creatinine 1.13 mg/dL (0.55-1.02) H 05/17/24 05:14 Glucose 101 mg/dL (74-106) 05/17/24 05:14 Phosphorus 3.8 mg/dL (2.5-4.9) 05/16/24 23:00 Magnesium 2.5 mg/dL (1.6-2.4) H 05/16/24 23:00 Total Bilirubin 0.5 mg/dL (0.2-1.0) 05/16/24 18:38 AST 67 U/L (15-37) H 05/16/24 18:38 ALT 32 U/L (13-56) 05/16/24 18:38 Alkaline Phosphatase 41 U/L (45-117) L 05/16/24 18:38 Triglycerides 96 mg/dL (<150) 05/17/24 05:14 Cholesterol 131 mg/dL (<200) 05/17/24 05:14 HDL Cholesterol 41 mg/dL (40-60) 05/17/24 05:14 Cholesterol/HDL Ratio 3.20 05/17/24 05:14 Home Medications: RX: Azelastine [Astelin 137MCG/Metered [place]*] 0.1 % NS DAILYPRN PRN 11/08/23 RX: Bempedoic Acid [Nexletol] 180 mg PO DAILY 11/08/23 RX: Estrogens, Conjugated [Premarin] 1.25 mg PO DAILY 11/08/23 RX: Famotidine 20 mg PO BID 11/08/23 RX: Fexofenadine HCl 180 mg PO DAILY 11/08/23 RX: Levothyroxine [Synthroid*] 50 mcg PO DAILY 11/08/23 RX: Montelukast [Singulair*] 10 mg PO BEDTIME 11/08/23 RX: Sacubitril/Valsartan [Entresto 24 mg-26 mg Tablet] 24 - 26 mg PO BID 11/08/23 RX: Sertraline [Zoloft*] 50 mg PO DAILY 11/08/23 RX: Rivaroxaban [Xarelto*] 20 mg PO DAILY #30 tab 11/09/23 RX: Benzonatate [Tessalon Perle*] 100 mg PO TID PRN #20 cap 04/28/24 RX: Amiodarone HCl [Pacerone] 200 mg PO DAILY 04/29/24 RX: Dupilumab [Dupixent Pen] 300 mg IM Q15D 04/29/24 RX: Empagliflozin [Jardiance] 10 mg PO DAILY 04/29/24 Potassium Chloride [K-Dur] 20 meq PO BID #60 05/17/24 RX: Furosemide [Lasix*] 30 mg PO BIDL #60 tab 05/17/24 RX: Ipratropium Neb [Atrovent*] 0.5 mg NEB [id number] PRN 05/17/24 RX: Levalbuterol [Xopenex*] 1.25 mg NEB TIDRESP PRN 05/17/24 New Medications: Potassium Chloride [K-Dur] 20 meq PO BID #60 RX: Furosemide [Lasix*] 30 mg PO BIDL #60 tab Diet: Low sodium Activity: Ad sam Followup: Ant Li MD [Primary Care Provider] -
--- NOTE | 2024-05-17 11:06 | P.PN ---
Subjective Date of Service: 05/17/24 Chief Complaint: Acute respiratory failure, CHF exacerbation Subjective: Improving Patient states that she is feeling much better after diuresis on IV furosemide, requesting to be discharged today. Review of Systems Other: Consitutional; fever(-), chills (-), rigor(-), night sweat(-), unintentional weight loss(-), malaise (-) HEENT; diplopia (-), rhinorrhea (-), epistaxis (-), otorrhea (-), otalgia (-) Respiratory; shortness of breath (-), wheezing (-), cough (-), sputum (-), pleuritic chest pain (-) Cardiovascular; chest pain (-), peripheral edema (-), paroxysmal nocturnal dyspnea (-), orthopnea (-) Gastrointestinal; nausea (-), vomiting (-), abdominal pain (-), diarrhea (-), constipation (-), melena (-), hematochezia (-) Genitourinary; urinary frequency (-), dysuria (-), urgency (-), flank pain (-), gross hematuria (-), incontinence (-) Skin; rash (-), 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 General: Chronic ill- looking, emaciated, in no apparent distress,. HEENT: Normocephalic, atraumatic, nonicteric sclera, nonanemic conjunctive. Neck: Supple, without JVD or goiter or thyroid mass. Respiratory: Normal breathing effort, clear to auscultation bilaterally, no crackles no wheezing or rhonchi. Cardiovascular: Slow regular rate and rhythm, S1, S2 normal, no murmur no gallop. Gastrointestinal: Normal bowel sounds, nondistended, nontender, No ascites, , No masses, no hepatosplenomegaly. Extremities : No clubbing, No peripheral edema, full range of motion, no deformity, no muscle atrophy. Integumentary: No rashes, petechia, suspected lesions. Lymphatics: No axilla or cervical lymphadenopathy. Neurology; alert awake oriented x3, no focal neurologic deficit, normal affection . mood and behavior. - Studies Laboratory Data (last 24 hrs) 05/16/24 05/16/24 05/16/24 18:38 18:38 18:38 WBC 8.20 Hgb 11.5 L Hct 33.7 L Plt Count 133 L PT 27.6 H INR 2.53 Sodium 140 Potassium 3.6 BUN 24 H Creatinine 1.38 H Glucose 104 Magnesium 2.4 Total Bilirubin 0.5 AST 67 H ALT 32 Alkaline Phosphatase 41 L Microbiology Data (last 24 hrs): 05/16/24 19:10 Nasopharnyx Influenza Type A Antigen Screen - Final 05/16/24 19:10 Nasopharnyx Influenza Type B Antigen Screen - Final Assessment And Plan - Plan Patient is a 78-year-old female with a past medical history of coronary disease status post CABG, atrial fibrillation on Xarelto, chronic diastolic CHF and COPD on home oxygen. She presented to emergency room for worsening shortness of breath for a couple of days and was admitted for decompensated CHF . Initial BNP is more than 5000. Patient has evidence of pulmonary edema on chest x-ray. She responded very well to IV furosemide 40 mg IV, her symptoms significant improved today. She was feeling good enough and requested to go home. Serial troponin normal x 3, serum creatinine stable at 24/1.1 after diuresis, mild hypokalemia with potassium 3.2, oral potassium supplement was given. Telemetry showed sinus bradycardia in 40s to 50s overnight. Discharge ordered, patient heart rate dropped and hypotensive, will hold discharge, stopped IV furosemide, cardiac monitoring, will await cardiology evaluation for possible sick sinus syndrome. Acute respiratory failure due to #2 Acute on chronic diastolic CHF Transthoracic echocardiogram in May 2023 reviewed, borderline left ventricular ejection fraction of 40 to 45%, moderate diastolic dysfunction Stable AGUS due to diuresis Mild hypokalemia due to furosemide Sinus bradycardia History of paroxysmal atrial fibrillation on Xarelto Stable COPD Obstructive sleep apnea Stable coronary artery disease status post CABG
[2024-05-17] MEDS ORDERED: BENZONATATE 100 MG CAP PO PRN (16:42)
[2024-05-17] MEDS: FUROSEMIDE 20 MG TABLET PO SCH (17:01)
[2024-05-17] MEDS: POTASSIUM CL SA 10 MEQ TAB PO SCH (20:57)
[2024-05-18 05:12] VITALS: O2SAT 97
[2024-05-18 06:34] LABS: Anion Gap 6.8 mEq/L (5.0-15.0); Potassium 3.8 mEq/L (3.5-5.1)
[2024-05-18] MEDS: Bempedoic Acid [Nexletol] 180 MG Tablet PO SCH (08:01)
[2024-05-18] MEDS: ESTROGENS CONJUGATED 1.25 MG PO SCH (08:01)
[2024-05-18] MEDS: FAMOTIDINE 20 MG TAB PO SCH (08:02)
[2024-05-18] MEDS: SERTRALINE HCL 50 MG TAB PO SCH (08:02)
[2024-05-18] MEDS: LEVOTHYROXINE SOD 0.05 MG TABLET PO SCH (08:03)
[2024-05-18] MEDS: POTASSIUM CL SA 10 MEQ TAB PO ONE (08:03)
--- NOTE | 2024-05-18 09:10 | P.DS ---
Admission Date: 05/17/24 Discharge Date: 05/18/24 Disposition: ROUTINE DISCHARGE Discharge Condition: GOOD Reason for Admission: Acute respiratory failure, CHF exacerbation Brief History of Present Illness: Patient is a 78-year-old female with a past medical history of coronary disease status post CABG, atrial fibrillation on Xarelto, chronic diastolic CHF and COPD on home oxygen. She presented to emergency room for worsening shortness of breath for a couple of days and was admitted for decompensated CHF . Initial BNP is more than 5000. Patient has evidence of pulmonary edema on chest x-ray. Hospital Course: She responded very well to IV furosemide 40 mg IV, her symptoms significant improved the following day. She was feeling good enough to go home. Serial troponin normal x 3, serum creatinine stable at 24/.1 after diuresis, mild hypokalemia with potassium 3.2, oral potassium supplement was given. She was ordered to discharged on May 17 but she developed a short episode of bradycardia and hypotension therefore discharge was canceled. She observed on telemetry the next 24-hour, no episode of syncope, Telemetry showed sinus bradycardia in 40s to 50s but no sinus pause. She was feeling better the next day. She is being discharged home. Her furosemide will be increased to 20 mg twice daily to 30 mg twice daily with potassium supplement. 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 Discharge diagnosis Acute on chronic respiratory failure due to #2 Acute on chronic diastolic CHF Transthoracic echocardiogram in May 2023 reviewed, borderline left ventricular ejection fraction of 40 to 45%, moderate diastolic dysfunction Stable AGUS due to diuresis Mild hypokalemia due to furosemide Sinus bradycardia History of paroxysmal atrial fibrillation on Xarelto Stable COPD Obstructive sleep apnea Stable coronary artery disease status post CABG Vital Signs/Physical Exam: Temp Pulse Resp BP Pulse Ox 97.9 F 50 18 135/63 97 05/18/24 04:00 05/18/24 04:00 05/18/24 04:00 05/18/24 04:00 05/18/24 04:00 Other Physical/Emotional Findings: - Physical Exam. General: Chronic ill- looking, emaciated, in no apparent distress,. HEENT: Normocephalic, atraumatic, nonicteric sclera, nonanemic conjunctive. Neck: Supple, without JVD or goiter or thyroid mass. Respiratory: Normal breathing effort, clear to auscultation bilaterally, no crackles no wheezing or rhonchi. Cardiovascular: Slow regular rate and rhythm, S1, S2 normal, no murmur no gallop. Gastrointestinal: Normal bowel sounds, nondistended, nontender, No ascites, , No masses, no hepatosplenomegaly. Extremities : No clubbing, No peripheral edema, full range of motion, no deformity, no muscle atrophy. Integumentary: No rashes, petechia, suspected lesions. Lymphatics: No axilla or cervical lymphadenopathy. Neurology; alert awake oriented x3, no focal neurologic deficit, normal affection . mood and behavior. Laboratory Data at Discharge: WBC 7.70 thou/uL (4.3-10.9) 05/17/24 05:14 Hgb 11.1 g/dL (12.0-15.0) L 05/17/24 05:14 Hct 33.2 % (36.0-45.0) L 05/17/24 05:14 Plt Count 127 thou/uL (152-406) L 05/17/24 05:14 PT Cancelled 05/16/24 23:00 INR Cancelled 05/16/24 23:00 APTT 44.4 SECONDS (24.3-36.9) H 05/16/24 23:00 Sodium 141 mEq/L (136-145) 05/18/24 05:07 Potassium 3.8 mEq/L (3.5-5.1) 05/18/24 05:07 BUN 24 mg/dL (7-18) H 05/18/24 05:07 Creatinine 1.14 mg/dL (0.55-1.02) H 05/18/24 05:07 Glucose 103 mg/dL (74-106) 05/18/24 05:07 Phosphorus 3.8 mg/dL (2.5-4.9) 05/16/24 23:00 Magnesium 2.5 mg/dL (1.6-2.4) H 05/16/24 23:00 Total Bilirubin 0.5 mg/dL (0.2-1.0) 05/16/24 18:38 AST 67 U/L (15-37) H 05/16/24 18:38 ALT 32 U/L (13-56) 05/16/24 18:38 Alkaline Phosphatase 41 U/L (45-117) L 05/16/24 18:38 Triglycerides 96 mg/dL (<150) 05/17/24 05:14 Cholesterol 131 mg/dL (<200) 05/17/24 05:14 HDL Cholesterol 41 mg/dL (40-60) 05/17/24 05:14 Cholesterol/HDL Ratio 3.20 05/17/24 05:14 Home Medications: Azelastine [Astelin 137MCG/Metered [place]*] 0.1 % NS DAILYPRN PRN 11/08/23 Bempedoic Acid [Nexletol] 180 mg PO DAILY 11/08/23 Estrogens, Conjugated [Premarin] 1.25 mg PO DAILY 11/08/23 Famotidine 20 mg PO BID 11/08/23 Fexofenadine HCl 180 mg PO DAILY 11/08/23 Levothyroxine [Synthroid*] 50 mcg PO DAILY 11/08/23 Montelukast [Singulair*] 10 mg PO BEDTIME 11/08/23 Sacubitril/Valsartan [Entresto 24 mg-26 mg Tablet] 24 - 26 mg PO BID 11/08/23 Sertraline [Zoloft*] 50 mg PO DAILY 11/08/23 Rivaroxaban [Xarelto*] 20 mg PO DAILY #30 tab 11/09/23 Benzonatate [Tessalon Perle*] 100 mg PO TID PRN #20 cap 04/28/24 Amiodarone HCl [Pacerone] 200 mg PO DAILY 04/29/24 Dupilumab [Dupixent Pen] 300 mg IM Q15D 04/29/24 Empagliflozin [Jardiance] 10 mg PO DAILY 04/29/24 Furosemide [Lasix*] 30 mg PO BIDL #60 tab 05/17/24 Ipratropium Neb [Atrovent*] 0.5 mg NEB [id number] PRN 05/17/24 Levalbuterol [Xopenex*] 1.25 mg NEB TIDRESP PRN 05/17/24 Potassium Chloride [K-Dur] 20 meq PO BID #60 05/17/24 New Medications: Potassium Chloride [K-Dur] 20 meq PO BID #60 Furosemide [Lasix*] 30 mg PO BIDL #60 tab Diet: Low sodium Activity: Ad sam Followup: Ant Li MD [Primary Care Provider] - 1 Week
[2024-05-18 10:04] VITALS: BP 124/59; TEMP 97.8
--- NOTE | 2024-05-18 13:07 | EKG ---
Test Date: 2024-05-16 Test Time: 18:49:02 Configuration Engineer: SILKE MEASUREMENT RESULTS: Intervals: Rate: 52 [place]: 204 QRSD: 106 QT: 516 QTc: 479 [place]: P: 64 [place]: 204 QRS: -35 T: 8 INTERPRETIVE STATEMENTS: Sinus bradycardia with occasional premature ventricular complexes Left axis deviation ST & T wave abnormality, consider anterior ischemia Prolonged QT Abnormal ECG Compared to ECG 04/28/2024 13:35:51 Ventricular premature complex(es) now present Left-axis deviation now present Possible ischemia now present Prolonged QT interval now present Left anterior fascicular block no longer present ST (T wave) deviation still present Electronically Signed On 05-18-24 13:04:32 RESIDENTIAL PROGRAM COORDINATOR by Ernesto Bryant
== END 2024-05-18 10:31 | disposition home or self-care (01) | DRG 291 ==
LOC: ER 18:00 → ERHOLD 19:24 → INTOOBSV 19:24 → 4TH 21:04 → OBSVTOIN 05-17 11:07
PROVIDERS: ADMIT Internal Medicine; ATTEND Internal Medicine
DX: I50.33 Acute on chronic diastolic (congestive) heart failure (principal); J96.00 Acute respiratory failure, unspecified whether with hypoxia or hypercapnia; N17.9 Acute kidney failure, unspecified; E03.9 Hypothyroidism, unspecified; I48.0 Paroxysmal atrial fibrillation; G89.29 Other chronic pain; M54.50 Low back pain, unspecified; I49.3 Ventricular premature depolarization; E87.6 Hypokalemia; I27.20 Pulmonary hypertension, unspecified; G47.33 Obstructive sleep apnea (adult) (pediatric); J44.9 Chronic obstructive pulmonary disease, unspecified; R00.1 Bradycardia, unspecified; Z88.0 Allergy status to penicillin; Z88.1 Allergy status to other antibiotic agents; Z95.1 Presence of aortocoronary bypass graft; Z99.81 Dependence on supplemental oxygen; Z11.52 Encounter for screening for COVID-19; Z79.01 Long term (current) use of anticoagulants; Z79.52 Long term (current) use of systemic steroids; Z99.89 Dependence on other enabling machines and devices; Z91.09 Other allergy status, other than to drugs and biological substances; Z91.012 Allergy to eggs; Z91.018 Allergy to other foods; Z79.890 Hormone replacement therapy; Z79.899 Other long term (current) drug therapy; Z90.710 Acquired absence of both cervix and uterus
CPT/HCPCS: 36415; 71045; 80048; 80061; 80076; 81001; 82947; 83605; 83735; 83880; 84100; 84132; 84484; 85025; 85610; 85730; 87804; 87811; 93005; 96374; 99285; G0378; J1644; J1940; J2405

== ENCOUNTER 2024-05-20 19:51 | Inpatient (IN) | payer OTHER ==
[2024-05-20 20:39] LABS: Absolute Basophils 0.1 K/uL (0-0.5); Absolute Eosinophils 0.1 K/uL (0-0.5); Absolute Lymphocytes (CBC) 2.1 K/uL (0.7-4.9); Absolute Monocytes 0.7 K/uL (0.1-1.3); Absolute Neutrophil 3.4 K/uL (1.8-8.0); Basophils % 0.9 % (0-1.3); Eosinophils % 1.9 % (0-4.4); Hematocrit 32.8 % (36.0-45.0); Hemoglobin 11.2 g/dL (12.0-15.0); Lymphocytes % 33.8 % (15.3-44.8); MCH 34.3 pg (27.0-35.0); MCV 100.8 fL (80-100); Monocytes % 10.4 % (3.3-12.3); Platelets 160 thou/uL (152-406); RBC Red Blood Cell Count 3.26 M/uL (3.86-4.86); Red Cell Distribution Width 14.6 % (12.1-15.2)
[2024-05-20 20:46] LABS: Protime INR 3.14
[2024-05-20] MEDS ORDERED: MIDODRINE HCL 5 MG TABLET ONE (20:51)
[2024-05-20 20:59] LABS: Albumin 2.8 g/dL (3.4-5.0); Albumin/Globulin Ratio 0.7 (1.1-1.8); Anion Gap 8.1 mEq/L (5.0-15.0); Bilirubin Direct 0.3 mg/dL (0-0.2); Bilirubin Indirect, Calculated 0.3 mg/dL (0.2-0.8); Bilirubin Total 0.6 mg/dL (0.2-1.0); Globulin 3.8 g/dL (2.3-3.5); Magnesium 2.4 mg/dL (1.6-2.4); Potassium 4.1 mEq/L (3.5-5.1); Protein, Total 6.6 g/dL (6.4-8.2); Troponin High Sensitivity 16.6 pg/mL (<58.9)
--- NOTE | 2024-05-20 21:19 | RAD REPORT ---
Procedure: Chest Single View HISTORY: Syncope COMPARISON: March 2024 FINDINGS: Mild opacities left upper and right lower lobes. No significant pleural effusion noted. The heart is mildly to moderately enlarged. Post surgical changes involving the chest. IMPRESSION: Bilateral pulmonary opacities suspicious for pneumonia
--- NOTE | 2024-05-20 21:22 | RAD REPORT ---
EXAM: CT brain without contrast HISTORY: Syncope COMPARISON: None TECHNIQUE: Multiple contiguous axial images were obtained and a CT of the brain without contrast.. Sagittal and coronal reconstruction performed. Automated exposure control, adjustment of the mA and/or kV according to patient size, and/or iterative reconstruction. Unless otherwise specified, incidental f indings do not require dedicated imaging follow-up FINDINGS: An intracranial bleed is not seen Ventricles are normal caliber No extra-axial fluid collection noted Mild to moderate low-density within periventricular, deep cortical white matter likely changes second yesica to small vessel disease. Cerebral atrophy No fluid within the visualized sinuses or mastoids noted. IMPRESSION: No acute intracranial abnormality noted. If the patient continues to have symptoms to suggest an acute intracranial abnormality then MRI of th e brain would be recommended.
--- NOTE | 2024-05-20 21:34 | ER ---
Nurse's Notes [facility] Name: Christal Krishnamurthy Age: 78 yrs Sex: Female : 1945 Arrival Date: 05/20/2024 Time: 19:51 Bed 19 Private MD: Diagnosis: Symptomatic bradycardia, CHF exacerbation, syncope and collapse Presentation: 05/20 19:55 Chief complaint: EMS states: patient had a syncopal episode around 1830, her O2 sats is rg5 in 60% when we got there. 19:55 Coronavirus screen: Client denies travel out of the [place] in the last 14 days. Ebola rg5 Screen: Patient negative for fever greater than or equal to 101.5 degrees Fahrenheit, and additional compatible Ebola Virus Disease symptoms Patient denies exposure to infectious person. Patient denies travel to an Ebola-affected area in the 21 days before illness onset. No symptoms or risks identified at this time. Initial Sepsis Screen: Does the patient meet any 2 criteria? No. Patient's initial sepsis screen is negative. Does the patient have a suspected source of infection? No. Patient's initial sepsis screen is negative. Risk Assessment: Do you want to hurt yourself or someone else? Patient reports no desire to harm self or others. Onset of symptoms was May 20, 2024. Care prior to arrival: Medication(s) given: Normal saline infusion, 1000 mL, IV initiated. 18 GA, in the right antecubital area, Glucose check: 180 Oxygen administered. via a non-rebreather mask. Mechanism of Injury: Fall from standing position. 19:55 Method Of Arrival: EMS: [facility] rg5 19:55 Acuity: ARETHA 3 rg5 Triage Assessment: 19:55 General: Appears in no apparent distress. comfortable, Behavior is calm, cooperative, rg5 appropriate for age. Pain: Denies pain. EENT: No signs and/or symptoms were reported regarding the EENT system. Neuro: Level of Consciousness is awake, alert, obeys commands, Oriented to person, place, time, Reports a syncopal episode. Cardiovascular: Patient's skin is warm and dry. Respiratory: Airway is patent Trachea midline Respiratory effort is even, unlabored, Respiratory pattern is regular, symmetrical, Breath sounds are clear. GI: Abdomen is round non-distended, Abd is soft and non tender. : No signs and/or symptoms were reported regarding the genitourinary system. Derm: Skin is intact, is fragile, Skin is dry, Skin is normal, Skin temperature is warm. Musculoskeletal: Range of motion: intact in all extremities, Swelling present in right leg and left leg. Historical: - Allergies: 19:55 Adhesives; rg5 19:55 Amoxicillin; rg5 19:55 Antihistamine with decongestant; rg5 19:55 Cyanoacrylates; rg5 19:55 Eggs; rg5 19:55 Levaquin; rg5 19:55 Nexium; rg5 19:55 PENICILLINS; rg5 19:55 Wheat/glutens; rg5 19:55 wine; rg5 - PMHx: 19:55 Asthma; Congestive heart failure; pulmonary HTN (Congestive heart fa); rg5 - PSHx: 19:55 back; heart bypass; rg5 - Immunization history:: Adult Immunizations up to date. - Infectious Disease History:: Denies. - Social history:: Smoking status: Patient denies any tobacco usage or history of. Screenin:23 [facility] ED Fall Risk Assessment (Adult) History of falling in the last 3 months, rg5 including since admission Yes- single mechanical fall (1 pt) Confusion or Disorientation No (0 pts) Intoxicated or Sedated No (0 pts) Impaired Gait Yes (1 pt) Mobility Assist Device Used Yes (1 pt) Altered Elimination No (0 pt) Score/Fall Risk Level 3 or more points = High Risk Oriented to surroundings, Maintained a safe environment, Hourly rounding (assess needs \T\ fall precautionary measures) done, Used ambulatory aids as needed (educated on \T\ assisted with). Abuse screen: Denies threats or abuse. Nutritional screening: No deficits noted. Tuberculosis screening: No symptoms or risk factors identified. Assessment: 20:00 Reassessment: see triage assessment. rg5 21:23 Reassessment: Patient and/or family updated on plan of care and expected duration. Pain rg5 level reassessed. Patient is alert, oriented x 3, equal unlabored respirations, skin warm/dry/pink. Patient states feeling better. General: Appears in no apparent distress. Neuro: Level of Consciousness is awake, alert, Oriented to person, place, time. Cardiovascular: Denies chest pain. 21:25 Cardiovascular: Rhythm is sinus bradycardia. rg5 22:30 Reassessment: Patient and/or family updated on plan of care and expected duration. Pain rg5 level reassessed. Patient is alert, oriented x 3, equal unlabored respirations, skin warm/dry/pink. 23:28 Reassessment: Patient and/or family updated on plan of care and expected duration. Pain rg5 level reassessed. Patient is alert, oriented x 3, equal unlabored respirations, skin warm/dry/pink. Patient states feeling better. Vital Signs: 19:55 BP 126 / 84; Pulse 48; Resp 19; Temp 98; Pulse Ox 99% on 15 lpm Non-rebreather mask; rg5 Weight 73.94 kg; Height 5 ft. 5 in. ; Pain 0/10; 20:21 BP 126 / 84; Pulse 48; Resp 19; rg5 21:22 BP 133 / 69; Pulse 45; Resp 17; Pulse Ox 97% on 3 lpm NC; Pain 0/10; rg5 21:30 BP 136 / 66; Pulse 48; Resp 17; Pulse Ox 95% on 3 lpm NC; rg5 22:00 BP 149 / 60; Pulse 47; Resp 18; Pulse Ox 97% on 3 lpm NC; rg5 23:26 BP 159 / 72; Pulse 47; Resp 18; Pulse Ox 96% on 3 lpm NC; Pain 0/10; rg5 19:55 Body Mass Index 27.12 (73.94 kg, 165.1 cm) rg5 19:55 Pain Scale: Adult rg5 21:22 Pain Scale: Adult rg5 23:26 Pain Scale: Adult rg5 Lowell Coma Score: 21:38 Eye Response: spontaneous(4). Motor Response: obeys commands(6). Verbal Response: sp4 oriented(5). Total: 15. ED Course: 19:54 Patient arrived in ED. rv1 19:55 Arm band placed on right wrist. EKG completed in triage. Results shown to MD. rg5 20:02 Regino Page MD is Attending Physician. sp4 20:12 Bienvenido Noel, MELCHOR is Primary Nurse. rg5 20:17 Triage completed. rg5 20:27 XRAY Chest (1 view) In Process Unspecified. EDMS 20:45 EKG done, by ED staff, reviewed by Regino Page MD. sa1 20:52 CT Head Brain wo Cont In Process Unspecified. EDMS 21:23 Patient has correct armband on for positive identification. Bed in low position. Call rg5 light in reach. Side rails up X 1. Door closed. Noise minimized. Warm blanket given. Pillow given. 21:23 No provider procedures requiring assistance completed. Maintain EMS IV. Dressing rg5 intact. Site clean \T\ dry. Flushed with 10 mL NS IV is intact, Flushed right antecubital with 5 ml normal saline. 21:25 intact. rg5 21:33 Denilson Madsen MD is Hospitalizing Provider. sp4 23:26 Provided Education on: need for admit. rg5 Administered Medications: 20:38 Not Given (Physician Discretion): ns 0.9% 1000 ml IV at 75 ml/hr Per protocol; to be sp4 given as a bolus over 60 minutes 21:00 Drug: midodrine 10 mg PO once Route: PO; rg5 21:17 Follow up: Response: No adverse reaction rg5 21:49 Drug: Furosemide IVP 40 mg IVP once; give over 2 minutes Route: IVP; Site: right rg5 antecubital; 05/21 00:46 Follow up: Response: No adverse reaction rg5 Medication: 05/20 21:23 VIS not applicable for this client. rg5 Point of Care Testing: Blood Glucose: 21:26 Blood Glucose: 129 mg/dL; rg5 Ranges: Outcome: 21:33 Decision to Hospitalize by Provider. sp4 23:25 Admitted to Med/surg accompanied by tech rg5 23:25 Condition: stable 23:25 Instructed on the need for admit, 05/21 00:47 Patient left the ED. rg5 Signatures: Dispatcher [employer] EDMS Beverley Paniagua rv1 Regino Page MD MD sp4 Bienvenido Noel RN RN rg5 Sultan Feng sa1 Corrections: (The following items were deleted from the chart) 05/20 21:33 21:32 Provided Education on: post er care done. rg5 rg5 21:34 21:32 Discharged to home ambulatory, rg5 rg5 :34 21:32 Condition: stable rgDeepika rg5 :34 21:32 Instructed on discharge instructions, Demonstrated understanding of instructions, rg5 follow-up care, medications, Prescriptions given X 1, rg5
--- NOTE | 2024-05-20 21:34 | EDPHYS ---
Physician Documentation [facility] Name: Christal Krishnamurthy Age: 78 yrs Sex: Female : 1945 Arrival Date: 05/20/2024 Time: 19:51 Bed 19 Private MD: ED Physician Regino Page HPI: 05/20 20:03 This 78 yrs old Female presents to ER via Unassigned with complaints of Gen sp4 complaint . 21:46 78-year-old female with past medical history of COPD CHF recent admission for CHF sp4 exacerbation presents with syncopal episode at home. Additional history includes history of AGUS, sinus bradycardia, paroxysmal atrial fibrillation on Xarelto, stable COPD, obstructive sleep apnea, coronary artery disease history of CABG.. Medication list include azelastine daily, Nexletol daily, famotidine 20 twice daily, fexofenadine 180 p.o. daily, levothyroxine 50 mcg daily, montelukast 10 mg daily, Entresto 24-26 daily, sertraline 50 mg daily, Xarelto 20 mg daily, Tessalon Perles as needed, Dupixent pen twice a month, Jardiance p.o. daily, furosemide 30 twice daily, ipratropium 0.5 mg nebulized as needed. Historical: - Allergies: 19:55 Adhesives; rg5 19:55 Amoxicillin; rg5 19:55 Antihistamine with decongestant; rg5 19:55 Cyanoacrylates; rg5 19:55 Eggs; rg5 19:55 Levaquin; rg5 19:55 Nexium; rg5 19:55 PENICILLINS; rg5 19:55 Wheat/glutens; rg5 19:55 wine; rg5 - PMHx: 19:55 Asthma; Congestive heart failure; pulmonary HTN (Congestive heart fa); rg5 - PSHx: 19:55 back; heart bypass; rg5 - Immunization history:: Adult Immunizations up to date. - Infectious Disease History:: Denies. - Social history:: Smoking status: Patient denies any tobacco usage or history of. ROS: 21:38 Constitutional: Negative for fever, chills, and weight loss, Positive for syncope sp4 21:38 All other systems are negative, Exam: 21:38 Constitutional: This is a well developed, well nourished patient who is awake, alert, sp4 and in no acute distress. Head/Face: Normocephalic, atraumatic. Eyes: Pupils equal round and reactive to light, extra-ocular motions intact. Lids and lashes normal. Conjunctiva and sclera are not injected. Cornea within normal limits. Periorbital areas with no swelling, redness, or edema. ENT: Nares patent. No nasal discharge, no septal abnormalities noted. Tympanic membranes are normal and external auditory canals are clear. Oropharynx with no redness, swelling, or masses, exudates, or evidence of obstruction, uvula midline. Mucous membranes moist. Neck: Trachea midline, no thyromegaly or masses palpated, and no cervical lymphadenopathy. Supple, full range of motion without nuchal rigidity, or vertebral point tenderness. Chest/axilla: Normal chest wall appearance and motion. Nontender with no deformity. No lesions are appreciated. Cardiovascular: Regular rate and rhythm with a normal S1 and S2. No gallops, murmurs, or rubs. Normal PMI, no JVD. No pulse deficits. Respiratory: Lungs have equal breath sounds bilaterally, clear to auscultation and percussion. No rales, rhonchi or wheezes noted. No increased work of breathing, no retractions or nasal flaring. Abdomen/GI: Soft, with normal bowel sounds. No distension or tympany. No guarding or rebound. No evidence of tenderness throughout. Back: No spinal tenderness. No costovertebral tenderness. Skin: Warm, dry with normal turgor. Normal color with no rashes, no lesions, and no evidence of cellulitis. MS/ Extremity: Pulses equal, no cyanosis. Neurovascular intact. Full, normal range of motion. Neuro: Awake and alert, GCS 15, oriented to person, place, time, and situation. Cranial nerves II-XII grossly intact. Motor strength 5/5 in all extremities. Sensory grossly intact. Psych: Awake, alert, with orientation to person, place and time. Behavior, mood, and affect are within normal limits 21:38 ECG was reviewed by the Attending Physician. bradycardia Vital Signs: 19:55 BP 126 / 84; Pulse 48; Resp 19; Temp 98; Pulse Ox 99% on 15 lpm Non-rebreather mask; rg5 Weight 73.94 kg; Height 5 ft. 5 in. ; Pain 0/10; 20:21 BP 126 / 84; Pulse 48; Resp 19; rg5 21:22 BP 133 / 69; Pulse 45; Resp 17; Pulse Ox 97% on 3 lpm NC; Pain 0/10; rg5 21:30 BP 136 / 66; Pulse 48; Resp 17; Pulse Ox 95% on 3 lpm NC; rg5 22:00 BP 149 / 60; Pulse 47; Resp 18; Pulse Ox 97% on 3 lpm NC; rg5 23:26 BP 159 / 72; Pulse 47; Resp 18; Pulse Ox 96% on 3 lpm NC; Pain 0/10; rg5 19:55 Body Mass Index 27.12 (73.94 kg, 165.1 cm) rg5 19:55 Pain Scale: Adult rg5 21:22 Pain Scale: Adult rg5 23:26 Pain Scale: Adult rg5 Gunn[place] Coma Score: 21:38 Eye Response: spontaneous(4). Motor Response: obeys commands(6). Verbal Response: sp4 oriented(5). Total: 15. MDM: 20:13 Medical Screening Exam initiated sp4 21:36 ED course: EXAM: CT brain without contrast HISTORY: Syncope COMPARISON: None TECHNIQUE: sp4 Multiple contiguous axial images were obtained and a CT of the brain without contrast.. Sagittal and coronal reconstruction performed. Automated exposure control, adjustment of the mA and/or kV according to patient size, and/or iterative reconstruction. Unless otherwise specified, incidental findings do not require dedicated imaging follow-up FINDINGS: An intracranial bleed is not seen Ventricles are normal caliber No extra-axial fluid collection noted Mild to moderate low-density within periventricular, deep cortical white matter likely changes secondary to small vessel disease. Cerebral atrophy No fluid within the visualized sinuses or mastoids noted. IMPRESSION: No acute intracranial abnormality noted. If the patient continues to have symptoms to suggest an acute intracranial abnormality then MRI of the brain would be recommended. . ED course: Chest - Procedure: Chest Single View HISTORY: Syncope COMPARISON: March 2024 FINDINGS: Mild opacities left upper and right lower lobes. No significant pleural effusion noted. The heart is mildly to moderately enlarged. Post surgical changes involving the chest. IMPRESSION: Bilateral pulmonary opacities suspicious for pneumonia. 21:43 Differential Diagnosis altered mental status, sepsis, flu, syncope. Data reviewed: 4 vital signs, nurses notes, EMS record, old medical records, lab test result(s), CBC, electrolytes, hepatic panel, EKG, radiologic studies, CT scan, plain films, ultrasound. Consideration of Admission/Observation Patient was admitted/placed on observation. Escalation of care including admission/observation considered. Management of patient was discussed with the following: Hospitalist: Cale ORTEGA . Front End Manager: Manny ORTEGA Cardiology . ED course: Patient stable for admission for syncope and symptomatic bradycardia.. 05/20 20:13 Order name: Basic Metabolic Panel; Complete Time: 21:18 sp4 05/20 20:13 Order name: CBC with Diff; Complete Time: 21:18 4 05/20 20:13 Order name: LFT's; Complete Time: 21:18 [facility] 05/20 20:13 Order name: Magnesium; Complete Time: 21:18 [facility] 05/20 20:13 Order name: NT PRO-BNP; Complete Time: 21:18 4 05/20 20:13 Order name: PT-INR; Complete Time: 21:18 [facility] 05/20 20:13 Order name: Troponin HS; Complete Time: 21:18 4 05/20 21:54 Order name: Urinalysis w/ reflexes [facility] 05/20 21:54 Order name: CBC with Automated Diff [facility] 05/20 21:54 Order name: CBC with Automated Diff [facility] 05/20 21:54 Order name: Comprehensive Metabolic Panel [facility] 05/20 21:54 Order name: Comprehensive Metabolic Panel [facility] 05/20 21:54 Order name: Magnesium [facility] 05/20 21:54 Order name: Magnesium [facility] 05/20 21:54 Order name: Phosphorus [facility] 05/20 21:54 Order name: Phosphorus [facility] 05/20 21:54 Order name: Troponin High Sensitivity [facility] 05/20 21:54 Order name: Troponin High Sensitivity [facility] 05/20 21:54 Order name: Troponin High Sensitivity [facility] 05/20 21:54 Order name: Troponin High Sensitivity [facility] 05/20 20:13 Order name: XRAY Chest (1 view); Complete Time: 21:36 4 05/20 20:14 Order name: CT Head Brain wo Cont; Complete Time: 21:36 4 05/20 20:14 Order name: Carotid Artery Bilateral US [facility] 05/20 20:13 Order name: EKG; Complete Time: 20:14 sp4 05/20 20:13 Order name: Cardiac monitoring; Complete Time: 20:26 sp4 05/20 20:13 Order name: EKG - Nurse/Tech; Complete Time: 20:26 sp4 05/20 20:13 Order name: IV Saline Lock; Complete Time: 20:26 sp4 05/20 20:13 Order name: Labs collected and sent; Complete Time: 20: sp4 05/20 20:13 Order name: O2 Per Protocol; Complete Time: 20: sp4 05/20 20:13 Order name: O2 Sat Monitoring; Complete Time: 20:26 sp4 05/20 21:34 Order name: Misc. Order: Apply Pure Wic; Complete Time: 21:39 sp4 EC:17 Rate is 52 beats/min. Rhythm is irregular, Sinus bradycardia with Unifocal PVCs, sp4 Occasional PVCs. QRS Lytle is Normal. CO interval is normal. QRS interval is normal. QT interval is prolonged. No Q waves. T waves are Normal. No ST changes noted. Clinical impression: No evidence of ischemia. Interpreted by me. Reviewed by me. Administered Medications: 20:38 Not Given (Physician Discretion): ns 0.9% 1000 ml IV at 75 ml/hr Per protocol; to be sp4 given as a bolus over 60 minutes 21:00 Drug: midodrine 10 mg PO once Route: PO; rg5 21:17 Follow up: Response: No adverse reaction rg5 21:49 Drug: Furosemide IVP 40 mg IVP once; give over 2 minutes Route: IVP; Site: right rg5 antecubital; 05/21 00:46 Follow up: Response: No adverse reaction rg5 Point of Care Testing: Blood Glucose: 05/20 21:26 Blood Glucose: 129 mg/dL; rg5 Ranges: Critical Glucose Levels:Adult <50 mg/dl or >400 mg/dl <40 mg/dl or >180 mg/dl Disposition Summary: 05/20/24 21:33 Hospitalization Ordered Notes: Hospitalization Status: Inpatient Admission sp4 Provider: Denilson Madsen [facility] sp[facility] Condition: Fair sp4 Problem: new sp4 Symptoms: are unchanged sp4 Bed/Room Type: Standard sp4 Room Assignment: 223(05/20/24 23:16) rv1 Diagnosis - Symptomatic bradycardia, CHF exacerbation, syncope and collapse sp4 Forms: - Medication Reconciliation Form sp4 - SBAR form sp4 - Leadership Thank You Letter sp4 Signatures: Dispatcher [employer] ED Beverley Paniagua rv1 Regino Page MD MD sp4 Bienvenido Noel RN RN rg5 Corrections: (The following items were deleted from the chart) 20:14 20:14 Head Brain Wo [id number] ordered. EDSC EDSC 23:16 21:33 sp4 rv1
[2024-05-20] MEDS ORDERED: FUROSEMIDE 40 MG/4 ML VIAL ONE (21:41)
[2024-05-20] MEDS ORDERED: ONDANSETRON 4 MG/2 ML VIAL IV PRN (21:50)
--- NOTE | 2024-05-20 21:59 | P.HP ---
Certification for Inpatient Patient admitted to: Inpatient With expected LOS: >2 Midnights Practitioner: I am a practitioner with admitting privileges, knowledge of patient current condition, hospital course, and medical plan of care. Services: Services provided to patient in accordance with Admission requirements found in Title 42 Section 412.3 of the Code of Federal Regulations Patient History Date of Service: 05/21/24 Reason for admission: Syncope/ Bradycardia History of Present Illness: 78-year-old female with a past medical history of coronary disease status post CABG, atrial fibrillation on Xarelto, chronic diastolic CHF and COPD obstructive sleep apnea on CPAP at night. She also uses oxygen intermittently at home. She was brought to ER with presyncopal episodes. Denies any passing out and loss of consciousness. But states that she has been dizzy most of the time and her heart rate was noted to be low started from 38-46. Denies any fever or chills. No chest pain or shortness of breath. Patient was assessed in the ER and is admitted for further management of bradycardia and syncope. May need evaluation for pacemaker and cardiology consult. During her last admission, she was taken off amiodarone and placed on beta- blockers. [facility]. Allergies 2-octyl cyanoacrylate [octyl 2-cyanoacrylate] Allergy (Verified 05/16/24 23:11) Anaphylaxis amoxicillin [Amoxicillin] Allergy (Verified 05/16/24 23:11) Rash egg Allergy (Verified 05/16/24 23:11) Nausea/Vomiting esomeprazole mag [From Nexium] Allergy (Verified 05/16/24 23:11) Anaphylaxis wheat Allergy (Verified 05/16/24 23:11) Anaphylaxis Antihistamines - Alkylamine Adverse Reaction (Verified 05/16/24 23:11) states in ones with decongestants it aggrevates her heart levofloxacin [From Levaquin] Adverse Reaction (Verified 05/16/24 23:11) stomach cramps metronidazole Adverse Reaction (Verified 05/16/24 23:11) stomach cramps rosuvastatin calcium [From Crestor] Adverse Reaction (Verified 05/16/24 23:11) weakness Home medications list reviewed: Yes Home Medications: Azelastine [Astelin 137MCG/Metered [place]*] 0.1 % NS DAILYPRN PRN 11/08/23 Bempedoic Acid [Nexletol] 180 mg PO DAILY 11/08/23 Estrogens, Conjugated [Premarin] 1.25 mg PO DAILY 11/08/23 Famotidine 20 mg PO BID 11/08/23 Fexofenadine HCl 180 mg PO DAILY 11/08/23 Levothyroxine [Synthroid*] 50 mcg PO DAILY 11/08/23 Montelukast [Singulair*] 10 mg PO BEDTIME 11/08/23 Sacubitril/Valsartan [Entresto 24 mg-26 mg Tablet] 24 - 26 mg PO BID 11/08/23 Sertraline [Zoloft*] 50 mg PO DAILY 11/08/23 Rivaroxaban [Xarelto*] 20 mg PO DAILY #30 tab 11/09/23 Benzonatate [Tessalon Perle*] 100 mg PO TID PRN #20 cap 04/28/24 Amiodarone HCl [Pacerone] 200 mg PO DAILY 04/29/24 Dupilumab [Dupixent Pen] 300 mg IM Q15D 04/29/24 Empagliflozin [Jardiance] 10 mg PO DAILY 04/29/24 Furosemide [Lasix*] 30 mg PO BIDL #60 tab 05/17/24 Ipratropium Neb [Atrovent*] 0.5 mg NEB [id number] PRN 05/17/24 Levalbuterol [Xopenex*] 1.25 mg NEB TIDRESP PRN 05/17/24 Potassium Chloride [K-Dur] 20 meq PO BID #60 05/17/24 - Past Medical/Surgical History Diabetic: No Past Medical History: Reviewed- Non-Contributory -: OA -: DJD -: chronic low back pain -: Depression -: History of falls -: Asthma -: WINNIE -: Chronic lung disease on home 02 prn and HS -: Hypothyroidism -: CHF -: chronic pulm HTN on home oxygen 1 L at bedtime -: CAD s/p CABG Past Surgical History: Reviewed- Non-Contributory -: X4 Back surgeries -: Hystertectomy -: Knee scraping of deposits Psychosocial/ Personal History: , retired, good family support, lives in a 2 story home - Family History Family History: Reviewed- Non-Contributory - Social History Smoking Status: Never smoker Alcohol use: Yes CD- Drugs: No Caffeine use: Yes Review of Systems 10-point ROS is otherwise unremarkable Physical Examination - Vital Signs Temperature: 98 F Blood Pressure: 126/84 Pulse: 46 Respirations: 18 Pulse Ox (%): 94 - Physical Exam General: Alert, In no apparent distress, Oriented x3 HEENT: Atraumatic, Normocephalic Neck: Supple, JVD not distended Respiratory: Clear to auscultation bilaterally, Normal air movement Cardiovascular: Other (bradycardia ) Capillary refill: <2 Seconds Gastrointestinal: Soft and benign, W/out hepatosplenomegaly Musculoskeletal: No clubbing, No swelling Integumentary: No rashes, No breakdown Neurological: Normal speech, Normal strength at 5/5 x4 extr, Cranial nerves 3-12 intact Lymphatics: No axilla or inguinal lymphadenopathy - Studies Laboratory Data (last 24 hrs) 05/20/24 05/20/24 05/20/24 20:30 20:30 20:30 WBC 6.30 Hgb 11.2 L Hct 32.8 L Plt Count 160 PT 34.0 H INR 3.14 Sodium 139 Potassium 4.1 BUN 26 H Creatinine 1.23 H Glucose 129 H Magnesium 2.4 Total Bilirubin 0.6 AST 36 ALT 26 Alkaline Phosphatase 41 L Assessment and Plan - Plan Syncope Bradycardia Acute on chronic diastolic CHF Pulmonary hypertension COPD Obstructive sleep apnea Coronary artery disease status post CABG Atrial fibrillation Hypothyroidism Plan: Will admit inpatient with telemetry Will hold beta-blockers due to bradycardia Check electrolytes Replete electrolytes if needed Cardiology consulted Syncope workup with carotid Doppler and echocardiogram Continue home medications and reassess GI/DVT prophylaxis Advanced directive full code Discharge Plan: Home Plan to discharge in: 48 Hours - Advance Directives Does patient have a Living Will: Yes Does patient have a Durable POA for Healthcare: No - Code Status/Comfort Care Code Status: Full Code Time Spent Managing Pts Care (In Minutes): 48
[2024-05-21] MEDS ORDERED: LEVALBUTEROL 1.25 MG/3 ML NEB NEB PRN (01:03)
[2024-05-21] MEDS ORDERED: IPRATROPIUM BROM 0.5MG/2.5ML NEB PRN (01:03)
--- NOTE | 2024-05-21 01:21 | RAD REPORT ---
EXAMINATION: US CAROTID DOPPLER BILATERAL INDICATION: Syncope COMPARISON: None TECHNIQUE: Duplex scan of the bilateral carotid and vertebral artery performed using B-mode/grayscale imaging and Doppler spectral analysis and color flow evaluation. Measurement of carotid stenosis is based on criteria described in the [place] Symptomatic Carotid Endarterectomy Trial (NASCET ). NASCET criteria for estimating stenosis compares the normal distal ICA diameter with the standard proximal ICA diameter. Sonographic estimation of stenosis is based on ratio of the stenose d segment of ICA to the distal common carotid artery velocity as well as absolute velocity criteria. FINDINGS: RIGHT CAROTID Peak systolic velocity distal CCA: 83.1 cm/sec. CCA appears tortuous in its course. Highest peak systolic velocity RIGHT ICA: 69.0 cm/sec at mid segment. Plaque: Moderate calcified plaque at the bulb. Right ICA/CCA ratio: 0.83 Right external carotid artery: Patent. Right vertebral artery: Antegrade with multiphasic waveform. LEFT CAROTID: Peak systolic velocity distal CCA: 54.7 cm/sec. CCA appears tortuous in its course. Highest peak systolic velocity LEFT ICA: 87.1 cm/sec at distal segment. Plaque: Mild to moderate plaque at the bulb. Left ICA/CCA ratio: 1.59 Left external carotid artery: Patent with multiphasic waveform. Left vertebral artery: Antegrade with multiphasic waveform. Other: None. IMPRESSION: 1. No evidence of hemodynamically significant carotid artery stenosis. 2. Antegrade bilateral vertebral artery flow. Electronically signed by: Elisa Man MD 05/21/2024 12:18 AM [facility] Due to temporary technical issues with the PACS/Hoard reporting system, reports are being vaibhav d by the in-house radiologist without review as a courtesy to ensure prompt reporting the interpreting radiologist is fully responsible for the content of the report. Transcribed Date/Time: 05/21/2024 1:20 AM
[2024-05-21 03:11] LABS: Specific Gravity 1.007 (1.005-1.030); Sqamous Epithelial None Seen /HPF (None Seen); Urine Bacteria None Seen /HPF (<20); Urine Bilirubin NEGATIVE (Negative); Urine Blood Negative (Negative); Urine Clarity Clear (Clear); Urine Color Colorless (Yellow); Urine Culture Reflex Order NOT NEEDED; Urine Glucose 3+ (Negative); Urine Ketones NEGATIVE (Negative); Urine Microscopic Reflex YN ORDER UMIC; Urine Nitrite NEGATIVE (Negative); Urine Protein NEGATIVE (Negative); Urine RBC <5 /HPF (None Seen); Urine Urobilinogen Normal (Normal); Urine WBC <5 /HPF (<5)
[2024-05-21 07:05] LABS: Absolute Eosinophils 0.2 K/uL (0-0.5); Absolute Lymphocytes (CBC) 2.6 K/uL (0.7-4.9); Absolute Neutrophil 3.1 K/uL (1.8-8.0); Basophils % 0.3 % (0-1.3); Eosinophils % 2.9 % (0-4.4); Hematocrit 33.5 % (36.0-45.0); Hemoglobin 11.5 g/dL (12.0-15.0); MCH 34.1 pg (27.0-35.0); MCHC 34.3 g/dL (32.0-36.0); MCV 99.4 fL (80-100); MPV 8.8 fL (7.6-11.3); Neutrophils % 44.8 % (41.7-73.7); Nucleated Red Blood Cells % 0.2 % (0-0); Platelets 196 thou/uL (152-406); RBC Red Blood Cell Count 3.37 M/uL (3.86-4.86); Red Cell Distribution Width 14.2 % (12.1-15.2)
[2024-05-21 07:24] LABS: Albumin 2.8 g/dL (3.4-5.0); Albumin/Globulin Ratio 0.7 (1.1-1.8); Anion Gap 7.6 mEq/L (5.0-15.0); Bilirubin Total 0.7 mg/dL (0.2-1.0); Globulin 3.8 g/dL (2.3-3.5); Magnesium 2.4 mg/dL (1.6-2.4); Phosphorus 3.5 mg/dL (2.5-4.9); Potassium 3.6 mEq/L (3.5-5.1); Protein, Total 6.6 g/dL (6.4-8.2)
[2024-05-21 07:33] LABS: T3 Free 1.69 pg/mL (2.18-3.98); Thyroid Stimulating Hormone 3.9 uIU/mL (0.358-3.740)
[2024-05-21] MEDS ORDERED: FUROSEMIDE 20 MG TABLET PO SCH (09:00)
[2024-05-21] MEDS: FUROSEMIDE 20 MG TABLET PO SCH (09:02)
[2024-05-21] MEDS: POTASSIUM CL SA 10 MEQ TAB PO ONE (09:02)
[2024-05-21] MEDS: ENOXAPARIN 40 MG/0.4 ML SQ SCH (09:02)
[2024-05-21] MEDS: LEVOTHYROXINE SOD 0.05 MG TABLET PO SCH (09:02)
--- NOTE | 2024-05-21 15:54 | P.PN ---
Subjective Date of Service: 05/21/24 Chief Complaint: Syncope/ Bradycardia Admitted for symptomatic bradycardia, she reports recurrent issues with bradycardia, <Cookie Hart - Last Filed: 05/21/24 15:55> Date of Service: 05/21/24 <Abdoulaye Hernandez - Last Filed: 05/27/24 05:04> Review of Systems 10-point ROS is otherwise unremarkable <Cookie Hart - Last Filed: 05/21/24 15:55> Physical Examination - Vital Signs Temperature: 97.5 F Blood Pressure: 134/70 Pulse: 55 Respirations: 16 Pulse Ox (%): 98 - Physical Exam General: Alert, In no apparent distress, Oriented x3 HEENT: Atraumatic, Normocephalic Neck: Supple, 2+ carotid pulse no bruit Respiratory: Normal air movement, Other (Hypoxia, O2 dependent) Cardiovascular: No edema, Normal pulses, Other (Bradycardia) Gastrointestinal: Normal bowel sounds, Soft and benign Integumentary: No breakdown, No significant lesion Neurological: Normal speech, Normal strength at 5/5 x4 extr - Studies Laboratory Data (last 24 hrs) 05/20/24 05/20/24 05/20/24 20:30 20:30 20:30 WBC 6.30 Hgb 11.2 L Hct 32.8 L Plt Count 160 PT 34.0 H INR 3.14 Sodium 139 Potassium 4.1 BUN 26 H Creatinine 1.23 H Glucose 129 H Magnesium 2.4 Total Bilirubin 0.6 AST 36 ALT 26 Alkaline Phosphatase 41 L <Cookie Hart - Last Filed: 05/21/24 15:55> Assessment And Plan - Plan Assessment and Plan - Plan Syncope Symptomatic bradycardia Acute on chronic diastolic CHF Pulmonary hypertension COPD Obstructive sleep apnea Coronary artery disease status post CABG Atrial fibrillation Hypothyroidism Dependent on home O2 Plan: Will admit inpatient with telemetry Will hold beta-blockers due to bradycardia Check electrolytes Replete electrolytes if needed Cardiology consulted Syncope workup with carotid Doppler and echocardiogram Continue home medications and reassess GI/DVT prophylaxis Advanced directive full code Discharge Plan: Home Plan to discharge in: 48 Hours - Advance Directives Does patient have a Living Will: Yes Does patient have a Durable POA for Healthcare: No - Code Status/Comfort Care Code Status: Full Code Time Spent Managing Pts Care (In Minutes): 35 Discharge Plan: Home - Code Status/Comfort Care Code Status: Full Code Critical Care: No Time Spent Managing PTS Care (In Minutes): 35 <Cookie Hart - Last Filed: 05/21/24 15:55> Date of Service: 05/21/24 Chart has been reviewed. Events of the last 24 hours have been noted. Case discussed with STEFF. I performed a substantial part of the MDM during this patient's care today. I personally made or approved the documented management plan and acknowledge its risk of complications. I agree with the findings and documentation provided in the STEFF's notes <Abdoulaye Hernandez - Last Filed: 05/27/24 05:04>
[2024-05-21] MEDS: POTASSIUM CL SA 10 MEQ TAB PO SCH (20:02)
[2024-05-21] MEDS: SACUBITRIL/VALSARTAN 24/26 MG TAB PO SCH (20:02)
[2024-05-21] MEDS: MONTELUKAST 10 MG TAB PO SCH (20:03)
[2024-05-21 23:25] VITALS: BMI 27.1
[2024-05-22] MEDS: ACETAMINOPHEN 325 MG TABLET PO PRN (06:20)
[2024-05-22] MEDS: FAMOTIDINE 20 MG TAB PO SCH (08:55)
[2024-05-22] MEDS: SERTRALINE HCL 50 MG TAB PO SCH (08:55)
[2024-05-22] MEDS ORDERED: RIVAROXABAN 10 MG TABLET PO SCH (09:00)
--- NOTE | 2024-05-22 12:17 | P.CNS ---
Date of Consult: 05/22/24 Chief Complaint: Syncope/ Bradycardia History of Present Illness: Patient with PMH of atrial fibrillation, CAD and CABG, combined heart failure, WINNIE presented with syncope, per she passed out while she was sitting on the table with eyes open but non responsive, denies having chest pain, no SOB, patient usually follows up in the medical center. Allergies 2-octyl cyanoacrylate [octyl 2-cyanoacrylate] Allergy (Verified 05/16/24 23:11) Anaphylaxis amoxicillin [Amoxicillin] Allergy (Verified 05/16/24 23:11) Rash egg Allergy (Verified 05/16/24 23:11) Nausea/Vomiting esomeprazole mag [From Nexium] Allergy (Verified 05/16/24 23:11) Anaphylaxis wheat Allergy (Verified 05/16/24 23:11) Anaphylaxis Antihistamines - Alkylamine Adverse Reaction (Verified 05/16/24 23:11) states in ones with decongestants it aggrevates her heart levofloxacin [From Levaquin] Adverse Reaction (Verified 05/16/24 23:11) stomach cramps metronidazole Adverse Reaction (Verified 05/16/24 23:11) stomach cramps rosuvastatin calcium [From Crestor] Adverse Reaction (Verified 05/16/24 23:11) weakness Home medications list reviewed: Yes Home Medications: Azelastine [Astelin 137MCG/Metered [place]*] 0.1 % NS DAILYPRN PRN 11/08/23 Bempedoic Acid [Nexletol] 180 mg PO DAILY 11/08/23 Estrogens, Conjugated [Premarin] 1.25 mg PO DAILY 11/08/23 Famotidine 20 mg PO BID 11/08/23 Fexofenadine HCl 180 mg PO DAILY 11/08/23 Levothyroxine [Synthroid*] 50 mcg PO DAILY 11/08/23 Montelukast [Singulair*] 10 mg PO BEDTIME 11/08/23 Sacubitril/Valsartan [Entresto 24 mg-26 mg Tablet] 24 - 26 mg PO BID 11/08/23 Sertraline [Zoloft*] 50 mg PO DAILY 11/08/23 Rivaroxaban [Xarelto*] 20 mg PO DAILY #30 tab 11/09/23 Amiodarone HCl [Pacerone] 200 mg PO DAILY 04/29/24 Dupilumab [Dupixent Pen] 300 mg IM Q15D 04/29/24 Empagliflozin [Jardiance] 10 mg PO DAILY 04/29/24 Furosemide [Lasix*] 30 mg PO BIDL #60 tab 05/17/24 Potassium Chloride [K-Dur] 20 meq PO BID #60 05/17/24 - Past Medical/Surgical History Diabetic: No -: OA -: DJD -: chronic low back pain -: Depression -: History of falls -: Asthma -: WINNIE -: Chronic lung disease on home 02 prn and HS -: Hypothyroidism -: CHF -: chronic pulm HTN on home oxygen 1 L at bedtime -: CAD s/p CABG -: X4 Back surgeries -: Hystertectomy -: Knee scraping of deposits -: cardiac bypass Psychosocial/ Personal History: , retired, good family support, lives in a 2 story home - Social History Smoking Status: Former smoker Alcohol use: Yes CD- Drugs: No Caffeine use: Yes Place of Residence: Home Review of Systems 10-point ROS is otherwise unremarkable Physical Examination Temp Pulse Resp BP Pulse Ox 97.7 F 46 L 12 151/76 H 99 05/22/24 08:00 05/22/24 08:55 05/22/24 08:00 05/22/24 08:55 05/22/24 08:00 General: Alert, In no apparent distress HEENT: Atraumatic, PERRLA, Mucous membr. moist/pink, EOMI, Sclerae nonicteric Neck: Supple, 2+ carotid pulse no bruit, No LAD, Without JVD or thyroid abnormality Respiratory: Clear to auscultation bilaterally, Normal air movement Cardiovascular: Regular rate/rhythm, Normal S1 S2 Gastrointestinal: Normal bowel sounds, No tenderness Musculoskeletal: No tenderness Integumentary: No rashes Neurological: Normal gait, Normal speech, Normal tone, Normal affect Lymphatics: No axilla or inguinal lymphadenopathy - Problems (1) Bradycardia Current Visit: Yes Status: Acute Plan: patient with PMH of atrial fibrillation on Xarelto, she is presenting with symptomatic bradycardia, tele shows HR in the 40s, no pauses but she is having syncope. - patient is off AVN blocking agents. - patient will need to be transferred to tertiary center to be evaluated for pacemaker placement.
--- NOTE | 2024-05-22 14:00 | P.DS ---
Admission Date: 05/20/24 Discharge Date: 05/22/24 Reason for Admission: Syncope/ Bradycardia Brief History of Present Illness: 78-year-old female with a past medical history of coronary disease status post CABG, atrial fibrillation on Xarelto, chronic diastolic CHF and COPD obstructive sleep apnea on CPAP at night. She also uses oxygen intermittently at home. She was brought to ER with presyncopal episodes. Denies any passing out and loss of consciousness. But states that she has been dizzy most of the time and her heart rate was noted to be low started from 38-46. Denies any fever or chills. No chest pain or shortness of breath. - Physical Exam General: Alert, In no apparent distress, Oriented x3 HEENT: Atraumatic, Normocephalic Neck: Supple, JVD not distended Respiratory: Clear to auscultation bilaterally, Normal air movement Cardiovascular: Other (bradycardia ) Capillary refill: <2 Seconds Gastrointestinal: Soft and benign, W/out hepatosplenomegaly Musculoskeletal: No clubbing, No swelling Integumentary: No rashes, No breakdown Neurological: Normal speech, Normal strength at 5/5 x4 extr, Cranial nerves 3-12 intact Lymphatics: No axilla or inguinal lymphadenopathy Hospital Course: 78-year-old female with a past medical history of coronary disease status post CABG, atrial fibrillation on Xarelto, chronic diastolic CHF and COPD obstructive sleep apnea on CPAP at night. She also uses oxygen intermittently at home. She was brought to ER with presyncopal episodes. Denies any passing out and loss of consciousness. But states that she has been dizzy most of the time and her heart rate was noted to be low started from 38-46. Denies any fever or chills. No chest pain or shortness of breath. She was seen by cardiology. Plan to transfer for higher care to [facility] for EP services for symptomatic bradycardia for cardiology request. Assessment Syncope due to symptomatic bradycardia-plan to transfer to [facility] for cardiology evaluation for symptomatic bradycardia Symptomatic bradycardia -beta-blockers on hold, Acute on chronic diastolic CHF-gentle diuretic Pulmonary hypertension-Home O2 dependent COPD -resume home meds Obstructive sleep apnea-CPAP at bedtime Coronary artery disease status post CABG telemetry Atrial fibrillation amiodarone, Entresto on hold Hypothyroidism resume home meds Dependent on home O2 Continue home medicines as previously prescribed GOAL: Clear understanding of disease process INSTRUCTIONS: Physician Discharge Instructions: Transferred to [facility] for cardiology EP evaluation for symptomatic bradycardia -Please call Dr. Hernandez at [phone] if any questions regarding hospital stay -Please call nursing station at [phone] if any nursing or medication questions Diet: ADA, low sodium Activity: Fall precautions <Cookie Hart - Last Filed: 05/23/24 19:22> Admission Date: 05/20/24 Discharge Date: 05/22/24 Hospital Course: Chart has been reviewed. Events of the last 24 hours have been noted. Case discussed with STEFF. I performed a substantial part of the MDM during this patient's care today. I personally made or approved the documented management plan and acknowledge its risk of complications. I agree with the findings and documentation provided in the STEFF's notes <Abdoulaye Hernandez - Last Filed: 05/27/24 05:05> Disposition: [facility] Discharge Condition: FAIR Vital Signs/Physical Exam: Temp Pulse Resp BP Pulse Ox 97.5 F 42 L 12 129/72 98 05/22/24 12:00 05/22/24 12:00 05/22/24 12:00 05/22/24 12:00 05/22/24 12:00 Laboratory Data at Discharge: WBC 7.00 thou/uL (4.3-10.9) 05/21/24 06:18 Hgb 11.5 g/dL (12.0-15.0) L 05/21/24 06:18 Hct 33.5 % (36.0-45.0) L 05/21/24 06:18 Plt Count 196 thou/uL (152-406) 05/21/24 06:18 PT 34.0 SECONDS (9.4-12.5) H 05/20/24 20:30 INR 3.14 05/20/24 20:30 Sodium 141 mEq/L (136-145) 05/21/24 06:18 Potassium 3.6 mEq/L (3.5-5.1) 05/21/24 06:18 BUN 26 mg/dL (7-18) H 05/21/24 06:18 Creatinine 1.11 mg/dL (0.55-1.02) H 05/21/24 06:18 Glucose 95 mg/dL (74-106) 05/21/24 06:18 Phosphorus 3.5 mg/dL (2.5-4.9) 05/21/24 06:18 Magnesium 2.4 mg/dL (1.6-2.4) 05/21/24 06:18 Total Bilirubin 0.7 mg/dL (0.2-1.0) 05/21/24 06:18 AST 27 U/L (15-37) 05/21/24 06:18 ALT 23 U/L (13-56) 05/21/24 06:18 Alkaline Phosphatase 35 U/L (45-117) L 05/21/24 06:18 <Cookie Hart - Last Filed: 05/23/24 19:22> Vital Signs/Physical Exam: Temp Pulse Resp BP Pulse Ox 97.5 F 54 18 126/73 93 05/22/24 20:00 05/22/24 20:00 05/22/24 20:00 05/22/24 20:00 05/22/24 20:00 Laboratory Data at Discharge: WBC 7.00 thou/uL (4.3-10.9) 05/21/24 06:18 Hgb 11.5 g/dL (12.0-15.0) L 05/21/24 06:18 Hct 33.5 % (36.0-45.0) L 05/21/24 06:18 Plt Count 196 thou/uL (152-406) 05/21/24 06:18 PT 34.0 SECONDS (9.4-12.5) H 05/20/24 20:30 INR 3.14 05/20/24 20:30 Sodium 141 mEq/L (136-145) 05/21/24 06:18 Potassium 3.6 mEq/L (3.5-5.1) 05/21/24 06:18 BUN 26 mg/dL (7-18) H 05/21/24 06:18 Creatinine 1.11 mg/dL (0.55-1.02) H 05/21/24 06:18 Glucose 95 mg/dL (74-106) 05/21/24 06:18 Phosphorus 3.5 mg/dL (2.5-4.9) 05/21/24 06:18 Magnesium 2.4 mg/dL (1.6-2.4) 05/21/24 06:18 Total Bilirubin 0.7 mg/dL (0.2-1.0) 05/21/24 06:18 AST 27 U/L (15-37) 05/21/24 06:18 ALT 23 U/L (13-56) 05/21/24 06:18 Alkaline Phosphatase 35 U/L (45-117) L 05/21/24 06:18 <Abdoulaye Hernandez - Last Filed: 05/27/24 05:05> Diet: Low sodium Time spent managing pt's care (in minutes): 45 <Cookie Hart - Last Filed: 05/23/24 19:22> <Abdoulaye Hernandez - Last Filed: 05/27/24 05:05> Home Medications: Azelastine [Astelin 137MCG/Metered [place]*] 0.1 % NS DAILYPRN PRN 11/08/23 Bempedoic Acid [Nexletol] 180 mg PO DAILY 11/08/23 Estrogens, Conjugated [Premarin] 1.25 mg PO DAILY 11/08/23 Famotidine 20 mg PO BID 11/08/23 Fexofenadine HCl 180 mg PO DAILY 11/08/23 Levothyroxine [Synthroid*] 50 mcg PO DAILY 11/08/23 Montelukast [Singulair*] 10 mg PO BEDTIME 11/08/23 Sertraline [Zoloft*] 50 mg PO DAILY 11/08/23 Rivaroxaban [Xarelto*] 20 mg PO DAILY #30 tab 11/09/23 Amiodarone HCl [Pacerone] 200 mg PO DAILY 04/29/24 Dupilumab [Dupixent Pen] 300 mg IM Q15D 04/29/24 Empagliflozin [Jardiance] 10 mg PO DAILY 04/29/24 Furosemide [Lasix*] 30 mg PO BIDL #60 tab 05/17/24 Potassium Chloride [K-Dur] 20 meq PO BID #60 05/17/24 Acetaminophen [Tylenol*] 650 mg PO Q4HP PRN tab 05/22/24 Enoxaparin Sodium [Lovenox 40 MG INJ*] 40 mg SQ DAILY syr 05/22/24 Ipratropium Neb [Atrovent*] 0.5 mg NEB [id number] PRN amp 05/22/24 Levalbuterol [Xopenex*] 1.25 mg NEB TIDRESP PRN vial 05/22/24 Physician Discharge Instructions: 78-year-old female with a past medical history of coronary disease status post CABG, atrial fibrillation on Xarelto, chronic diastolic CHF and COPD obstructive sleep apnea on CPAP at night. She also uses oxygen intermittently at home. She was brought to ER with presyncopal episodes. Denies any passing out and loss of consciousness. But states that she has been dizzy most of the time and her heart rate was noted to be low started from 38-46. Denies any fever or chills. No chest pain or shortness of breath. She was seen by cardiology. Plan to transfer for higher care to [facility] for EP services for symptomatic bradycardia for cardiology request. Assessment Syncope due to symptomatic bradycardia-plan to transfer to [facility] for cardiology evaluation for symptomatic bradycardia Symptomatic bradycardia -beta-blockers on hold, Acute on chronic diastolic CHF-gentle diuretic Pulmonary hypertension-Home O2 dependent COPD -resume home meds Obstructive sleep apnea-CPAP at bedtime Coronary artery disease status post CABG telemetry Atrial fibrillation amiodarone, Entresto on hold Hypothyroidism resume home meds Dependent on home O2 Continue home medicines as previously prescribed GOAL: Clear understanding of disease process INSTRUCTIONS: Physician Discharge Instructions: Transferred to [facility] for cardiology EP evaluation for symptomatic bradycardia -Please call Dr. Hernandez at [phone] if any questions regarding hospital stay -Please call nursing station at [phone] if any nursing or medication questions Diet: ADA, low sodium Activity: Fall precautions Followup: Ernesto Bryant MD [ACTIVE - CAN ADMIT] - Ant Li MD [Primary Care Provider] -
[2024-05-22 21:44] VITALS: BP 126/73; TEMP 97.5
[2024-05-22 22:30] VITALS: O2SAT 93
--- NOTE | 2024-05-23 13:54 | EKG ---
Test Date: 2024-04-28 Test Time: 13:35:51 Gas Engineer: BYRON MEASUREMENT RESULTS: Intervals: Rate: 50 ID: [id number] QRSD: 112 QT: 500 QTc: 455 [place]: P: 52 ID: [id number] QRS: -49 T: 50 INTERPRETIVE STATEMENTS: Sinus bradycardia Left anterior fascicular block Nonspecific ST and T wave abnormality Abnormal ECG Compared to ECG 04/26/2024 16:22:20 Left anterior fascicular block now present Ventricular premature complex(es) no longer present Left-axis deviation no longer present Left bundle-branch block no longer present Prolonged QT interval no longer present ST (T wave) deviation still present Electronically Signed On 05-23-24 13:40:47 POLLS OR SURVEYS INTERVIEWER by Eric Fagan
--- NOTE | 2024-05-26 11:24 | EKG ---
Test Date: 2024-05-20 Test Time: 20:17:16 Sr Vice President: MEASUREMENT RESULTS: Intervals: Rate: 52 AL: 208 QRSD: 106 QT: 544 QTc: 505 [place]: P: 27 AL: 208 QRS: -52 T: 21 INTERPRETIVE STATEMENTS: Sinus bradycardia with occasional premature ventricular complexes Left anterior fascicular block ST & T wave abnormality, consider anterior ischemia Prolonged QT Abnormal ECG Compared to ECG 05/16/2024 18:49:02 Left anterior fascicular block now present Left-axis deviation no longer present ST (T wave) deviation still present Possible ischemia still present Electronically Signed On 05-26-24 11:17:37 SENIOR QUALITY TECHNICIAN by Ernesto Bryant
== END 2024-05-22 22:45 | disposition short-term general hospital (02) | DRG 308 ==
LOC: ER 19:51 → ERHOLD 21:50 → 2ND 23:24
PROVIDERS: ADMIT Family Medicine; ATTEND Family Medicine
DX: R00.1 Bradycardia, unspecified (principal); I50.33 Acute on chronic diastolic (congestive) heart failure; I25.10 Atherosclerotic heart disease of native coronary artery without angina pectoris; Z95.1 Presence of aortocoronary bypass graft; I48.91 Unspecified atrial fibrillation; J44.9 Chronic obstructive pulmonary disease, unspecified; E03.9 Hypothyroidism, unspecified; I27.20 Pulmonary hypertension, unspecified; J45.909 Unspecified asthma, uncomplicated; G47.33 Obstructive sleep apnea (adult) (pediatric); M19.90 Unspecified osteoarthritis, unspecified site; F32.A Depression, unspecified; Z99.81 Dependence on supplemental oxygen
CPT/HCPCS: 36415; 70450; 71045; 80048; 80053; 80076; 81001; 83735; 83880; 84100; 84439; 84443; 84481; 84484; 85025; 85610; 93005; 93880; 94760; 96374; 99285; J1650; J1940; J7614; J7644

== ENCOUNTER 2024-10-09 09:20 | Day surgery (SDC) | payer OTHER ==
[2024-10-06 11:05] LABS: Absolute Eosinophils 0.3 K/uL (0-0.5); Absolute Lymphocytes (CBC) 2.3 K/uL (0.7-4.9); Absolute Monocytes 0.7 K/uL (0.1-1.3); Absolute Neutrophil 2.7 K/uL (1.8-8.0); Basophils % 0.6 % (0-1.3); Eosinophils % 4.5 % (0-4.4); Hematocrit 38.1 % (36.0-45.0); Hemoglobin 13.2 g/dL (12.0-15.0); Lymphocytes % 38.8 % (15.3-44.8); MCH 33.1 pg (27.0-35.0); MCHC 34.7 g/dL (32.0-36.0); MCV 95.4 fL (80-100); MPV 9.6 fL (7.6-11.3); Monocytes % 11.6 % (3.3-12.3); Neutrophils % 44.5 % (41.7-73.7); Platelets 184 thou/uL (152-406); Red Cell Distribution Width 13.9 % (12.1-15.2)
[2024-10-06 11:12] LABS: PTT, Activated Partial Thromb 60.7 SECONDS (27.2-37.4); Protime INR 3.44
[2024-10-06 11:20] LABS: Anion Gap 8.5 mEq/L (5.0-15.0); Potassium 4.5 mEq/L (3.5-5.1)
--- NOTE | 2024-10-06 12:36 | RAD REPORT ---
EXAMINATION: TWO VIEW CHEST XR CLINICAL INDICATION: Female, 79 years old. 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 Hypertension TECHNIQUE: 2 view radiographs of the chest were performed. COMPARISON: 03/20/2024 FINDINGS: The lungs are well inflated and clear. No pneumothorax or sizable effusion. The heart is normal in si ze. Mediastinal contours are unchanged, with left chest wall pacer in place, and CABG. IMPRESSION: No acute or significant abnormalities.
--- NOTE | 2024-10-08 12:26 | EKG ---
Test Date: 2024-10-06 Test Time: 10:48:38 Body Mechanic Apprentice: BT MEASUREMENT RESULTS: Intervals: Rate: 63 DC: 264 QRSD: 114 QT: 452 QTc: 462 [place]: P: DC: 264 QRS: -49 T: 41 INTERPRETIVE STATEMENTS: Electronic atrial pacemaker Left anterior fascicular block Anterior infarct, age undetermined Abnormal ECG Compared to ECG 05/20/2024 20:17:16 Myocardial infarct finding now present Sinus bradycardia no longer present Ventricular premature complex(es) no longer present ST (T wave) deviation no longer present Possible ischemia no longer present Prolonged QT interval no longer present Electronically Signed On 10-08-24 12:24:33 CDT by Ernesto Bryant
[2024-10-09] MEDS ORDERED: NA CHLORIDE 0.9% 500 ML ONE (09:35)
[2024-10-09 09:56] LABS: PT Prothrombin Time 12.4 SECONDS (10-13.0); Protime INR 1.09
[2024-10-09] MEDS ORDERED: ATROPINE SULF 1 MG/10 ML SYR IV ONE (11:07)
[2024-10-09] MEDS ORDERED: LIDOCAINE 1% 20 ML MDV ONE (11:07)
[2024-10-09] MEDS ORDERED: HEPA 1000U/500MLS 2,000 UNIT/1,000 ML BAG IV ONE (11:07)
[2024-10-09] MEDS ORDERED: MIDAZOLAM HCL 2 MG/2 ML INJ ONE (11:07)
[2024-10-09] MEDS ORDERED: HEPARIN 10,000 UNIT/10 ML VIAL IV ONE (11:07)
[2024-10-09] MEDS ORDERED: TICAGRELOR 90 MG TABLET PO ONE (11:08)
[2024-10-09] MEDS ORDERED: FENTANYL CITR 100 MCG/2 ML ONE (11:08)
[2024-10-09] MEDS ORDERED: ASPIRIN 325 MG TAB ONE (11:08)
[2024-10-09] MEDS ORDERED: HEPARIN 5000 UNIT/ML 1 ML VIAL ONE (11:08)
[2024-10-09] MEDS ORDERED: CLOPIDOGREL 75 MG TABLET ONE (11:08)
[2024-10-09] MEDS ORDERED: FLUMAZENIL 0.1 MG/ML (5 mL VIAL) IV ONE (11:09)
[2024-10-09] MEDS ORDERED: NALOXONE 0.4 MG/ML VIAL ONE (11:09)
[2024-10-09 15:01] VITALS: BP 128/73; O2SAT 97
--- NOTE | 2024-10-10 21:35 | OP ---
Date of Procedure: 10/09/2024 Surgeon: Ernesto Bryant Procedure Performed: 1. Selective coronary angiogram. 2. Percutaneous coronary intervention of the left anterior descending with Synergy 3.0 x 16 mm drug-e luting stent. Indication For Procedure: Unstable angina, abnormal stress test with failed bypass in the past. Complications: None. Estimated Blood Loss: Less than 50 cc. Access: Right common femoral artery, closed by an Angio-Seal. Sedation Time: 30 minutes with 1 of Versed and 25 of fentanyl. Description Of Procedure: After risks, benefits, and alternatives were explained to the patient, pat korina agreed to proceed with procedure and signed informed consent. The patient was brought back to [facility] laboratory chemical assistant, prepped and draped in a sterile fashion. Time-out was performed. Sedation was administ ered. Next, right common femoral artery access was obtained using ultrasound-guided micropuncture te chnique. JL4 catheter was advanced to the aortic root for selective angiogram of the left coronary s ystem that was later exchanged with a JR4 catheter for the selective angiogram of the right coronary system. That catheter was later exchanged for an TRACIE catheter for the ANDERSON shot, which was later exc hanged for an XB LAD 3.0 mm guide to the left main artery. Heparin was administered. ACT was therap eutic. Next, we passed the Runthrough wire across the lesion. We pre-dilated the mid LAD lesion wit h NC 2.5 mm balloon. After that, we placed a Synergy 3.0 x 16 mm drug-eluting stent. This was postd ilated with 3.25 mm NC balloon. Final angiogram shows PARVEZ-3 flow. Wires were removed. Guide was r emoved. Sheath was removed and Angio-Seal applied. Hemostasis was achieved and patient was moved ba to recovery in stable condition. Findings: 1. Left main: Normal. 2. LAD with mid 80% disease, status post PCI as above. 3. Left circ: Mild luminal irregularities. 4. RCA: Mid 20% to 30% disease, then mild luminal irregularities. 5. ANDERSON is atretic. Assessment And Plan: Significant mid left anterior descending disease, status post percutaneous mike nary intervention as above. Plan: 1. Continue aspirin 81 mg daily for life. 2. Brilinta 180 x1 was given in the laboratory chemical assistant, continue Brilinta 90 mg p.o. b.i.d. for 12 months. MODESTO/BECKY Voice ID: [id number] Report ID: [id number]
== END 2024-10-09 15:45 | disposition home or self-care (01) ==
LOC: CCL 09:20
PROVIDERS: ADMIT Internal Medicine; ATTEND Internal Medicine Interventional Cardiology
DX: I25.110 Atherosclerotic heart disease of native coronary artery with unstable angina pectoris (principal); I50.22 Chronic systolic (congestive) heart failure; I48.0 Paroxysmal atrial fibrillation; Z95.1 Presence of aortocoronary bypass graft; Z95.0 Presence of cardiac pacemaker; Z79.899 Other long term (current) drug therapy; Z88.0 Allergy status to penicillin; Z88.1 Allergy status to other antibiotic agents; Z88.8 Allergy status to other drugs, medicaments and biological substances; Z91.012 Allergy to eggs; Z91.018 Allergy to other foods; Z91.040 Latex allergy status
CPT/HCPCS: 93005; 85025; 80048; 36415 ×2; 85610 ×2; 85347; 85730; 71046; 93455; 76937; C1893; C1760; Q9967; C1725; C1877; C9600; J1644; J2003; J2250; J3010; J7040; C1874; 93458; 99152; J0461; J2310